=== PATIENT | male | born 1945 | race Caucasian/White ===

== ENCOUNTER 2017-10-19 08:45 | Outpatient (RCR) | payer MEDICARE, SELFPAY ==
--- NOTE | 2017-10-15 10:54 | PT.OTN ---
Current Diagnoses Parkinson's disease (10/15/17) Unspecified abnormalities of gait and mobility (10/15/17) Transition note: On October 13, 2017 our therapy services consisting of Speech, Occupational, and Physical Therapy transitioned from the [employer] electronic documentation system to a new [employer] electronic documentation system.?? All documentation prior to October 13 can be found under [employer] saved data. From October 13 forward all medical record documentation will be in [employer] 6.1.
--- NOTE | 2017-10-15 15:44 | PT.OTN ---
Current Diagnoses Parkinson's disease (10/15/17) Unspecified abnormalities of gait and mobility (10/15/17) Physical Therapy Treatment Note PT-OP-A Visit Information Start: 10/15/17 15:06 Freq: Status: Active Protocol: Activity Type Activity Date Activity User E-Sign Co-Sign Detail Recorded Client Recorded Date Recorded By Document 10/15/17 15:09 AMB [email or web address] 10/15/17 15:18 AMB 10/15/17 15:09 Out-Patient Physical Therapy Visit Information [Visit Information] -Visit Type Treatment Note -Visit Note POC expires . G codes 0/ 10. -Visit Start Time 09:00 -Visit Stop Time 09:45 -Total Visit Minutes 45 -Visit Number 10 PT-OP-C Subjective Start: 10/15/17 15:06 Freq: Status: Active Protocol: Activity Type Activity Date Activity User E-Sign Co-Sign Detail Recorded Client Recorded Date Recorded By Document 10/15/17 15:23 AMB [email or web address] 10/15/17 15:43 AMB 10/15/17 15:23 OP-PT Subjective [Patient Comments] -Patient Comments Pt reports he is doing well, he is going to [place] next week. -Patient Reported Progress Improving PT-OP-Q Treatments Start: 10/15/17 15:06 Freq: Status: Active Protocol: Activity Type Activity Date Activity User E-Sign Co-Sign Detail Recorded Client Recorded Date Recorded By Document 10/15/17 15:23 AMB [email or web address] 10/15/17 15:43 AMB 10/15/17 15:23 Therapeutic Exercises [Supine Exercises] 2 -Supine Exercise Name Pec stretch -Reps/Minutes 1 minute x 2 1 -Supine Exercise Name hip flexor stretch, supine and kneeling -Side right -Reps/Minutes 1 minute x 5 [Sidelying Exercises] 1 -Sidelying Exercise Name Hip abduction -Side right -Reps/Minutes 3x12 [Sitting Exercises] 1 -Sitting Exercise Name Sit to stand with UE flex/ ext -Reps/Minutes 2x10 Neuro Re-Education Treatment [Balance Activities] 5 -Details Walking with HT -Reps/Duration 5 4 -Details 3 step and SLS HT -Reps/Duration 5 min 3 -Details Dynamic balance WBOS trunk rotation -Reps/Duration 5 min 2 -Details Dynamic balance stride stance with UE flex and ext -Reps/Duration 5 min 1 -Details SLS -Surface firm -Reps/Duration 30 seconds on L 22 seconds on R PT-OP-T Assessment and Plan Start: 10/15/17 15:06 Freq: Status: Active Protocol: Activity Type Activity Date Activity User E-Sign Co-Sign Detail Recorded Client Recorded Date Recorded By Document 10/15/17 15:23 AMB [email or web address] 10/15/17 15:43 AMB 10/15/17 15:23 Physical Therapy Assessment [Assessment Summary] -Assessment The patient was able to improve both his walking with head turns and single leg stance. Physical Therapy Plan [Next Visit Focus/Plan] -Next Visit Plan Possible d/c next visit
--- NOTE | 2017-10-20 16:33 | PT.OTN ---
Current Diagnoses Parkinson's disease (10/19/17) Unspecified abnormalities of gait and mobility (10/19/17) Physical Therapy Treatment Note PT-OP-A Visit Information Start: 10/15/17 15:06 Freq: Status: Active Protocol: Document 10/19/17 08:45 AMB (Rec: 10/20/17 16:33 AMB [email or web address]) Out-Patient Physical Therapy Visit Information Visit Information Visit Type Treatment Note Visit Start Time 09:00 Visit Stop Time 09:45 Total Visit Minutes 45 Visit Number 11 Evaluation Information Evaluation Date 11/11/17 PT-OP-C Subjective Start: 10/15/17 15:06 Freq: Status: Active Protocol: Document 10/19/17 08:45 AMB (Rec: 10/20/17 16:33 AMB [email or web address]) OP-PT Subjective Patient Comments Patient Comments Patient states all his questions have been answered about his exercises at this time. PT-OP-Q Treatments Start: 10/15/17 15:06 Freq: Status: Active Protocol: Document 10/19/17 08:45 AMB (Rec: 10/20/17 16:33 AMB [email or web address]) Therapeutic Exercises Supine Exercises 1 Supine Exercise Name hip flexor stretch, supine and kneeling Side right Reps/Minutes 1 minute x 5 Sidelying Exercises 1 Sidelying Exercise Name Hip abduction Side right Reps/Minutes 3x12 Neuro Re-Education Treatment Balance Activities 4 Details 3 step and SLS HT Reps/Duration 5 min 3 Details Dynamic balance WBOS trunk rotation Reps/Duration 5 min 2 Details Dynamic balance stride stance with UE flex and ext Reps/Duration 5 min 1 Details SLS Surface firm Reps/Duration 30 seconds on L 22 seconds on R PT-OP-T Assessment and Plan Start: 10/15/17 15:06 Freq: Status: Active Protocol: Document 10/19/17 08:45 AMB (Rec: 10/20/17 16:33 AMB [email or web address]) Physical Therapy Assessment Goals 2 Impairment Balance Short Term Goal (STG) The patient will perform single leg stance with eyes open for 20 seconds without LOB.--MET Correction Goal (LTG) The patient will go mountain biking for 30 minutes without a loss of balance.-- MET 1 Impairment Gait Short Term Goal (STG) The patient will walk with horizontal head turns without veering or dizziness.-- MET Assembler Crimper Goal (LTG) The patient will ambulate 1 hour in the community over uneven terrain with good trunk rotation and stride length. --MET Assessment Summary Assessment The patient has met his goals. He continues to have resting tremor and increased thoracic kyphosis, but is able to participate fully in his functional activities and exercise at this time. Physical Therapy Plan Discharge Physical Therapy Discharge Reasons Goals Met Discharge Comments The patient is going to [facility] and will be gone for multiple weeks. He may benefit from further physical therapy in the future but at this time is independent with his HEP.
--- NOTE | 2017-10-20 16:34 | PT.OPDS ---
Current Diagnoses Parkinson's disease (10/19/17) Unspecified abnormalities of gait and mobility (10/19/17) Provider Visit Care Team Role Provider Type Peter Rangel MD Attending Provider Physician Family Provider Primary Care Provider Specialty: Family [facility] Address: [address] [place] [address], [id number] Email: [email or web address] Discharge Summary PT-OP-C Subjective Start: 10/15/17 15:06 Freq: Status: Active Protocol: Document 10/19/17 08:45 AMB (Rec: 10/20/17 16:33 AMB [email or web address]) OP-PT Subjective Patient Comments Patient Comments Patient states all his questions have been answered about his exercises at this time. PT-OP-T Assessment and Plan Start: 10/15/17 15:06 Freq: Status: Active Protocol: Document 10/19/17 08:45 AMB (Rec: 10/20/17 16:33 AMB [email or web address]) Physical Therapy Assessment Goals 2 Impairment Balance Short Term Goal (STG) The patient will perform single leg stance with eyes open for 20 seconds without LOB.--MET Camouflage Specialist Goal (LTG) The patient will go mountain biking for 30 minutes without a loss of balance.-- MET 1 Impairment Gait Short Term Goal (STG) The patient will walk with horizontal head turns without veering or dizziness.-- MET Nursing Home Goal (LTG) The patient will ambulate 1 hour in the community over uneven terrain with good trunk rotation and stride length. --MET Assessment Summary Assessment The patient has met his goals. He continues to have resting tremor and increased thoracic kyphosis, but is able to participate fully in his functional activities and exercise at this time. Physical Therapy Plan Discharge Physical Therapy Discharge Reasons Goals Met Discharge Comments The patient is going to [place] and will be gone for multiple weeks. He may benefit from further physical therapy in the future but at this time is independent with his HEP.
== END 2017-11-03 16:17 ==
LOC: PHYS 08:45
PROVIDERS: Family Provider Family Medicine; PCP Family Medicine; Visit Provider Family Medicine
DX: G20 Parkinson's disease (principal); R26.9 Unspecified abnormalities of gait and mobility
CPT/HCPCS: 97110; 97112

== ENCOUNTER → 2018-03-09 07:15 | Outpatient (CLI) | payer MEDICARE, SELFPAY ==
[2018-03-09 09:01] LABS: Cholesterol 144 mg/dL (140-199); HDL Cholesterol 61 mg/dL (40-60); LDL Cholesterol Calculated 71 mg/dL (<100); Triglycerides 58 mg/dL (35-150)
== END ==
PROVIDERS: PCP Family Medicine; Visit Provider Family Medicine
DX: E78.00 Pure hypercholesterolemia, unspecified (principal); N40.1 Benign prostatic hyperplasia with lower urinary tract symptoms
CPT/HCPCS: 36415; 80061; 84153

== ENCOUNTER → 2018-07-29 10:20 | Outpatient (CLI) | payer MEDICARE, SELFPAY ==
--- NOTE | 2018-07-29 10:27 | DI.RAD.S_ITS ---
PROCEDURE: XR LUMBAR SPINE 2-3V INDICATIONS: BACK PAIN TECHNIQUE: 3 views of the lumbar spine were acquired. COMPARISON: None. FINDINGS: Bones: No fracture or focal osseous destruction. Diffuse facet arthropathy. Moderate narrowing of the L5-S1 disc space and mild narrowing of the L1-L2 and L2-L3 disc space. Mild narrowing of the L4-L5 disc space. Endplate sclerosis and spurring Soft tissues: Overlying bowel gas pattern is normal. No suspicious soft tissue calcifications. IMPRESSION: Diffuse multilevel lumbar spondylosis most pronounced at L5-S1. Facet arthropathy. Dictated by: Ankit Snell M.D. on 08/03/2018 at 13:01 Approved by: Ankit Snell M.D. on 08/03/2018 at 13:08
== END ==
PROVIDERS: PCP Internal Medicine; Visit Provider Internal Medicine
DX: M54.9 Dorsalgia, unspecified (principal); M47.817 Spondylosis without myelopathy or radiculopathy, lumbosacral region; M47.816 Spondylosis without myelopathy or radiculopathy, lumbar region
CPT/HCPCS: 72100

== ENCOUNTER → 2018-10-07 09:08 | Outpatient (CLI) | payer MEDICARE, SELFPAY ==
--- NOTE | 2018-10-07 09:22 | DI.CT.S_ITS ---
PROCEDURE: CT KIDNEY URETER BLADDER (KUB) INDICATIONS: GROSS HEMATURIA RIGHT FLANK PAIN TECHNIQUE: Noncontrast 5 mm thick sections acquired from the diaphragms to the symphysis. 5 mm thick coronal and sagittal reformats were then performed. For radiation dose reduction, the following was used: automated exposure control, adjustment of mA and/or kV according to patient size. COMPARISON: [facility], CT, ABDOMEN/PELVIS WITH CONTRAST, 10/10/2016, 9:35. [facility], CR, XR LUMBAR SPINE 2-3V, 07/29/2018, 10:27. FINDINGS: Image quality: Excellent. Lung bases: Lung bases are clear. Heart size is normal. Urinary system: Both kidneys are normal in size. No kidney stones. No hydronephrosis or perinephric fat stranding. Both ureters appear non-dilated throughout their expected courses. Bladder wall thickness is normal; no calcified bladder stones. Other solid organs: Liver is normal in size. Gallbladder wall is not thickened. Pancreas is normal in contours. Spleen is normal in size. No adrenal nodules. Peritoneum and bowel: Unenhanced bowel loops demonstrate normal wall thickness and caliber. No free fluid or air. Nodes and vessels: No retroperitoneal or mesenteric adenopathy by size criteria. Aorta and inferior vena cava are normal in caliber. Atherosclerotic calcification is noted. Abdominal wall: No ventral hernias. Pelvis: No free pelvic fluid. No inguinal hernias or adenopathy. Bones: No suspicious bony lesions. No vertebral body compression fractures. Degenerative changes are seen, which are most prominent at the L5-S1 level. IMPRESSION: Negative for stones or obstructive uropathy. For further evaluation of the patient's presenting history of hematuria, please consider a dedicated hematuria protocol CT without and with contrast (assuming that there is no contraindication). Incidental note is made of: Focal L5-S1 degenerative change Dictated by: Ascencion Baron M.D. on 10/07/2018 at 8:45 Approved by: Ascencion Baron M.D. on 10/07/2018 at 8:47
== END ==
PROVIDERS: PCP Internal Medicine; Visit Provider Internal Medicine
DX: R31.0 Gross hematuria (principal); R10.9 Unspecified abdominal pain; M47.817 Spondylosis without myelopathy or radiculopathy, lumbosacral region
CPT/HCPCS: 74176

== ENCOUNTER → 2018-10-11 17:37 | Outpatient (CLI) | payer MEDICARE, SELFPAY ==
--- NOTE | 2018-10-11 17:39 | DI.MRI.S_ITS ---
PROCEDURE: MR LUMBAR SPINE WO CON INDICATIONS: LUMBAR RADICULOPATHY TECHNIQUE: Noncontrast sagittal T1 spin echo and T2 fast echo, sagittal STIR, axial T1 and T2 fast spin echo through the lumbar spine. In cases with scoliosis, additional coronal T2 fast spin echo may be performed. COMPARISON: [facility], CT, CT KIDNEY URETER BLADDER (KUB), 10/07/2018, 9:13. [facility], RF, LUMBAR FACET, 07/16/2015, 14:59. [facility], RF, LUMBAR TRANSFORAMINAL ADOLFO, 05/21/2015, 16:21. [facility], CR, XR LUMBAR SPINE 2-3V, 07/29/2018, 10:27. FINDINGS: Image quality: Excellent. Alignment and Curvature: There is normal bony alignment. Bone Marrow: Marrow is of normal overall signal. No acute vertebral body compression fractures. Mild symmetric sacroiliac joint degeneration Spinal Cord: Conus medullaris terminates at the L1 level. Visualized cord demonstrates normal signal and size. Paraspinous Soft Tissues: No paravertebral masses. L1-L2: Preserved disc height . There is mild disc desiccation. There is minimal posterior disc bulge. The central canal is patent. No foraminal stenosis. No definitive nerve root impingement. L2-L3: Mild loss of disc height and disc desiccation. There is mild posterior disc bulge and superimposed posterior central annular fissure. Mild bilateral facet arthropathy and hypertrophy of ligamentum flavum. The central canal is mildly narrowed. Mild bilateral foraminal stenosis. No definitive nerve root impingement. L3-L4: Mild loss of disc height and disc desiccation. There is mild posterior disc bulge. Mild bilateral facet arthropathy and hypertrophy of ligamentum flavum. The central canal is patent. Mild bilateral foraminal stenosis. No definitive nerve root impingement. L4-L5: Mild loss of disc height and disc desiccation. There is diffuse posterior disc bulge and posterior and left posterior and posterior lateral disc protrusion. Moderate bilateral facet arthropathy and hypertrophy of ligamentum flavum. The central canal is severely narrowed. There is severe narrowing of the lateral recess bilaterally, left greater than right. Moderate left and mild right foraminal stenosis. Possible nerve root impingement bilaterally. L5-S1: Moderate loss of disc height and disc desiccation. There is diffuse posterior disc bulge and posterior central annular fissure. Mild bilateral facet arthropathy. The central canal is mildly narrowed. Moderate to severe bilateral foraminal stenosis. Possible nerve root impingement bilaterally. IMPRESSION: 1. Multilevel degenerative disc disease and facet arthropathy as described. 2. Severe central canal stenosis at L4-L5. 3. Severe narrowing of the lateral recess at L4-L5, left greater than right with possible nerve root impingement. 4. Multilevel foraminal stenosis as described. Dictated by: Renee Miller M.D. on 10/12/2018 at 9:18 Approved by: Renee Miller M.D. on 10/12/2018 at 10:12
== END ==
PROVIDERS: PCP Internal Medicine; Visit Provider Internal Medicine
DX: M51.16 Intervertebral disc disorders with radiculopathy, lumbar region (principal); M51.17 Intervertebral disc disorders with radiculopathy, lumbosacral region; M47.26 Other spondylosis with radiculopathy, lumbar region; M47.27 Other spondylosis with radiculopathy, lumbosacral region; M48.061 Spinal stenosis, lumbar region without neurogenic claudication; M48.07 Spinal stenosis, lumbosacral region
CPT/HCPCS: 72148

== ENCOUNTER 2018-12-14 09:41 | Outpatient (CLI) | payer MEDICARE, SELFPAY ==
[2018-12-14] VITALS (8 sets, daily range): BP systolic 111–139; BP diastolic 64–91; PULSE 55–78; RESP 16; TEMP 36.1; O2SAT 98–100
--- NOTE | 2018-12-14 09:42 | DI.RAD.S_ITS ---
PROCEDURE: PAIN L/SI FACET INJ/BLK 1STL INDICATIONS: 58425, 97045- Left L4/5, L5/S1 Facet Joint Injection FINDINGS: Fluoroscopic spot filming was performed to verify placement of spinal needles at the L4-L5 and L5-S1 levels. Appropriate location(s) of the needle tip(s) was confirmed by injection of iodinated contrast. Dictated by: Ankit Snell M.D. on 12/14/2018 at 12:09 Approved by: Ankit Snell M.D. on 12/14/2018 at 12:10
[2018-12-14] MEDS: MIDAZOLAM 5 MG/5 ML VIAL IV (10:49)
[2018-12-14] MEDS: fentaNYL 100 MCG/2 ML INJ 50 MCG IV (10:49)
[2018-12-14] MEDS: BUPIVACAINE 0.5% (PF) VIAL 2 ML INJ (10:55)
[2018-12-14] MEDS: LIDOCAINE 1% 20 ML INJ 5 ML INJ (10:55)
[2018-12-14] MEDS: BETAMETHASONE 30 MG/5 ML MDV 12 MG INJ (10:55)
[2018-12-14] MEDS: IOPAMIDOL 15 ML VIAL 3 ML INJ (10:55)
--- NOTE | 2018-12-14 10:57 | PC.NURSE ---
ASSISTING PT OFF TABLE AND TRANSPORTING TO POST PROC AREA IN STABLE CONDITION
--- NOTE | 2018-12-14 11:03 | P.PCN_ITS ---
Procedures Date/Time Date of procedure: 12/14/18 Time of procedure: 11:01 General Procedure description: PREOP DIAGNOSIS 1. FACET ARTHROPATHY, 2. AXIAL LBP, 3. MULTILEVEL DDD, POST OP DIAGNOSIS 1. FACET ARTHROPATHY, 2. AXIAL LBP, 3. MULTILEVEL DDD, PROCEDURES 1. FLUORSCOPICALLY GUIDED CONTRAST CONTROLLED FACET JOINT INJECTIONS LEFT L4/5, L5/S1 SURGEON: Jayme Gomes, DO INDICATIONS Onel is referred by Dr. Lemus for treatment of Axial LBP FINDINGS Multilevel Facet Arthropathy with Clinically significant axial LBP DESCRIPTION OF PROCEDURE Fluoroscopically guided, contrast-controlled left L4/5, L5/S1 facet joint inj ections. Following review of allergy and review of potential side effects and complications, including, but not necessarily limited to, infection, allergic reaction, local tissue breakdown, stroke, temporary or permanent nerve injury, paralysis, and possible , the patient indicated that the patient understood and agreed to proceed. An informed consent document was signed by the patient, witnessed by a nurse, and placed in the patient's chart. Additionally, other treatment options including medications, modalities, and physical therapy were reviewed with the patient. After review of previous anaesthesic history and IV conscious sedation the patient was deemed safe to proceed with todays procedure with IV conscious sedation as ASA class II designation. Safety time-out was performed to confirm patient ID, procedure to be performed and site of procedure. IV sedation was accomplished with a combination of 2mg of Versed and 50mcg of Fentanyl was administered by the RN after DO order, titrated to patient comfort during the course of the procedure while the patient remained responsive to all verbal commands. In the prone position, following sterile prep and drape of the lumbar region, the posterior aspect of the left L4/5, L5/S1 facet joints were identified fluoroscopically. The skin was anesthetized via a 25-gauge 1.5-inch needle with 1% lidocaine solution into the corresponding facet joints. At this point, a 22- gauge 3.5-inch spinal needle was atraumatically introduced and advanced under fluoroscopic guidance into the corresponding facet joints. Following negative aspiration, injections of approximately 0.2-cc of Isovue 200 confirmed interarticular placement without vascular uptake. Radiological data, including multiple fluoroscopic views of the lumbosacral spine, reveal a spinal needle at the left L4/5, L5/S1 facet joints. Subsequent views show flow of contrast material both superiorly and inferiorly within the joint space without vascular or intrathecal uptake. At this point, a total of 0.5 cc including a mixture of 0.25cc Marcaine and 0.25cc betamethasone was injected without complication into each of the corresponding facet joints. The procedure tolerated the procedure well without signs or symptoms of complications prior to transfer to the recovery area continued monitoring without incident. The patient was then transferred to the recovery area where they were observed for an appropriate period of time after the injection. The patient reported a VAS score of 7 prior to the procedure and a post-procedure VAS of 0. Total Fluoroscopy Time: 12.7 seconds Total Conscious Sedation Time: 24min POST OP INSTRUCTIONS The patient was provided a Pain Log to continue to record their response to the target-specific procedure prior to follow-up visit with their referring physician. Additionally, specific post-injection care instructions and a contact number to our office were provided if concerns arise regarding possible complic ations associated with the procedure are suspected. Jayme Gomes DO Complications: none
--- NOTE | 2018-12-14 11:03 | PC.NURSE ---
Returned from procedure awake and alert via wheelchair, able to transfer from w/c to chair with standby assist. Resumed monitoring with Teri AKINS.
== END 2018-12-14 11:52 ==
LOC: RAD 09:42
PROVIDERS: PCP Internal Medicine; Visit Provider Physical Medicine & Rehabilitation
DX: M47.817 Spondylosis without myelopathy or radiculopathy, lumbosacral region (principal); M47.816 Spondylosis without myelopathy or radiculopathy, lumbar region; M54.5 Low back pain; M51.36 Other intervertebral disc degeneration, lumbar region; M51.37 Other intervertebral disc degeneration, lumbosacral region
CPT/HCPCS: 64493; 64494; 99152; J0702; J2250; J3010

== ENCOUNTER → 2018-12-17 11:18 | Outpatient (CLI) | payer MEDICARE, SELFPAY ==
[2018-12-17 12:44] LABS: Add Manual Diff / Slide Review NO; Basophils Absolute Auto 0 /uL (0-100); Basophils Percent Auto 0.2 % (0-2); Eosinophils Absolute Auto 0 /uL (0-450); Eosinophils Percent Auto 0.5 % (2-4); Hematocrit 41.5 % (41-53); Hemoglobin 14.4 g/dL (13.5-17.5); Lymphocytes Absolute Auto 2100 /uL (1100-4500); Lymphocytes Percent Auto 27.1 % (25-40); Mean Corpuscular HGB Conc 34.7 % (30-36); Mean Corpuscular Hemoglobin 34.2 PG (26-34); Mean Corpuscular Volume 98.7 fL (80-100); Monocytes Absolute Auto 700 /uL (0-900); Monocytes Percent Auto 8.7 % (3-14); Neutrophils Absolute Auto 5000 /uL (1500-7000); Neutrophils Percent Auto 63.5 % (50-75); Platelet Count 116 X10^3/uL (150-400); Red Cell Distribution Width 13.1 % (11.6-14.8); White Blood Cell Count 7.9 X10^3/uL (4.5-11.0)
== END ==
PROVIDERS: PCP Internal Medicine; Visit Provider Internal Medicine
DX: D69.6 Thrombocytopenia, unspecified (principal)
CPT/HCPCS: 36415; 85025

== ENCOUNTER 2019-02-01 13:50 | Outpatient (CLI) | payer MEDICARE, SELFPAY ==
[2019-02-01] VITALS (7 sets, daily range): BP systolic 122–160; BP diastolic 73–109; PULSE 62–77; RESP 16; TEMP 36.6; O2SAT 98–100
--- NOTE | 2019-02-01 13:51 | DI.RAD.S_ITS ---
PROCEDURE: PAIN L/SI FACET INJ/BLK 1STL INDICATIONS: RADICULOPATHY FINDINGS: Fluoroscopic spot filming was performed to verify placement of spinal needles at the L3, L4, L5 level(s), as labeled on the films. Appropriate location(s) of the needle tip(s) was confirmed by injection of iodinated contrast. Dictated by: Ankit Snell M.D. on 02/01/2019 at 15:22 Approved by: Ankit Snell M.D. on 02/01/2019 at 15:23
--- NOTE | 2019-02-01 14:39 | PM.PROC.1 ---
Procedures Date/Time Date of procedure: 02/01/19 Time of procedure: 14:39 General Procedure description: POST OP DIAGNOSIS 1. FACET ARTHROPATHY PROCEDURES 1. Left L4, L5 and S1 MB BLOCKS PHYSICIAN: Jayme Gomes DO INDICATIONS Onel is referred by Dr. Lemus for treatment of Left Axial LBP. DESCRIPTION OF PROCEDURE Fluoroscopically guided, contrast-controlled left L4, L5 and S1 medial branch blocks with 0.5cc of 0.5% Marcaine. Following review of allergy and review of potential side effects and complications, including, but not necessarily limited to, infection, allergic reaction, local tissue breakdown, nerve injury, paralysis, stroke and possible , the patient indicated that the patient understood and agreed to proceed. An informed consent document was signed by the patient, witnessed by a nurse, and placed in the patient's chart. After review of previous anaesthesic history and IV conscious sedation the patient was deemed safe to proceed with todays procedure with IV conscious sedation as ASA class II designation. Safety time-out was performed to confirm patient ID, procedure to be performed and site of procedure. IV sedation was accomplished with a combination of 2mg of Versed and 50mcg of Fentanyl was administered by the RN after DO order, titrated to patient comfort during the course of the procedure while the patient remained responsive to all verbal commands. In the prone position, following sterile prep and drape of the lumbar region, the left L4, L5 and S1 anatomical location of the medial branch of the dorsal ramus was identified fluoroscopically. Subsequently an anesthetic skin wheal using 1% lidocaine solution was initiated at each of the anatomical spots. Subsequently then a 22-gauge 3.5-inch spinal needle was atraumatically introduced and advanced under fluoroscopic guidance at each of the corresponding sites at the left L4, L5 and S1 MB. After negative aspiration, 0.2 cc of Isovue 200 was injected, confirming placement without vascular or intrathecal uptake. Subsequently then 0.5 cc of 0.5% Marcaine solution was injected at each of the corresponding sites at the left L4, L5 and S1 medial branch locations. The patient tolerated the procedure well without signs or symptoms of complications. The patient tolerated the procedure well without signs or symptoms of complications prior to transfer to the recovery area continued monitoring without incident. Post-procedure, the patient was monitored initiating provocative activities to measure the amount of relief from block of the facetogenic pain. The patient reported a VAS of 7 prior to the procedure and a post-procedure VAS of 1. It has been a pleasure to assist in the diagnostic and therapeutic care of your patient. Total Fluoroscopy Time: 24.8 seconds Total Conscious Sedation Time: 24min POST OP INSTRUCTIONS The patient was provided with a Pain Log to complete over the next several hours and subsequent days prior to the patient's follow up with the ordering physician. If the patient has refrigerating technician relief to the solution applied, then they may be a candidate for medial branch rhizotomy. The patient is aware, was provided, once again, with a Pain Log and will follow up with the referring physician for review and clinical correlation Jayme Gomes DO Complications: none
[2019-02-01] MEDS: MIDAZOLAM 5 MG/5 ML VIAL IV (14:44)
[2019-02-01] MEDS: fentaNYL 100 MCG/2 ML INJ 50 MCG IV (14:45)
[2019-02-01] MEDS: IOPAMIDOL 15 ML VIAL 3 ML INJ (14:50)
[2019-02-01] MEDS: LIDOCAINE 1% 20 ML INJ 10 ML INJ (14:50)
[2019-02-01] MEDS: BETAMETHASONE 30 MG/5 ML MDV 12 MG INJ (14:50)
[2019-02-01] MEDS: BUPIVACAINE 0.5% (PF) VIAL 2 ML INJ (14:50)
--- NOTE | 2019-02-01 14:55 | PC.NURSE ---
ASSISTING PT OFF TABLE AND TRANSPORTING TO POST PROC AREA IN STABLE CONDITION
== END 2019-02-01 16:14 | disposition home or self-care (01) ==
LOC: RAD 13:51
PROVIDERS: Family Provider Internal Medicine; PCP Internal Medicine; Visit Provider Physical Medicine & Rehabilitation
DX: M47.817 Spondylosis without myelopathy or radiculopathy, lumbosacral region (principal); M47.27 Other spondylosis with radiculopathy, lumbosacral region; M51.26 Other intervertebral disc displacement, lumbar region
CPT/HCPCS: 64493; J0702; J2250; J3010

== ENCOUNTER → 2019-03-31 07:59 | Outpatient (CLI) | payer MEDICARE, SELFPAY ==
[2019-03-31 09:24] LABS: Alanine Aminotransferase 22 IU/L (21-72); Albumin 4.3 g/dL (3.5-5.0); Albumin Globulin Ratio 1.8 (1.0-2.8); Alkaline Phosphatase 80 U/L (38-126); Aspartate Aminotransferase 33 IU/L (17-59); Bilirubin Total 0.8 mg/dL (0.2-1.3); Blood Urea Nitrogen 13 mg/dL (9-20); Calcium 9.6 mg/dL (8.4-10.2); Carbon Dioxide 29 mmol/L (22-32); Chloride 102 mmol/L (98-107); Cholesterol 142 mg/dL (140-199); Estimated Glomerular Filt Rate > 60.0 mL/min (>60); Globulin 2.4 g/dL (1.7-4.1); Glucose 89 mg/dL (80-110); HDL Cholesterol 59 mg/dL (40-60); LDL Cholesterol Calculated 72 mg/dL (<100); Potassium 4.5 mmol/L (3.4-5.1); Sodium 137 mmol/L (137-145); Total Protein 6.7 g/dL (6.3-8.2); Triglycerides 56 mg/dL (35-150)
[2019-03-31 15:45] LABS: HEMOLYSIS < 15 (0-50); Prostate Specific Antigen Scrn 1.71 ng/mL (0.1-4.0)
== END ==
PROVIDERS: PCP Internal Medicine; Visit Provider Internal Medicine
DX: D48.5 Neoplasm of uncertain behavior of skin (principal); E78.00 Pure hypercholesterolemia, unspecified; Z12.5 Encounter for screening for malignant neoplasm of prostate
CPT/HCPCS: 36415; 80053; 80061; G0103

== ENCOUNTER 2019-04-22 07:33 | Outpatient (CLI) | payer MEDICARE, SELFPAY ==
[2019-04-22] VITALS (8 sets, daily range): BP systolic 98–160; BP diastolic 59–88; PULSE 62–73; RESP 16–18; TEMP 36.3; O2SAT 97–100
--- NOTE | 2019-04-22 07:34 | DI.RAD.S_ITS ---
PROCEDURE: PAIN L/S MED/LAT N RFA INDICATIONS: RADICULOPATHY FINDINGS: Fluoroscopic spot filming was performed to verify placement of spinal needles at the L4, L5 and S1 level(s), as labeled on the films. Appropriate location(s) of the needle tip(s) was confirmed by injection of iodinated contrast. IMPRESSION: Fluoroscopy for pain management. Dictated by: Renee Miller M.D. on 04/22/2019 at 11:05 Approved by: Renee Miller M.D. on 04/22/2019 at 11:06
[2019-04-22] MEDS: MIDAZOLAM 5 MG/5 ML VIAL IV (08:15)
[2019-04-22] MEDS: fentaNYL 100 MCG/2 ML INJ 50 MCG IV (08:15)
[2019-04-22] MEDS: LIDOCAINE 1% 20 ML 10 ML INJ (08:25)
[2019-04-22] MEDS: BUPIVACAINE 0.5% (PF) VIAL 2 ML INJ (08:26)
[2019-04-22] MEDS: BETAMETHASONE 30 MG/5 ML MDV 12 MG INJ (08:26)
--- NOTE | 2019-04-22 08:35 | PC.NURSE ---
ASSISTING PT OFF TABLE AND TRANSPORTING TO POST PROC AREA IN STABLE CONDITION.
--- NOTE | 2019-04-22 08:44 | P.PCN_ITS ---
Procedures Date/Time Date of procedure: 04/22/19 Time of procedure: 08:44 General Procedure description: PREOP DIAGNOSIS 1. RECALCITRANT FACET ARTHROPATHY, POST OP DIAGNOSIS 1. RECALCITRANT FACET ARTHROPATHY, PROCEDURES 1. LEFTT L4 AND L5 MEDIAL BRANCH RADIOFREQUENCY NEUROTOMY AND LEFT S1 DORSAL RAMUS RADIOFREQUENCY NEUROTOMY, PHYSICIAN: Jayme Gomes DO INDICATIONS Onel is referred by for treatment of facet arthropathy. DESCRIPTION OF PROCEDURE Left L4 and L5 medial branch radiofrequency neurotomy and left S1 dorsal ramus branch radiofrequency neurotomy under fluoroscopy with conscious sedation. The patient is well known to this clinic having undergone previous facet injections with good but temporary relief. The patient has experienced appropriate, concordant relief with previous facet and median branch blocks but the patient's pain has been recalcitrant to further conservative measures. Therefore, based upon the patient's relief and persistent symptoms, the patient is considered an appropriate candidate for facet rhizotomy. All of the patient's questions regarding the risks versus benefits of the procedure, including, but not limited to, bleeding, infection, temporary as well as lasting nerve injury, paralysis, stroke, and , as well treatment alternatives were answered to satisfaction. After obtaining informed consent, denial of pertinent drug allergies, as well as being made aware of the potential risks of bleeding, infection, spinal cord trauma, paralysis, temporary and permanent nerve damage, seizure, stroke, and possible , the patient was brought to the fluoroscopy suite and positioned prone on the fluoroscopy table. The lumbar region was prepped with Betadine and covered with a fenestrated drape in the usual sterile fashion. Appropriate monitors applied including pulse oximeter, pulse, and blood pressure for regular monitoring throughout the procedure. IV sedation was accomplished with a combination of 2mg of Versed and 50mcg of Fentanyl titrated to patient comfort during the course of the procedure while the patient remained responsive to all verbal commands. After local infiltration using 1% lidocaine, under fluoroscopic guidance, a 10- cm RF insulated needle with a 10-mm active tip was positioned parallel to the junction of the left sacral ala and the superior articulating process where the S1 dorsal ramus resides. Needle placement was confirmed with sensory stimulation at 50 Hz, with motor stimulation of .5v on the left which produced local stimulation without radicular component. The stimulation was then increased to 1.5v with, once again, only local multifidus stimulation without radicular component. This was then followed by two discreet lesions performed at 80 degrees Celsius for 90 seconds each. The needle was then removed and the identical procedure was performed along the length of the left L5 medial branch with motor stimulation at .7v on the left. The identical procedure was once again performed along the length of the left L4 medial branch with motor stimulation of .5v on the left. The patient tolerated the procedure well without signs or symptoms of complications prior to transfer to the recovery area continued monitoring without incident. The patient was then transferred to the recovery area where they were observed for an appropriate period of time after the injection. The patient was then transferred to the recovery area where they were observed for an appropriate period of time after the injection. The patient reported a VAS score of 9 prior to the procedure and a post- procedure VAS of 0. Total Fluoroscopy Time: 22.7 seconds Total Conscious Sedation Time: 34min POST OP INSTRUCTIONS The patient was provided a Pain Log to continue to record the patient's response to the target-specific procedure prior to the patient's follow-up visit with the referring physician. Additionally, specific post-injection care instructions and a contact number to our office were provided if concerns arise regarding possible complications associated with the procedure are suspected. Jayme Gomes, Complications: none
== END 2019-04-22 09:00 | disposition home or self-care (01) ==
LOC: RAD 07:34
PROVIDERS: PCP Internal Medicine; Visit Provider Physical Medicine & Rehabilitation
DX: M47.816 Spondylosis without myelopathy or radiculopathy, lumbar region (principal); M47.817 Spondylosis without myelopathy or radiculopathy, lumbosacral region
CPT/HCPCS: 64635; 64636; 99152; J0702; J2250; J3010

== ENCOUNTER → 2020-02-08 15:35 | Outpatient (CLI) | payer MEDICARE, SELFPAY ==
[2020-02-08 16:54] LABS: Hematocrit 40.6 % (41-53); Hemoglobin 14.3 g/dL (13.5-17.5); Mean Corpuscular HGB Conc 35.2 % (30-36); Mean Corpuscular Hemoglobin 34.3 PG (26-34); Mean Corpuscular Volume 97.3 fL (80-100); Platelet Count 115 X10^3/uL (150-400); Red Blood Cell Count 4.18 X10^6/uL (4.5-5.9); Red Cell Distribution Width 12.4 % (11.6-14.8); White Blood Cell Count 6.2 X10^3/uL (4.5-11.0)
[2020-02-08 16:57] LABS: Appearance Urine UA CLEAR; Bilirubin Urine UA NEGATIVE (NEGATIVE); Color Urine UA YELLOW; Glucose Urine UA NEGATIVE (Negative); Ketones Urine UA NEGATIVE (NEGATIVE); Leukocyte Esterase Urine UA TRACE (NEGATIVE); Nitrite Urine UA NEGATIVE (Negative); Occult Blood Urine UA TRACE-INTACT (Negative); Protein Urine UA NEGATIVE (Negative); Urobilinogen Urine UA 0.2 E.U./dL (0.2); pH Urine UA 6.5 (4.5-8.0)
[2020-02-08 17:07] LABS: RBC Urine 0-1/HPF (0-5/HPF); WBC Urine 5-10/HPF (0-5/HPF)
[2020-02-08 17:08] LABS: Bacteria Urine Few (2-10); Culture Indicated Urine Specimen Cultured; Squamous Epithelial Cell Urine 0-1 /HPF (0-5/HPF)
[2020-02-08 17:15] LABS: Erythrocyte Sedimentation Rate 6 MM/HR (0-15)
[2020-02-08 17:22] LABS: Alanine Aminotransferase 20 IU/L (<50); Albumin 4.3 g/dL (3.5-5.0); Albumin Globulin Ratio 1.7 (1.0-2.8); Alkaline Phosphatase 95 U/L (38-126); Amylase 109 U/L (30-110); Aspartate Aminotransferase 34 IU/L (17-59); BUN Creatinine Ratio 15.1 (6-22); Bilirubin Total 0.7 mg/dL (0.2-1.3); Blood Urea Nitrogen 14 mg/dL (9-20); C-Reactive Protein Quant < 0.5 mg/dL (<1.0); Calcium 9.5 mg/dL (8.4-10.2); Carbon Dioxide 28 mmol/L (22-32); Chloride 96 mmol/L (98-107); Estimated Glomerular Filt Rate > 60.0 mL/min (>60); Globulin 2.5 g/dL (1.7-4.1); Glucose 89 mg/dL (80-110); HEMOLYSIS < 15 (0-50); Lactate Dehydrogenase 459 U/L (313-618); Lipase 95 U/L (23-300); Potassium 4.1 mmol/L (3.4-5.1); Sodium 132 mmol/L (137-145); Total Protein 6.8 g/dL (6.3-8.2)
[2020-02-08 17:26] LABS: Anisocytosis 1+; Neutrophils Absolute Manual 4960 /uL (3000-5900); Total Cells Counted 100
[2020-02-08 17:27] LABS: Poikilocytosis 1+; Tear Drop Cells 1+
[2020-02-08 17:48] LABS: TSH w/ Reflex to FT4 2.68 uIU/mL (0.47-4.68)
[2020-02-08 17:51] LABS: Prostate Specific Antigen 5.67 ng/mL (0.10-4.00)
== END ==
PROVIDERS: PCP Internal Medicine; Referring Provider Internal Medicine; Visit Provider Specialist
DX: N40.1 Benign prostatic hyperplasia with lower urinary tract symptoms (principal); N13.8 Other obstructive and reflux uropathy; R33.9 Retention of urine, unspecified; D69.6 Thrombocytopenia, unspecified; R63.4 Abnormal weight loss; Z80.42 Family history of malignant neoplasm of prostate
CPT/HCPCS: 36415; 80053; 81001; 82150; 83615; 83690; 84153; 84443; 85025; 85651; 86140; 87077; 87086; 87186; 99215

== ENCOUNTER → 2020-02-13 08:54 | Outpatient (CLI) | payer MEDICARE, SELFPAY ==
[2020-02-13 09:21] LABS: Occult Blood 1 Positive (Negative); Occult Blood 2 Positive (Negative); Occult Blood 3 Positive (Negative)
[2020-02-15 06:10] LABS: COVID19 Sendout Not Detected (Not Detect)
== END ==
PROVIDERS: Physician Assistant; PCP Internal Medicine; Referring Provider Internal Medicine; Visit Provider Internal Medicine
DX: Z11.59 Encounter for screening for other viral diseases (principal)
CPT/HCPCS: 82270; 87635

== ENCOUNTER → 2020-03-17 15:04 | Outpatient (CLI) | payer MEDICARE, SELFPAY ==
[2020-03-18 22:47] LABS: COVID19 Sendout Not Detected (Not Detect)
== END ==
PROVIDERS: PCP Internal Medicine; Visit Provider Physician Assistant
DX: Z11.59 Encounter for screening for other viral diseases (principal)
CPT/HCPCS: 87635

== ENCOUNTER → 2020-03-28 10:44 | Outpatient (CLI) | payer MEDICARE, SELFPAY ==
--- NOTE | 2020-03-28 10:53 | DI.RAD.S_ITS ---
PROCEDURE: XR LUMBAR SPINE MIN 4V INDICATIONS: BACK PAIN TECHNIQUE: 5 views of the lumbar spine were acquired. COMPARISON: [facility], CT, ABDOMEN/PELVIS WITH CONTRAST, 10/10/2016, 9:35. [facility], CR, XR LUMBAR SPINE 2-3V, 07/29/2018, 10:27. FINDINGS: Bones: 5 nonrib-bearing vertebrae are present. There is mild dextrocurvature of the lower lumbar spine. AP alignment is within normal limits. No acute vertebral body compression fractures. No suspicious bony lesions. There are moderate multilevel spondylosis with disc space loss and degenerative endplate changes most pronounced at L2-3, L4-5, and L5-S1. Moderate mid and lower lumbar facet arthropathy. Soft tissues: Overlying bowel gas pattern is normal. No suspicious soft tissue calcifications. Moderate amount of fecal material noted within the right lower quadrant. Surgical clips present in the lower pelvis. Oblique images: No pars defects. IMPRESSION: 1. Lumbar spine without acute osseous abnormalities. 2. Moderate multilevel lumbar spondylosis as described above. Dictated by: Viktor Mcgovern M.D. on 03/28/2020 at 14:40 Approved by: Viktor Mcgovern M.D. on 03/28/2020 at 14:52
== END ==
PROVIDERS: PCP Internal Medicine; Referring Provider Specialist; Visit Provider Specialist
DX: M47.27 Other spondylosis with radiculopathy, lumbosacral region (principal); M47.26 Other spondylosis with radiculopathy, lumbar region; M51.26 Other intervertebral disc displacement, lumbar region; N40.1 Benign prostatic hyperplasia with lower urinary tract symptoms; N13.8 Other obstructive and reflux uropathy; G20 Parkinson's disease
CPT/HCPCS: 72110; 99214

== ENCOUNTER → 2020-03-29 08:13 | Outpatient (CLI) | payer MEDICARE, SELFPAY ==
[2020-03-29 12:06] LABS: Prostate Specific Antigen 3.44 ng/mL (0.10-4.00)
== END ==
PROVIDERS: Specialist; PCP Internal Medicine; Referring Provider Internal Medicine; Visit Provider Internal Medicine
DX: N39.0 Urinary tract infection, site not specified (principal); N13.8 Other obstructive and reflux uropathy; N40.1 Benign prostatic hyperplasia with lower urinary tract symptoms
CPT/HCPCS: 36415; 84153; 87086

== ENCOUNTER → 2020-04-14 09:31 | Outpatient (CLI) | payer MEDICARE, SELFPAY ==
[2020-04-16 02:27] LABS: COVID19 Sendout Not Detected (Not Detect)
== END ==
PROVIDERS: PCP Internal Medicine; Visit Provider Nurse Practitioner
DX: Z11.59 Encounter for screening for other viral diseases (principal)
CPT/HCPCS: 87635

== ENCOUNTER 2020-04-17 09:26 | Outpatient (CLI) | payer MEDICARE, SELFPAY ==
--- NOTE | 2020-04-17 09:28 | DI.RAD.S_ITS ---
PROCEDURE: PAIN L/SI FACET INJ/BLK 1STL INDICATIONS: SPONDYLOSIS COMPARISON: [facility], , PAIN L/SI FACET INJ/BLK 1STL, 02/01/2019, 14:53. FINDINGS: Fluoroscopic spot filming was performed to verify placement of spinal needles at the L4-L5 and L5-S1 levels on the right, as labeled on the films. Appropriate location(s) of the needle tip(s) was confirmed by injection of iodinated contrast. IMPRESSION: Intraprocedural examination within normal limits. Dictated by: Ascencion Baron M.D. on 04/17/2020 at 12:07 Approved by: Ascencion Baron M.D. on 04/17/2020 at 12:08
[2020-04-17 10:11] VITALS: BP 114/70; PULSE 60; RESP 14; TEMP 36.1; O2SAT 100
[2020-04-17] MEDS: MIDAZOLAM 5 MG/5 ML VIAL IV (11:00)
[2020-04-17] MEDS: fentaNYL 100 MCG/2 ML INJ 50 MCG IV (11:02)
[2020-04-17 11:05] VITALS: BP 128/59; PULSE 65; RESP 13; O2SAT 98
[2020-04-17] MEDS: BUPIVACAINE 0.5% (PF) VIAL 5 ML INJ (11:05)
[2020-04-17] MEDS: IOPAMIDOL 15 ML VIAL 3 ML INJ (11:06)
[2020-04-17] MEDS: BETAMETHASONE 30 MG/5 ML MDV 12 MG INJ (11:06)
--- NOTE | 2020-04-17 11:11 | P.PCN_ITS ---
Date/Time/Diagnoses Date of procedure: 04/17/20 Time of procedure: 11:11 Pre-procedure diagnosis: 1. FACET ARTHROPATHY, 2. AXIAL LBP, 3. MULTILEVEL DDD Post-procedure diagnosis: same Procedure Notes Procedure: 1. FLUOROSCOPICALLY GUIDED CONTRAST CONTROLLED FACET JOINT INJECTIONS RIGHT L4/5, L5/S1 Indications: Kenneth is referred by Dr. Lemus for treatment of Axial LBP Physician: Jayme Gomes Total Fluoroscopy time (seconds): 4 Total sedation minutes: 8 Complications: none Procedure in detail & Post-procedure care: FINDINGS Multilevel Facet Arthropathy with Clinically significant axial LBP DESCRIPTION OF PROCEDURE Fluoroscopically guided, contrast-controlled right L4/5, L5/S1 facet joint injections. Following review of allergy and review of potential side effects and complications, including, but not necessarily limited to, infection, allergic reaction, local tissue breakdown, stroke, temporary or permanent nerve injury, paralysis, and possible , the patient indicated that the patient understood and agreed to proceed. An informed consent document was signed by the patient, witnessed by a nurse, and placed in the patient's chart. Additionally, other treatment options including medications, modalities, and physical therapy were reviewed with the patient. After review of previous anaesthesic history and IV conscious sedation the patient was deemed safe to proceed with today?s procedure with IV conscious sedation as ASA class II designation. Safety time-out was performed to confirm patient ID, procedure to be performed and site of procedure. IV sedation was accomplished with a combination of 2mg of Versed and 50mcg of Fentanyl was administered by the RN after DO order, titrated to patient comfort during the course of the procedure while the patient remained responsive to all verbal commands. In the prone position, following sterile prep and drape of the lumbar region, the posterior aspect of the right L4/5, L5/S1 facet joints were identified fluoroscopically. The skin was anesthetized via a 25-gauge 1.5-inch needle with 1% lidocaine solution into the corresponding facet joints. At this point, a 22- gauge 3.5-inch spinal needle was atraumatically introduced and advanced under fluoroscopic guidance into the corresponding facet joints. Following negative aspiration, injections of approximately 0.2-cc of Isovue 200 confirmed i nterarticular placement without vascular uptake. Radiological data, including multiple fluoroscopic views of the lumbosacral spine, reveal a spinal needle at the right L4/5, L5/S1 facet joints. Subsequent views show flow of contrast material both superiorly and inferiorly within the joint space without vascular or intrathecal uptake. At this point, a total of 0.5cc including a mixture of 0.25cc Marcaine and 0.25cc betamethasone was injected without complication into each of the corresponding facet joints. The procedure tolerated the procedure well without signs or symptoms of complic ations prior to transfer to the recovery area continued monitoring without incident. The patient was then transferred to the recovery area where they were observed for an appropriate period of time after the injection. The patient reported a VAS score of 6 prior to the procedure and a post-procedure VAS of 0. POST OP INSTRUCTIONS The patient was provided a Pain Log to continue to record their response to the target-specific procedure prior to follow-up visit with their referring physician. Additionally, specific post-injection care instructions and a contact number to our office were provided if concerns arise regarding possible complications associated with the procedure are suspected.
[2020-04-17 11:16] VITALS: BP 147/77; PULSE 68; RESP 15; O2SAT 98
[2020-04-17 11:20] VITALS: BP 132/76; PULSE 64; RESP 20; O2SAT 97
[2020-04-17 11:25] VITALS: BP 127/74; PULSE 64; RESP 20; O2SAT 97
[2020-04-17 11:30] VITALS: BP 125/74; PULSE 63; RESP 20; O2SAT 97
== END 2020-04-17 11:50 | disposition home or self-care (01) ==
PROVIDERS: PCP Internal Medicine; Referring Provider Physical Medicine & Rehabilitation; Visit Provider Physical Medicine & Rehabilitation
DX: M47.817 Spondylosis without myelopathy or radiculopathy, lumbosacral region (principal); M47.816 Spondylosis without myelopathy or radiculopathy, lumbar region; M54.5 Low back pain; M51.36 Other intervertebral disc degeneration, lumbar region; M51.37 Other intervertebral disc degeneration, lumbosacral region
CPT/HCPCS: 64493; 64494; J0702; J2250; J3010

== ENCOUNTER → 2020-04-26 09:50 | Outpatient (CLI) | payer MEDICARE, SELFPAY ==
--- NOTE | 2020-04-26 | DI.RAD.S_ITS ---
PROCEDURE: FL BARIUM ENEMA INDICATIONS: Acquired absence of other specified parts of diges COMPARISON: None. FINDINGS: KUB: Preprocedural retail service lead merchandiser film demonstrates a normal bowel gas pattern. No suspicious abdominal calcifications. Visualized solid organ contours appear normal in size. No suspicious bony lesions. Colon: There is adequate opacification of the entire colon. No strictures or extrinsic mass effects are identified. No colonic fistulae or perforations. Colon caliber appears normal. IMPRESSION: The colon is redundant and overlapping but the examination is diagnostic for absence of identifiable mass, stricture or polyp. Minimal diverticulosis at the sigmoid colon is noted. The colon is visualized to the cecal tip. Dictated by: Trung Millan M.D. on 04/26/2020 at 13:03 Approved by: Trung Millan M.D. on 04/26/2020 at 13:05
== END ==
PROVIDERS: PCP Internal Medicine; Referring Provider Internal Medicine; Visit Provider Internal Medicine
DX: Q43.8 Other specified congenital malformations of intestine (principal); Z90.49 Acquired absence of other specified parts of digestive tract
CPT/HCPCS: 74270

== ENCOUNTER → 2020-05-22 07:09 | Outpatient (CLI) | payer MEDICARE, SELFPAY ==
[2020-05-22 08:26] LABS: Hematocrit 41.5 % (41-53); Hemoglobin 14.3 g/dL (13.5-17.5); Mean Corpuscular HGB Conc 34.4 % (30-36); Mean Corpuscular Hemoglobin 33.4 PG (26-34); Mean Corpuscular Volume 97.1 fL (80-100); Platelet Count 115 X10^3/uL (150-400); Red Blood Cell Count 4.28 X10^6/uL (4.5-5.9); Red Cell Distribution Width 12.9 % (11.6-14.8); White Blood Cell Count 6.3 X10^3/uL (4.5-11.0)
[2020-05-22 08:27] LABS: Alanine Aminotransferase 18 IU/L (<50); Albumin Globulin Ratio 1.5 (1.0-2.8); Alkaline Phosphatase 87 U/L (38-126); Aspartate Aminotransferase 34 IU/L (17-59); BUN Creatinine Ratio 14.3 (6-22); Bilirubin Total 0.7 mg/dL (0.2-1.3); Blood Urea Nitrogen 14 mg/dL (9-20); Calcium 9.3 mg/dL (8.4-10.2); Carbon Dioxide 29 mmol/L (22-32); Chloride 101 mmol/L (98-107); Cholesterol 134 mg/dL (140-199); Estimated Glomerular Filt Rate > 60.0 mL/min (>60); Globulin 2.7 g/dL (1.7-4.1); Glucose 96 mg/dL (80-110); HDL Cholesterol 57 mg/dL (40-60); HEMOLYSIS < 15 (0-50); LDL Cholesterol Calculated 68 mg/dL (<100); Potassium 4.6 mmol/L (3.4-5.1); Sodium 134 mmol/L (137-145); Total Protein 6.7 g/dL (6.3-8.2); Triglycerides 46 mg/dL (35-150)
[2020-05-22 08:42] LABS: Vitamin D 25 Hydroxy (D3) 47.7 ng/mL (30.0-100.0)
[2020-05-22 10:42] LABS: Neutrophils Absolute Manual 4095 /uL (3000-5900); RBC Morphology Normal Morphology; Total Cells Counted 100
[2020-05-23 10:03] LABS: PSA Free % 12.9 % (.); PSA, Total 5.5 ng/mL (0.0-4.0)
== END ==
PROVIDERS: PCP Internal Medicine; Referring Provider Internal Medicine; Visit Provider Internal Medicine
DX: N40.1 Benign prostatic hyperplasia with lower urinary tract symptoms (principal); R97.20 Elevated prostate specific antigen [PSA]; E78.5 Hyperlipidemia, unspecified; R63.4 Abnormal weight loss; D69.6 Thrombocytopenia, unspecified; E55.9 Vitamin D deficiency, unspecified
CPT/HCPCS: 36415; 80053; 80061; 82306; 84153; 84154; 85025

== ENCOUNTER → 2020-06-17 10:48 | Outpatient (CLI) | payer MEDICARE, SELFPAY ==
--- NOTE | 2020-06-17 10:50 | DI.RAD.S_ITS ---
PROCEDURE: XR ANKLE LT MIN 3V INDICATIONS: Left foot and ankle pain TECHNIQUE: 3 views of the ankle were acquired. COMPARISON: None. FINDINGS: Bones: There is a osseous density adjacent to the medial malleolus, which could be secondary to an avulsion fracture. Chronicity uncertain. No fractures or dislocations. Ankle mortise is normally aligned. No suspicious bony lesions. Calcaneal spurring. Soft tissues: Trace tibiotalar joint effusion. Achilles tendon appears normal. Vascular calcifications consistent with atherosclerosis. IMPRESSION: 1. Uncertain chronicity of a small avulsion fracture over the medial malleolus. Lack of soft tissue swelling suggesting old fracture. Recommend correlation with focal pain and tenderness. 2. Calcaneal spurring. 3. Atherosclerosis. Dictated by: Renee Miller M.D. on 06/17/2020 at 11:23 Approved by: Renee Miller M.D. on 06/17/2020 at 11:29
--- NOTE | 2020-06-17 10:50 | DI.RAD.S_ITS ---
PROCEDURE: XR FOOT LT MIN 3V INDICATIONS: Left foot and ankle pain TECHNIQUE: 3 views of the foot were acquired. COMPARISON: [facility], CR, XR ANKLE LT MIN 3V, 06/17/2020, 10:51. FINDINGS: Bones: No fractures or dislocations. No suspicious bony lesions. Soft tissues: No tibiotalar joint effusion. Achilles tendon appears normal. Vascular calcifications consistent with atherosclerosis. IMPRESSION: No acute osseous abnormalities. Dictated by: Renee Miller M.D. on 06/17/2020 at 11:29 Approved by: Renee Miller M.D. on 06/17/2020 at 11:30
== END ==
PROVIDERS: Family Provider Internal Medicine; PCP Internal Medicine; Referring Provider Physician Assistant; Visit Provider Physician Assistant
DX: S82.52XA Displaced fracture of medial malleolus of left tibia, initial encounter for closed fracture (principal); M25.572 Pain in left ankle and joints of left foot; M79.672 Pain in left foot; I70.202 Unspecified atherosclerosis of native arteries of extremities, left leg; M77.32 Calcaneal spur, left foot
CPT/HCPCS: 73610; 73630

== ENCOUNTER → 2020-07-06 14:19 | Outpatient (CLI) | payer MEDICARE, SELFPAY ==
[2020-07-06] MEDS: COVID-19 VACC #1, MRNA(MOD) 100 MCG/0.5 ML VIAL IM (14:26)
== END ==
PROVIDERS: Family Provider Internal Medicine; PCP Internal Medicine; Visit Provider Internal Medicine
DX: Z23 Encounter for immunization (principal)
CPT/HCPCS: 0011A; 91301

== ENCOUNTER 2020-07-12 09:30 | Outpatient (RCR) | payer MEDICARE, SELFPAY ==
--- NOTE | 2020-06-13 18:11 | ST.OPIE ---
Addendum entered and electronically signed by Elissa Quiles 06/13/20 18:15: Referring Physician: Deidra Lemus Original Note: Visit Care Team Role Provider Type Deidra Lemus MD Family Provider Non-Staff Primary Care Provider Specialty: Internal Medicine Address: [address] [place] [address], [id number] Email: [email or web address] Humberto Garrison MD Attending Provider Non-Staff Referring Provider Specialty: Internal Medicine Address: [address] [place] [address], [id number] Fax: Email: Speech-Language Pathology Initial Evaluation ELECTRONICS INSPECTOR Voice Resonance Evaluation Start: 06/12/20 09:30 Freq: Status: Active Protocol: Document 06/12/20 09:32 MARTINA (Rec: 06/12/20 10:30 MARTINA [id number]) Voice and Resonance Assessment Session Time Visit Start Time 09:30 Visit Stop Time 10:30 Total Visit Minutes 60 Visit Information Visit Number Initial Evaluation Plan of Care Dates 06/12/20 - 09/10/20 Insurance Information Medicare Next Note Type Next Note Type Treatment Note Referral Referring Physician Dr. 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 Medical notes indicate mild hypohonia. Symptoms began in 04/2015 with onset of resting tremor in RUE, extending by to bradykinesia and tremor in RUE. The pt completed LSVT-Big therapy at this clinic in October 2017 with recommendation at that time to participate in LSVT-Loud therapy. He reported that treatment for other medical conditions, including an unexplained 10-lb weight loss over the summer, took priority until now. He is here today to initiate LSVT-Loud therapy. The pt reported always having had a soft voice but says his complains that he is now noticeably softer, and he feels his speech is becoming more rapid, which further decreases its clarity. He makes efforts to speak slowly and enunciate well, but these behaviors are not habitual. He has also recently noticed increased difficulty swallowing pills. 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 Goals are to speak, without great effort , loudly enough for others to hear him, and to strengthen muscles to improve communication and swallowing. - Laryngeal Performance Voice Handicap Index VHI Comments Form sent home with pt to complete and return at next visit. CAPE-V Overall Severity 58% Mod-Severe Roughness 26% Mild-Mod Breathiness 53% Mod-Severe Strain 9% Mild Pitch 8% Mildly monotone Loudness 55% Mod-Severe (reduced) Normal Resonance? Yes Maximum Phonation Time MPT Norms: Women (15-25) Men (25-35) Loudness (50-60 dB); Speaking Rate: Oral Reading of Sentences (190 Words Per Minute); Oral Reading of Paragraphs (160-170 WPM); Speaking Rate in Conversation (150-250 WPM) Maximum Phonation Time 17s (63 dB) Maximum Phonation Time Adequate for Speech Maximum Phonation Time Comments 14s at increased loudness (69 dB) Jitter/Shimmer Norms: Jitter (Less than or equal to 1.040% - Frequency) Norms: Shimmer (Less than or equal to 3.810% - Amplitude) Jitter 0.40% WNL Shimmer 3.47% WNL Pitch [place] Pitch [place] WNL Pitch [place] Comments 97-379 Hz. Avg loudness in scale descension 64 dB; ascension 70 dB. Breath Support Breath Support Conversation Comment WNL for duration of speech on single breath Speaks on Room Air Yes Resonance Nasal Resonance Normal Oral Resonance Normal Therapeutic Techniques Therapy Tactics Breath Support,Increase Loudness Other Tactics Mildly clearer voice, reduced MPT Findings Findings Moderate Impairment Voice/Resonance Assessment Assessment The pt presents with moderate dysphonia characterized by moderate-severe breathiness and reduced loudness, mild roughness and strain. Mildly monotone pitch perceived in conversation; volitional pitch range is WNL. The pt is an excellent candidate for LSVT- Loud treatment. He successfully completed LSVT- Big within the last 3 yrs, and he expresses great motivation and enthusiasm for participating voice therapy. 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 Prognosis Rehabilitation Potential Excellent - Recommendations Treatment Recommended Yes Treatment Frequency/Duration 16 visits over 5 wks Therapy Recommendations LSVT-Loud protocol Short Term Goals 1. Pt will sustain phonation for 20 seconds with good quality voice at avg 75 dB to increase breath support for speech and vocal quality. 2. Pt will produce pitch range WFL with good quality voice at avg 72 dB to increase prosody in speech and improve vocal quality. 3. Pt will read functional phrases with good quality voice at avg 70 dB to improve/ maintain speech intelligibility and promote carryover of good voicing in functional communication opportunities. 4. Pt will produce structured speech tasks increasing in length and complexity over course of treatment with good voicing at normal conversational levels (65-75 dB) to increase endurance of good quality voice and breath support for functional conversation opportunities. Snf Goals 1. The pt will perform structured voice tasks (e.g., sustained phonation, pitch range, reading tasks) with voicing, including loudness levels, WNL to increase speech intelligibility and good quality voice. 2. The pt will produce spontaneous conversation with multiple conversation partners and in a variety of environments with loudness levels and vocal quality WNL in 80% of opportunities to increase speech intelligibility and maintain communicative independence and quality of life. 3. The pt will demonstrate independence with HEP to promote carryover of tx results to functional conversation tasks and maintain speech intelligibility and good quality voice in presence of a progressive disease. Patient/Caregiver Education Patient/Family Education Described results of evaluation,Patient Understanding Vocally Abusive Behavior Behavior Rating Alcohol Consumption 1 beer daily [place] Talking Infrequently Arguing (peers/siblings/other) Infrequently Athletic Activity Yelling Never Mouth Breathing Frequently Caffeine Use Daily Calling from Distance Infrequently Cheerleading Participation Never Coughing/Sneezing Loudly Frequently Crying Never Use of Dairy Products Frequently Environmental Irritant Exposure Infrequently Use of Inhalants Never Laughing Hard/Abusively Never Singing Abusively Never Participation In Plays Never Smoking Never Excessive Talking Infrequently Making Animal /Toy Noises Never Yelling/Screaming Never
--- NOTE | 2020-06-21 11:55 | ST.OPTN ---
Visit Care Team Role Provider Type Deidra Lemus MD Family Provider Non-Staff Primary Care Provider Address: [address], [address] Humberto Garrison MD Attending Provider Non-Staff Referring Provider Address: [address] [place], [address] Fax: FISHER TROLL LINE Treatment Note FISHER TROLL LINE Treatment Note Start: 06/12/20 09:30 Freq: Status: Active Protocol: Document 06/18/20 18:29 MARTINA (Rec: 06/19/20 18:29 MARTINA [id number]) Speech Pathology Treatment Note Session Time Visit Start Time 09:30 Visit Stop Time 10:30 Total Visit Minutes 60 Visit Information Visit Number / (including evaluation) Plan of Care Dates 06/12/20 - 09/10/20 Insurance Information Medicare Setting Treatment Setting Outpatient Care Visit Type Note Type Treatment Note Next Note Type Next Note Type Treatment Note General Information General Information Pt is a 74-yr-old male with 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 Medical notes indicate mild hypohonia. Symptoms began in 04/2015 with onset of resting tremor in RUE, extending by to bradykinesia and tremor in RUE. The pt completed LSVT-Big therapy at this clinic in October 2017 with recommendation at that time to participate in LSVT-Loud therapy. He reported that treatment for other medical conditions, including an unexplained 10-lb weight loss over the summer, took priority until now. He is here today to initiate LSVT-Loud therapy. The pt reported always having had a soft voice but says his complains that he is now noticably softer, and he feels his speech is becoming more rapid, which further decreases its clarity. He makes efforts to speak slowly and enunciate well, but these behaviors are not habitual. He has also recently noticed increased difficulty swallowing pills. 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 Pt's hobbies includes birdwatching, hiking, biking, and opera. Subjective Observations/Patient Presentation The pt arrived on time. No new complaints. Chief Complaint(s) Voice Additional Areas of Concern Swallow Rehab Expectation/Goals: Patient Goals To produce voice WNL with minimal effort Patient Knowledge/Awareness of FISHER TROLL LINE Role Excellent in Treatment Objective Short Term Goals 1. Pt will sustain phonation for 20 seconds with good quality voice at avg 75 dB to increase breath support for speech and vocal quality. 2. Pt will produce pitch range WFL with good quality voice at avg 72 dB to increase prosody in speech and improve vocal quality. 3. Pt will read functional phrases with good quality voice at avg 70 dB to improve/ maintain speech intelligibility and promote carryover of good voicing in functional communication opportunities. 4. Pt will produce structured speech tasks increasing in length and complexity over course of treatment with good voicing at normal conversational levels (65-75 dB) to increase endurance of good quality voice and breath support for functional conversation opportunities. Senior Care Goals 1. The pt will perform structured voice tasks (e.g., sustained phonation, pitch range, reading tasks) with voicing, including loudness levels, WNL to increase speech intelligibility and good quality voice. 2. The pt will produce spontaneous conversation with multiple conversation partners and in a variety of environments with loudness levels and vocal quality WNL in 80% of opportunities to increase speech intelligibility and maintain communicative independence and quality of life. 3. The pt will demonstrate independence with HEP to promote carryover of tx results to functional conversation tasks and maintain speech intelligibility and good quality voice in presence of a progressive disease. Treatment Activities Education provided RE LSVT tx/ HEP tasks, breath support for voice and speech, laryngeal relaxation for optimal vocal quality, and answers to pt questions. The pt completed the following LSVT-Loud tasks: MPT = 20s; Avg loudness: 72 dB Pitch Range: 97-415 Hz; Avg loudness of highs, 72 dB; lows not instrumentally measured. Reading of Functional Phrases: Avg loudness, 70.3 dB Conversation: Avg loudness, 64 .7 independently; increased to 72 dB w/ verbal prompts. Pt identified intended carryover assignment. Assessment Patient Response to Treatment Good Rehab Potential Excellent Impairments Identified Parkinson's Disease,Speech Intelligibility,Vocal Quality Additional Impairments Identified Pt reports occ minimal difficulty with swallow Progress Towards Goals Good Progress Assessment of Overall Progress Improving Assessment of Improvement The pt demonstrated ability to perform all tx tasks and was responsive to prompting and feedback. He verbalized understanding of all education and asked good related questions. Pt appears to be highly motivated to participate in therapy. Reviewed with Patient Goals,Progress Being Made,Home Exercise Program Patient/Caregiver Understanding Excellent Plan Treatment Emphasis Next Session Continue LSVT-Loud protocol at word/phrases level Therapeutic Contents Client Education,Home Exercise Program,Intelligibility,Voice Training Provided Patient/Caregiver Instruction Home Exercise Program,Plan of Care,Questions/Concerns Therapy Recommendations Continue with Current Program
--- NOTE | 2020-06-21 12:01 | ST.OPTN ---
Addendum entered and electronically signed by Elissa Quiles 06/21/20 12:11: Visit Number: 08/28 (including evaluation) Original Note: Addendum entered and electronically signed by Elissa Quiles 06/21/20 12:07: Conversation: Avg loudness, 67.75 db w/ mod verbal prompts. Original Note: Visit Care Team Role Provider Type Deidra Lemus MD Family Provider Non-Staff Primary Care Provider Address: [address] [place] [address], [id number] Humberto Garrison MD Attending Provider Non-Staff Referring Provider Address: [address] [place] [address], [phone] Fax: DJANGO DEVELOPER Treatment Note DJANGO DEVELOPER Treatment Note Start: 06/12/20 09:30 Freq: Status: Active Protocol: Document 06/19/20 18:29 MARTINA (Rec: 06/19/20 18:29 MARTINA [id number]) Speech Pathology Treatment Note Session Time Visit Start Time 09:30 Visit Stop Time 10:30 Total Visit Minutes 60 Visit Information Visit Number 07/31 (including evaluation) Plan of Care Dates 06/12/20 - 09/10/20 Insurance Information Medicare Setting Treatment Setting Outpatient Care Visit Type Note Type Treatment Note Next Note Type Next Note Type Treatment Note General Information General Information Pt is a 74-yr-old male with 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 Medical notes indicate mild hypohonia. Symptoms began in 04/2015 with onset of resting tremor in RUE, extending by to bradykinesia and tremor in RUE. The pt completed LSVT-Big therapy at this clinic in October 2017 with recommendation at that time to participate in LSVT-Loud therapy. He reported that treatment for other medical conditions, including an unexplained 10-lb weight loss over the summer, took priority until now. He is here today to initiate LSVT-Loud therapy. The pt reported always having had a soft voice but says his complains that he is now noticably softer, and he feels his speech is becoming more rapid, which further decreases its clarity. He makes efforts to speak slowly and enunciate well, but these behaviors are not habitual. He has also recently noticed increased difficulty swallowing pills. 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 Pt's hobbies includes birdwatching, hiking, biking, and opera. Subjective Observations/Patient Presentation The pt arrived on time. No new complaints. Chief Complaint(s) Voice Additional Areas of Concern Swallow Rehab Expectation/Goals: Patient Goals To produce voice WNL with minimal effort Patient Knowledge/Awareness of DJANGO DEVELOPER Role Excellent in Treatment Objective Short Term Goals 1. Pt will sustain phonation for 20 seconds with good quality voice at avg 75 dB to increase breath support for speech and vocal quality. 2. Pt will produce pitch range WFL with good quality voice at avg 72 dB to increase prosody in speech and improve vocal quality. 3. Pt will read functional phrases with good quality voice at avg 70 dB to improve/ maintain speech intelligibility and promote carryover of good voicing in functional communication opportunities. 4. Pt will produce structured speech tasks increasing in length and complexity over course of treatment with good voicing at normal conversational levels (65-75 dB) to increase endurance of good quality voice and breath support for functional conversation opportunities. Fdc Goals 1. The pt will perform structured voice tasks (e.g., sustained phonation, pitch range, reading tasks) with voicing, including loudness levels, WNL to increase speech intelligibility and good quality voice. 2. The pt will produce spontaneous conversation with multiple conversation partners and in a variety of environments with loudness levels and vocal quality WNL in 80% of opportunities to increase speech intelligibility and maintain communicative independence and quality of life. 3. The pt will demonstrate independence with HEP to promote carryover of tx results to functional conversation tasks and maintain speech intelligibility and good quality voice in presence of a progressive disease. Treatment Activities Continued education provided RE LSVT tx/HEP tasks, breath support for voice and speech, laryngeal relaxation for optimal vocal quality, and answers to pt questions. The pt completed the following LSVT-Loud tasks: MPT = 14.3 sec; Avg loudness: 76.3 dB Pitch Range: 95-407 Hz; Avg loudness of highs, 77 dB; lows, 75.5 dB Reading of Functional Phrases: Avg loudness, 70.4 dB Reading of Words/Phrases: Avg loudness, 70.4 dB Conversation: Avg loudness, 76 .3 w/ mod verbal prompts. Pt identified intended carryover assignment. Assessment Patient Response to Treatment Excellent Rehab Potential Excellent Impairments Identified Parkinson's Disease,Speech Intelligibility,Vocal Quality Additional Impairments Identified Pt reports occ minimal difficulty with swallow Progress Towards Goals Good Progress Assessment of Overall Progress Improving Assessment of Improvement Improved loudness with mildly decreased duration during sustained phonation, which is typical at start of LSVT-Loud tx. Increased loudness across all tasks with mod verbal cues . Pt was highly interested in and benefited from dB reader data used as biofeedback. Reviewed with Patient Goals,Progress Being Made,Home Exercise Program Patient/Caregiver Understanding Excellent Plan Comment Total of 16 sessions Frequency of Treatment Once a Week Treatment Emphasis Next Session Continue LSVT-Loud protocol at word/phrases level Therapeutic Contents Client Education,Home Exercise Program,Intelligibility,Voice Training Provided Patient/Caregiver Instruction Home Exercise Program,Plan of Care,Questions/Concerns Therapy Recommendations Continue with Current Program
--- NOTE | 2020-06-21 12:07 | ST.OPTN ---
Addendum entered and electronically signed by Elissa Quiles 06/21/20 12:12: Visit Number: 09/28 (including evaluation) Original Note: Visit Care Team Role Provider Type Deidra Lemus MD Family Provider Non-Staff Primary Care Provider Address: [address], [address] Humberto Garrison MD Attending Provider Non-Staff Referring Provider Address: [address] [place] [address], [phone] Fax: INSTRUMENT REPAIR SPECIALIST Treatment Note INSTRUMENT REPAIR SPECIALIST Treatment Note Start: 06/12/20 09:30 Freq: Status: Active Protocol: Document 06/20/20 12:01 MARTINA (Rec: 06/21/20 12:07 MARTINA [id number]) Speech Pathology Treatment Note Session Time Visit Start Time 09:30 Visit Stop Time 10:30 Total Visit Minutes 60 Visit Information Visit Number 07/31 (including evaluation) Plan of Care Dates 06/12/20 - 09/10/20 Insurance Information Medicare Setting Treatment Setting Outpatient Care Visit Type Note Type Treatment Note Next Note Type Next Note Type Treatment Note General Information General Information Pt is a 74-yr-old male with 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 Medical notes indicate mild hypohonia. Symptoms began in 04/2015 with onset of resting tremor in RUE, extending by to bradykinesia and tremor in RUE. The pt completed LSVT-Big therapy at this clinic in October 2017 with recommendation at that time to participate in LSVT-Loud therapy. He reported that treatment for other medical conditions, including an unexplained 10-lb weight loss over the summer, took priority until now. He is here today to initiate LSVT-Loud therapy. The pt reported always having had a soft voice but says his complains that he is now noticably softer, and he feels his speech is becoming more rapid, which further decreases its clarity. He makes efforts to speak slowly and enunciate well, but these behaviors are not habitual. He has also recently noticed increased difficulty swallowing pills. 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 Pt's hobbies includes birdwatching, hiking, biking, and opera. Subjective Observations/Patient Presentation The pt arrived on time. No new complaints. Completing HEP as prescribed. Chief Complaint(s) Voice Additional Areas of Concern Swallow Rehab Expectation/Goals: Patient Goals To produce voice WNL with minimal effort Patient Knowledge/Awareness of INSTRUMENT REPAIR SPECIALIST Role Excellent in Treatment Patient/Caregiver Compliance with Home Excellent Exercise Program Objective Short Term Goals 1. Pt will sustain phonation for 20 seconds with good quality voice at avg 75 dB to increase breath support for speech and vocal quality. 2. Pt will produce pitch range WFL with good quality voice at avg 72 dB to increase prosody in speech and improve vocal quality. 3. Pt will read functional phrases with good quality voice at avg 70 dB to improve/ maintain speech intelligibility and promote carryover of good voicing in functional communication opportunities. 4. Pt will produce structured speech tasks increasing in length and complexity over course of treatment with good voicing at normal conversational levels (65-75 dB) to increase endurance of good quality voice and breath support for functional conversation opportunities. Insole Lip Turner Goals 1. The pt will perform structured voice tasks (e.g., sustained phonation, pitch range, reading tasks) with voicing, including loudness levels, WNL to increase speech intelligibility and good quality voice. 2. The pt will produce spontaneous conversation with multiple conversation partners and in a variety of environments with loudness levels and vocal quality WNL in 80% of opportunities to increase speech intelligibility and maintain communicative independence and quality of life. 3. The pt will demonstrate independence with HEP to promote carryover of tx results to functional conversation tasks and maintain speech intelligibility and good quality voice in presence of a progressive disease. Treatment Activities The pt completed the following LSVT-Loud tasks with skilled feedback and encouragement provided throughout: MPT = 18.1 sec; Avg loudness: 76 dB Pitch Range: 91-437 Hz; Avg loudness of highs, 76.5 dB; lows, 76 dB Reading of Functional Phrases: Avg loudness, 73.3 dB Reading of Words/Phrases: Avg loudness of w/ph in isolation, 76 dB; with pt commentary added, 70 dB. Conversation: Avg loudness, 70 .6 w/ mod verbal prompts. Pt identified intended carryover assignment. Assessment Patient Response to Treatment Excellent Rehab Potential Excellent Impairments Identified Parkinson's Disease,Speech Intelligibility,Vocal Quality Additional Impairments Identified Pt reports occ minimal difficulty with swallow Progress Towards Goals Good Progress Assessment of Overall Progress Improving Assessment of Improvement Pt is making excellent progress toward goals and beginning to self-monitor and correct loudness in spontaneous speech. Reviewed with Patient Goals,Progress Being Made,Home Exercise Program Patient/Caregiver Understanding Excellent Plan Comment Total of 16 sessions Frequency of Treatment Once a Week Treatment Emphasis Next Session Continue LSVT-Loud protocol at word/phrases level Therapeutic Contents Client Education,Home Exercise Program,Intelligibility,Voice Training Provided Patient/Caregiver Instruction Home Exercise Program,Plan of Care,Questions/Concerns Therapy Recommendations Continue with Current Program
--- NOTE | 2020-06-21 12:15 | ST.OPTN ---
Addendum entered and electronically signed by Elissa Quiles 06/27/20 11:22: Visit Number 11/28 (including evaluation) Original Note: Visit Care Team Role Provider Type Deidra Lemus MD Family Provider Non-Staff Primary Care Provider Address: [address] [place] [address], [phone] Humberto Garrison MD Attending Provider Non-Staff Referring Provider Address: [address] [place] [address], [phone] Fax: MOBILE APPLICATION DEVELOPER Treatment Note MOBILE APPLICATION DEVELOPER Treatment Note Start: 06/12/20 09:30 Freq: Status: Active Protocol: Document 06/21/20 12:10 MARTINA (Rec: 06/21/20 12:15 MARTINA [id number]) Speech Pathology Treatment Note Session Time Visit Start Time 09:30 Visit Stop Time 10:30 Total Visit Minutes 60 Visit Information Visit Number 10/28 (including evaluation) Plan of Care Dates 06/12/20 - 09/10/20 Insurance Information Medicare Setting Treatment Setting Outpatient Care Visit Type Note Type Treatment Note Next Note Type Next Note Type Treatment Note General Information General Information Pt is a 74-yr-old male with 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 Medical notes indicate mild hypohonia. Symptoms began in 04/2015 with onset of resting tremor in RUE, extending by to bradykinesia and tremor in RUE. The pt completed LSVT-Big therapy at this clinic in October 2017 with recommendation at that time to participate in LSVT-Loud therapy. He reported that treatment for other medical conditions, including an unexplained 10-lb weight loss over the summer, took priority until now. He is here today to initiate LSVT-Loud therapy. The pt reported always having had a soft voice but says his complains that he is now noticably softer, and he feels his speech is becoming more rapid, which further decreases its clarity. He makes efforts to speak slowly and enunciate well, but these behaviors are not habitual. He has also recently noticed increased difficulty swallowing pills. 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 Pt's hobbies includes birdwatching, hiking, biking, and opera. Subjective Observations/Patient Presentation The pt arrived on time. No new complaints. Completing HEP as prescribed. Chief Complaint(s) Voice Additional Areas of Concern Swallow Rehab Expectation/Goals: Patient Goals To produce voice WNL with minimal effort Patient Knowledge/Awareness of MOBILE APPLICATION DEVELOPER Role Excellent in Treatment Patient/Caregiver Compliance with Home Excellent Exercise Program Objective Short Term Goals 1. Pt will sustain phonation for 20 seconds with good quality voice at avg 75 dB to increase breath support for speech and vocal quality. 2. Pt will produce pitch range WFL with good quality voice at avg 72 dB to increase prosody in speech and improve vocal quality. 3. Pt will read functional phrases with good quality voice at avg 70 dB to improve/ maintain speech intelligibility and promote carryover of good voicing in functional communication opportunities. 4. Pt will produce structured speech tasks increasing in length and complexity over course of treatment with good voicing at normal conversational levels (65-75 dB) to increase endurance of good quality voice and breath support for functional conversation opportunities. Intermediate Goals 1. The pt will perform structured voice tasks (e.g., sustained phonation, pitch range, reading tasks) with voicing, including loudness levels, WNL to increase speech intelligibility and good quality voice. 2. The pt will produce spontaneous conversation with multiple conversation partners and in a variety of environments with loudness levels and vocal quality WNL in 80% of opportunities to increase speech intelligibility and maintain communicative independence and quality of life. 3. The pt will demonstrate independence with HEP to promote carryover of tx results to functional conversation tasks and maintain speech intelligibility and good quality voice in presence of a progressive disease. Treatment Activities The pt completed the following LSVT-Loud tasks with skilled feedback and encouragement provided throughout: MPT = 22.4 sec; Avg loudness: 78 dB Pitch Range: 101-446 Hz; Avg loudness of highs, 76 dB; lows, 77.9 dB Reading of Functional Phrases: Avg loudness, 73.5 dB Reading of Words/Phrases: Avg loudness of w/ph with pt commentary added, 70.3 dB. Conversation: Avg loudness, 67 w/ min verbal prompts. Created visual prompts for home use to promote carryover of loudness in functional setting. Assessment Patient Response to Treatment Excellent Rehab Potential Excellent Impairments Identified Parkinson's Disease,Speech Intelligibility,Vocal Quality Additional Impairments Identified Pt reports occ minimal difficulty with swallow Progress Towards Goals Good Progress Assessment of Overall Progress Improving Assessment of Improvement Pt is making excellent progress toward goals and continuing to exhibit initial stages of self-monitoring and correcting loudness in spontaneous speech. Benefits from visual reminders and dB recording for biofeedback. Reviewed with Patient Goals,Progress Being Made,Home Exercise Program Patient/Caregiver Understanding Excellent Plan Comment Total of 16 sessions Frequency of Treatment Once a Week Treatment Emphasis Next Session Continue LSVT-Loud protocol at word/phrases level Therapeutic Contents Client Education,Home Exercise Program,Intelligibility,Voice Training Provided Patient/Caregiver Instruction Home Exercise Program,Plan of Care,Questions/Concerns Therapy Recommendations Continue with Current Program
--- NOTE | 2020-06-27 11:21 | ST.OPTN ---
Addendum entered and electronically signed by Elissa Quiles 06/27/20 11:22: Visit Number 12/28 (including evaluation) Original Note: Visit Care Team Role Provider Type Deidra Lemus MD Family Provider Non-Staff Primary Care Provider Address: [address] [place] [address], [id number] Humberto Garrison MD Attending Provider Non-Staff Referring Provider Address: [address] [place] [address], [id number] Fax: ACCESS REP Treatment Note ACCESS REP Treatment Note Start: 06/12/20 09:30 Freq: Status: Active Protocol: Document 06/25/20 11:16 MARTINA (Rec: 06/27/20 11:21 MARTINA [id number]) Speech Pathology Treatment Note Session Time Visit Start Time 09:30 Visit Stop Time 10:30 Total Visit Minutes 60 Visit Information Visit Number 10/28 (including evaluation) Plan of Care Dates 06/12/20 - 09/10/20 Insurance Information Medicare Setting Treatment Setting Outpatient Care Visit Type Note Type Treatment Note Next Note Type Next Note Type Treatment Note General Information General Information Pt is a 74-yr-old male with 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 Medical notes indicate mild hypohonia. Symptoms began in 04/2015 with onset of resting tremor in RUE, extending by to bradykinesia and tremor in RUE. The pt completed LSVT-Big therapy at this clinic in October 2017 with recommendation at that time to participate in LSVT-Loud therapy. He reported that treatment for other medical conditions, including an unexplained 10-lb weight loss over the summer, took priority until now. He is here today to initiate LSVT-Loud therapy. The pt reported always having had a soft voice but says his complains that he is now noticably softer, and he feels his speech is becoming more rapid, which further decreases its clarity. He makes efforts to speak slowly and enunciate well, but these behaviors are not habitual. He has also recently noticed increased difficulty swallowing pills. 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 Pt's hobbies includes birdwatching, hiking, biking, and opera. Subjective Observations/Patient Presentation The pt arrived on time. No new complaints. Completing HEP as prescribed. Chief Complaint(s) Voice Additional Areas of Concern Swallow Rehab Expectation/Goals: Patient Goals To produce voice WNL with minimal effort Patient Knowledge/Awareness of ACCESS REP Role Excellent in Treatment Patient/Caregiver Compliance with Home Excellent Exercise Program Objective Short Term Goals 1. Pt will sustain phonation for 20 seconds with good quality voice at avg 75 dB to increase breath support for speech and vocal quality. 2. Pt will produce pitch range WFL with good quality voice at avg 72 dB to increase prosody in speech and improve vocal quality. 3. Pt will read functional phrases with good quality voice at avg 70 dB to improve/ maintain speech intelligibility and promote carryover of good voicing in functional communication opportunities. 4. Pt will produce structured speech tasks increasing in length and complexity over course of treatment with good voicing at normal conversational levels (65-75 dB) to increase endurance of good quality voice and breath support for functional conversation opportunities. Intermediate Goals 1. The pt will perform structured voice tasks (e.g., sustained phonation, pitch range, reading tasks) with voicing, including loudness levels, WNL to increase speech intelligibility and good quality voice. 2. The pt will produce spontaneous conversation with multiple conversation partners and in a variety of environments with loudness levels and vocal quality WNL in 80% of opportunities to increase speech intelligibility and maintain communicative independence and quality of life. 3. The pt will demonstrate independence with HEP to promote carryover of tx results to functional conversation tasks and maintain speech intelligibility and good quality voice in presence of a progressive disease. Treatment Activities The pt completed the following LSVT-Loud tasks with skilled feedback and encouragement provided throughout: MPT = 16.1 sec; Avg loudness: 76 dB, improved quality of voice Pitch Range: 102-454 Hz; Avg loudness of highs, 75.8 dB; lows, 76.3 dB Reading of Functional Phrases: Avg loudness, 71 dB Reading of Sentences: Avg loudness of sentences, 74 dB. Conversation: Avg loudness, 69 .5 w/ min verbal prompts. Assessment Patient Response to Treatment Excellent Rehab Potential Excellent Impairments Identified Parkinson's Disease,Speech Intelligibility,Vocal Quality Additional Impairments Identified Pt reports occ minimal difficulty with swallow Progress Towards Goals Good Progress Assessment of Overall Progress Improving Assessment of Improvement Pt is making excellent progress toward goals and increasing self-monitoring and correcting of loudness in spontaneous speech. Benefits from visual reminders and dB recording for biofeedback. Though sustained phonation was decreased in duration, quality of voice is improved and pt able to more consistently sustain target loudness levels, indicating improved control of breath. Reviewed with Patient Goals,Progress Being Made,Home Exercise Program Patient/Caregiver Understanding Excellent Plan Comment Total of 16 sessions Frequency of Treatment Once a Week Treatment Emphasis Next Session Continue LSVT-Loud protocol at sentence Therapeutic Contents Client Education,Home Exercise Program,Intelligibility,Voice Training Provided Patient/Caregiver Instruction Home Exercise Program,Plan of Care,Questions/Concerns Therapy Recommendations Continue with Current Program
--- NOTE | 2020-06-27 11:27 | ST.OPTN ---
Visit Care Team Role Provider Type Deidra Lemus MD Family Provider Non-Staff Primary Care Provider Address: [address], [address] Humberto Garrison MD Attending Provider Non-Staff Referring Provider Address: [address] [place], [address] Fax: GEAR CUTTER Treatment Note GEAR CUTTER Treatment Note Start: 06/12/20 09:30 Freq: Status: Active Protocol: Document 06/26/20 11:21 MARTINA (Rec: 06/27/20 11:27 MARTINA [id number]) Speech Pathology Treatment Note Session Time Visit Start Time 09:30 Visit Stop Time 10:30 Total Visit Minutes 60 Visit Information Visit Number 01/28 (including evaluation) Plan of Care Dates 06/12/20 - 09/10/20 Insurance Information Medicare Setting Treatment Setting Outpatient Care Visit Type Note Type Treatment Note Next Note Type Next Note Type Treatment Note General Information General Information Pt is a 74-yr-old male with 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 Medical notes indicate mild hypohonia. Symptoms began in 04/2015 with onset of resting tremor in RUE, extending by to bradykinesia and tremor in RUE. The pt completed LSVT-Big therapy at this clinic in October 2017 with recommendation at that time to participate in LSVT-Loud therapy. He reported that treatment for other medical conditions, including an unexplained 10-lb weight loss over the summer, took priority until now. He is here today to initiate LSVT-Loud therapy. The pt reported always having had a soft voice but says his complains that he is now noticably softer, and he feels his speech is becoming more rapid, which further decreases its clarity. He makes efforts to speak slowly and enunciate well, but these behaviors are not habitual. He has also recently noticed increased difficulty swallowing pills. 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 Pt's hobbies includes birdwatching, hiking, biking, and opera. Subjective Observations/Patient Presentation The pt arrived on time. No new complaints. Completing HEP as prescribed. Chief Complaint(s) Voice Additional Areas of Concern Swallow Rehab Expectation/Goals: Patient Goals To produce voice WNL with minimal effort Patient Knowledge/Awareness of GEAR CUTTER Role Excellent in Treatment Patient/Caregiver Compliance with Home Excellent Exercise Program Objective Short Term Goals 1. Pt will sustain phonation for 20 seconds with good quality voice at avg 75 dB to increase breath support for speech and vocal quality. 2. Pt will produce pitch range WFL with good quality voice at avg 72 dB to increase prosody in speech and improve vocal quality. 3. Pt will read functional phrases with good quality voice at avg 70 dB to improve/ maintain speech intelligibility and promote carryover of good voicing in functional communication opportunities. 4. Pt will produce structured speech tasks increasing in length and complexity over course of treatment with good voicing at normal conversational levels (65-75 dB) to increase endurance of good quality voice and breath support for functional conversation opportunities. Engraver Ornamental Design Goals 1. The pt will perform structured voice tasks (e.g., sustained phonation, pitch range, reading tasks) with voicing, including loudness levels, WNL to increase speech intelligibility and good quality voice. 2. The pt will produce spontaneous conversation with multiple conversation partners and in a variety of environments with loudness levels and vocal quality WNL in 80% of opportunities to increase speech intelligibility and maintain communicative independence and quality of life. 3. The pt will demonstrate independence with HEP to promote carryover of tx results to functional conversation tasks and maintain speech intelligibility and good quality voice in presence of a progressive disease. Treatment Activities The pt completed the following LSVT-Loud tasks with skilled feedback and encouragement provided throughout: MPT = 16.6 sec; Avg loudness: 80 dB, improved quality of voice; pt verbalized feeling improved vocal quality with increased loudness. Pitch Range: 106-384 Hz; Avg loudness of highs, 80.1 dB; lows, 73 dB Reading of Functional Phrases: Avg loudness, 73 dB Reading of Sentences: Avg loudness of sentences, 73.5 dB . Conversation: Avg loudness, 71 .3 w/ min verbal prompts; increased pt s/c. Assessment Patient Response to Treatment Excellent Rehab Potential Excellent Impairments Identified Parkinson's Disease,Speech Intelligibility,Vocal Quality Additional Impairments Identified Pt reports occ minimal difficulty with swallow Progress Towards Goals Good Progress Assessment of Overall Progress Improving Assessment of Improvement Pt is making excellent progress toward goals and increasing self-monitoring and correcting of loudness in spontaneous speech. Benefits from visual reminders and dB recording for biofeedback. Pt again demonstrated significant improvement of vocal quality with increased loudness, which he expressed being able to feel, indicating good calibration for carryover into functional speaking tasks. Increased loudness and consistency of loudness perceived and measured in reading and conversational tasks. Reviewed with Patient Goals,Progress Being Made,Home Exercise Program Patient/Caregiver Understanding Excellent Plan Comment Total of 16 sessions Frequency of Treatment Once a Week Treatment Emphasis Next Session Continue LSVT-Loud protocol at sentence Therapeutic Contents Client Education,Home Exercise Program,Intelligibility,Voice Training Provided Patient/Caregiver Instruction Home Exercise Program,Plan of Care,Questions/Concerns Therapy Recommendations Continue with Current Program
--- NOTE | 2020-06-27 11:38 | ST.OPTN ---
Visit Care Team Role Provider Type Deidra Lemus MD Family Provider Non-Staff Primary Care Provider Address: [address], [address] Humberto Garrison MD Attending Provider Non-Staff Referring Provider Address: [address] [place], [address] Fax: TICKET COLLECTOR Treatment Note TICKET COLLECTOR Treatment Note Start: 06/12/20 09:30 Freq: Status: Active Protocol: Document 06/27/20 11:28 MARTINA (Rec: 06/27/20 11:38 MARTINA [id number]) Speech Pathology Treatment Note Session Time Visit Start Time 09:30 Visit Stop Time 10:30 Total Visit Minutes 60 Visit Information Visit Number 02/28 (including evaluation) Plan of Care Dates 06/12/20 - 09/10/20 Insurance Information Medicare Setting Treatment Setting Outpatient Care Visit Type Note Type Treatment Note Next Note Type Next Note Type Treatment Note General Information General Information Pt is a 74-yr-old male with 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 Medical notes indicate mild hypohonia. Symptoms began in 04/2015 with onset of resting tremor in RUE, extending by to bradykinesia and tremor in RUE. The pt completed LSVT-Big therapy at this clinic in October 2017 with recommendation at that time to participate in LSVT-Loud therapy. He reported that treatment for other medical conditions, including an unexplained 10-lb weight loss over the summer, took priority until now. He is here today to initiate LSVT-Loud therapy. The pt reported always having had a soft voice but says his complains that he is now noticably softer, and he feels his speech is becoming more rapid, which further decreases its clarity. He makes efforts to speak slowly and enunciate well, but these behaviors are not habitual. He has also recently noticed increased difficulty swallowing pills. 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 Pt's hobbies includes birdwatching, hiking, biking, and opera. Subjective Observations/Patient Presentation The pt arrived on time. No new complaints. Completing HEP as prescribed. With the pt's permission, [facility] Professor Of Management and Mortgage Loan Specialist were present at start of session to take photos to promote the LSVT Loud and Big programs. The pt requested he not be recognizable in photos, and he was assured he would not be. Additionally, TICKET COLLECTOR requested previewing of photos prior to publishing to ensure. The pt was agreeable to this. Chief Complaint(s) Voice Additional Areas of Concern Swallow Rehab Expectation/Goals: Patient Goals To produce voice WNL with minimal effort Patient Knowledge/Awareness of TICKET COLLECTOR Role Excellent in Treatment Patient/Caregiver Compliance with Home Excellent Exercise Program Objective Short Term Goals 1. Pt will sustain phonation for 20 seconds with good quality voice at avg 75 dB to increase breath support for speech and vocal quality. 2. Pt will produce pitch range WFL with good quality voice at avg 72 dB to increase prosody in speech and improve vocal quality. 3. Pt will read functional phrases with good quality voice at avg 70 dB to improve/ maintain speech intelligibility and promote carryover of good voicing in functional communication opportunities. 4. Pt will produce structured speech tasks increasing in length and complexity over course of treatment with good voicing at normal conversational levels (65-75 dB) to increase endurance of good quality voice and breath support for functional conversation opportunities. Custodial Goals 1. The pt will perform structured voice tasks (e.g., sustained phonation, pitch range, reading tasks) with voicing, including loudness levels, WNL to increase speech intelligibility and good quality voice. 2. The pt will produce spontaneous conversation with multiple conversation partners and in a variety of environments with loudness levels and vocal quality WNL in 80% of opportunities to increase speech intelligibility and maintain communicative independence and quality of life. 3. The pt will demonstrate independence with HEP to promote carryover of tx results to functional conversation tasks and maintain speech intelligibility and good quality voice in presence of a progressive disease. Treatment Activities The pt completed the following LSVT-Loud tasks with skilled feedback and encouragement provided throughout: MPT = 14 sec; Avg loudness: 79 .4 dB, improved quality of voice; pt verbalized feeling improved vocal quality with increased loudness. Pitch Range: 113-390 Hz; Avg loudness of highs, 79.3 dB; lows, 79.5 dB Reading of Functional Phrases: Avg loudness, 72.5 dB Reading of Sentences: Avg loudness of sentences, 71 dB. Conversation: Avg loudness, 72 independently. Assessment Patient Response to Treatment Excellent Rehab Potential Excellent Impairments Identified Parkinson's Disease,Speech Intelligibility,Vocal Quality Additional Impairments Identified Pt reports occ minimal difficulty with swallow Progress Towards Goals Good Progress Assessment of Overall Progress Improving Assessment of Improvement Pt is making excellent progress toward goals and demonstrating consistent self- monitoring and correcting of loudness in spontaneous speech . Benefits from visual reminders and dB recording for biofeedback. Pt again demonstrated significant improvement of vocal quality with increased loudness, which he expressed being able to feel, indicating good calibration for carryover into functional speaking tasks. Reviewed with Patient Goals,Progress Being Made,Home Exercise Program Patient/Caregiver Understanding Excellent Plan Comment Total of 16 sessions Frequency of Treatment Once a Week Treatment Emphasis Next Session Continue LSVT-Loud protocol at sentence Therapeutic Contents Client Education,Home Exercise Program,Intelligibility,Voice Training Provided Patient/Caregiver Instruction Home Exercise Program,Plan of Care,Questions/Concerns Therapy Recommendations Continue with Current Program
--- NOTE | 2020-06-28 11:44 | ST.OPTN ---
Visit Care Team Role Provider Type Deidra Lemus MD Family Provider Non-Staff Primary Care Provider Address: [address], [address] Humberto Garrison MD Attending Provider Non-Staff Referring Provider Address: [address] [place], [address] Fax: FIRE [employer]PARAT[employer] SPRINKLER INSPECTOR Treatment Note [employer] SPRINKLER INSPECTOR Treatment Note Start: 06/12/20 09:30 Freq: Status: Active Protocol: Document 06/28/20 11:23 MARTINA (Rec: 06/28/20 11:44 MARTINA [id number]) Speech Pathology Treatment Note Session Time Visit Start Time 09:30 Visit Stop Time 10:30 Total Visit Minutes 60 Visit Information Visit Number 03/30 (including evaluation) Plan of Care Dates 06/12/20 - 09/10/20 Insurance Information Medicare Setting Treatment Setting Outpatient Care Visit Type Note Type Progress Note Next Note Type Next Note Type Treatment Note General Information General Information Pt is a 74-yr-old male with 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 Medical notes indicate mild hypohonia. Symptoms began in 04/2015 with onset of resting tremor in RUE, extending by to bradykinesia and tremor in RUE. The pt completed LSVT-Big therapy at this clinic in October 2017 with recommendation at that time to participate in LSVT-Loud therapy. He reported that treatment for other medical conditions, including an unexplained 10-lb weight loss over the summer, took priority until now. He is here today to initiate LSVT-Loud therapy. The pt reported always having had a soft voice but says his complains that he is now noticably softer, and he feels his speech is becoming more rapid, which further decreases its clarity. He makes efforts to speak slowly and enunciate well, but these behaviors are not habitual. He has also recently noticed increased difficulty swallowing pills. 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 Pt's hobbies includes birdwatching, hiking, biking, and opera. Subjective Observations/Patient Presentation The pt arrived on time. No new complaints. Completing HEP as prescribed. With the pt's permission, [facility] Supervisor Orchard and Sexologist were present at start of session to take photos to promote the LSVT Loud and Big programs. The pt requested he not be recognizable in photos, and he was assured he would not be. Additionally, FIRE APPARATUS SPRINKLER INSPECTOR requested previewing of photos prior to publishing to ensure. The pt was agreeable to this. Chief Complaint(s) Voice Additional Areas of Concern Swallow Rehab Expectation/Goals: Patient Goals To produce voice WNL with minimal effort Patient Knowledge/Awareness of FIRE APPARATUS SPRINKLER INSPECTOR Role Excellent in Treatment Patient/Caregiver Compliance with Home Excellent Exercise Program Objective Short Term Goals 1. Pt will sustain phonation for 20 seconds with good quality voice at avg 75 dB to increase breath support for speech and vocal quality. 2. Pt will produce pitch range WFL with good quality voice at avg 72 dB to increase prosody in speech and improve vocal quality. 3. Pt will read functional phrases with good quality voice at avg 70 dB to improve/ maintain speech intelligibility and promote carryover of good voicing in functional communication opportunities. 4. Pt will produce structured speech tasks increasing in length and complexity over course of treatment with good voicing at normal conversational levels (65-75 dB) to increase endurance of good quality voice and breath support for functional conversation opportunities. Alf Goals 1. The pt will perform structured voice tasks (e.g., sustained phonation, pitch range, reading tasks) with voicing, including loudness levels, WNL to increase speech intelligibility and good quality voice. 2. The pt will produce spontaneous conversation with multiple conversation partners and in a variety of environments with loudness levels and vocal quality WNL in 80% of opportunities to increase speech intelligibility and maintain communicative independence and quality of life. 3. The pt will demonstrate independence with HEP to promote carryover of tx results to functional conversation tasks and maintain speech intelligibility and good quality voice in presence of a progressive disease. Treatment Activities The pt completed the following LSVT-Loud tasks with background noise of 60 dB and skilled feedback and encouragement provided throughout: MPT = 14.1 sec; Avg loudness: 81.9 dB, improved quality of voice; pt verbalized feeling improved vocal quality with increased loudness. Pitch Range: 96-380 Hz; Avg loudness of highs, 80.6 dB; lows, 79.5 dB Reading of Functional Phrases: Avg loudness, 72.5 dB Reading of Sentences: Avg loudness of sentences, 70.5 dB . Conversation: Avg loudness, 72 with min prompts initially fading to independence. During all tasks, the pt produced appropriate and clear articulation of words. When background noise was initially turned on, speech intelligibility was ~90% with occ need for repetition. That improved quickly to 100% intelligibility for the remainder of the session. Assessment Patient Response to Treatment Excellent Rehab Potential Excellent Impairments Identified Parkinson's Disease,Speech Intelligibility,Vocal Quality Additional Impairments Identified Pt reports occ minimal difficulty with swallow Progress Towards Goals Excellent Progress Assessment of Overall Progress Improving Assessment of Improvement Over the course of treatment, the pt has made excellent progress toward goals and is demonstrating increasingly consistent self-monitoring and correcting of loudness in spontaneous speech. He benefits from visual prompt ( Think Loud sign) and dB recording for biofeedback. This week, he has demonstrated significant improvement of vocal quality with increased loudness, which he expresses being able to feel, indicating good calibration for carryover into functional speaking tasks. Additionally, he has been very intentional about improving speech articulation to further improve intelligibility, particularly with his who has some hearing impairment. 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 The pt has been and remains highly motivated to improve communication skills and has been consistently compliant with HEP. Reviewed with Patient Goals,Progress Being Made,Home Exercise Program Patient/Caregiver Understanding Excellent Plan Comment Total of 16 sessions Frequency of Treatment Once a Week Length of Session 60 Minutes Treatment Emphasis Next Session Continue LSVT-Loud protocol at paragraph level Therapeutic Contents Client Education,Home Exercise Program,Intelligibility,Voice Training Provided Patient/Caregiver Instruction Home Exercise Program,Plan of Care,Questions/Concerns Therapy Recommendations Continue with Current Program
--- NOTE | 2020-07-02 14:06 | ST.OPTN ---
Visit Care Team Role Provider Type Deidra Lemus MD Family Provider Non-Staff Primary Care Provider Address: [address], [address] Humberto Garrison MD Attending Provider Non-Staff Referring Provider Address: [address] [place], [address] Fax: TECHNICIANS AND TRADES WORKERS Treatment Note TECHNICIANS AND TRADES WORKERS Treatment Note Start: 06/12/20 09:30 Freq: Status: Active Protocol: Document 07/02/20 14:02 MARTINA (Rec: 07/02/20 14:06 MARTINA [id number]) Speech Pathology Treatment Note Session Time Visit Start Time 09:30 Visit Stop Time 10:30 Total Visit Minutes 60 Visit Information Visit Number 03/30 (including evaluation) Plan of Care Dates 06/12/20 - 09/10/20 Insurance Information Medicare Setting Treatment Setting Outpatient Care Visit Type Note Type Progress Note Next Note Type Next Note Type Treatment Note General Information General Information Pt is a 74-yr-old male with 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 Medical notes indicate mild hypohonia. Symptoms began in 04/2015 with onset of resting tremor in RUE, extending by to bradykinesia and tremor in RUE. The pt completed LSVT-Big therapy at this clinic in October 2017 with recommendation at that time to participate in LSVT-Loud therapy. He reported that treatment for other medical conditions, including an unexplained 10-lb weight loss over the summer, took priority until now. He is here today to initiate LSVT-Loud therapy. The pt reported always having had a soft voice but says his complains that he is now noticably softer, and he feels his speech is becoming more rapid, which further decreases its clarity. He makes efforts to speak slowly and enunciate well, but these behaviors are not habitual. He has also recently noticed increased difficulty swallowing pills. 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 Pt's hobbies includes birdwatching, hiking, biking, and opera. Subjective Observations/Patient Presentation The pt arrived on time. No new complaints. Completing HEP as prescribed. Chief Complaint(s) Voice Additional Areas of Concern Swallow Rehab Expectation/Goals: Patient Goals To produce voice WNL with minimal effort Patient Knowledge/Awareness of TECHNICIANS AND TRADES WORKERS Role Excellent in Treatment Patient/Caregiver Compliance with Home Excellent Exercise Program Objective Short Term Goals 1. Pt will sustain phonation for 20 seconds with good quality voice at avg 75 dB to increase breath support for speech and vocal quality. 2. Pt will produce pitch range WFL with good quality voice at avg 72 dB to increase prosody in speech and improve vocal quality. 3. Pt will read functional phrases with good quality voice at avg 70 dB to improve/ maintain speech intelligibility and promote carryover of good voicing in functional communication opportunities. 4. Pt will produce structured speech tasks increasing in length and complexity over course of treatment with good voicing at normal conversational levels (65-75 dB) to increase endurance of good quality voice and breath support for functional conversation opportunities. Rhia Goals 1. The pt will perform structured voice tasks (e.g., sustained phonation, pitch range, reading tasks) with voicing, including loudness levels, WNL to increase speech intelligibility and good quality voice. 2. The pt will produce spontaneous conversation with multiple conversation partners and in a variety of environments with loudness levels and vocal quality WNL in 80% of opportunities to increase speech intelligibility and maintain communicative independence and quality of life. 3. The pt will demonstrate independence with HEP to promote carryover of tx results to functional conversation tasks and maintain speech intelligibility and good quality voice in presence of a progressive disease. Treatment Activities The pt completed the following LSVT-Loud tasks with background noise of 60 dB and skilled feedback and encouragement provided throughout: MPT = 16 sec; Avg loudness: 79 .2 dB Pitch Range: 93-388 Hz; Avg loudness of highs, 78.8 dB; lows, 79 dB Reading of Functional Phrases: Avg loudness, 70.5 dB Reading of Paragraphs: Avg loudness of sentences, 71 dB over 4 min of reading. Conversation: Avg loudness, 76 .7 with min prompts initially fading to independence. During all tasks, the pt produced appropriate and clear articulation of words. Assessment Patient Response to Treatment Excellent Rehab Potential Excellent Impairments Identified Parkinson's Disease,Speech Intelligibility,Vocal Quality Additional Impairments Identified Pt reports occ minimal difficulty with swallow Progress Towards Goals Excellent Progress Assessment of Overall Progress Improving Assessment of Improvement Over the course of treatment, the pt has made excellent progress toward goals and is demonstrating increasingly consistent self-monitoring and correcting of loudness in spontaneous speech. He benefits from visual prompt ( Think Loud sign) and dB recording for biofeedback. This week, he has demonstrated significant improvement of vocal quality with increased loudness, which he expresses being able to feel, indicating good calibration for carryover into functional speaking tasks. Additionally, he has been very intentional about improving speech articulation to further improve intelligibility, particularly with his who has some hearing impairment. 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 The pt has been and remains highly motivated to improve communication skills and has been consistently compliant with HEP. Reviewed with Patient Goals,Progress Being Made,Home Exercise Program Patient/Caregiver Understanding Excellent Plan Comment Total of 16 sessions Frequency of Treatment Once a Week Length of Session 60 Minutes Treatment Emphasis Next Session Continue LSVT-Loud protocol at paragraph level Therapeutic Contents Client Education,Home Exercise Program,Intelligibility,Voice Training Provided Patient/Caregiver Instruction Home Exercise Program,Plan of Care,Questions/Concerns Therapy Recommendations Continue with Current Program
--- NOTE | 2020-07-03 13:04 | ST.OPTN ---
Visit Care Team Role Provider Type Deidra Lemus MD Family Provider Non-Staff Primary Care Provider Address: [address], [address] Humberto Garrison MD Attending Provider Non-Staff Referring Provider Address: [address] [place], [address] Fax: MACHINIST GENERAL Treatment Note MACHINIST GENERAL Treatment Note Start: 06/12/20 09:30 Freq: Status: Active Protocol: Document 07/03/20 12:59 MARTINA (Rec: 07/03/20 13:04 MARTINA [id number]) Speech Pathology Treatment Note Session Time Visit Start Time 09:30 Visit Stop Time 10:30 Total Visit Minutes 60 Visit Information Visit Number 04/30 (including evaluation) Plan of Care Dates 06/12/20 - 09/10/20 Insurance Information Medicare Setting Treatment Setting Outpatient Care Visit Type Note Type Treatment Note Next Note Type Next Note Type Treatment Note General Information General Information Pt is a 74-yr-old male with 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 Medical notes indicate mild hypohonia. Symptoms began in 04/2015 with onset of resting tremor in RUE, extending by to bradykinesia and tremor in RUE. The pt completed LSVT-Big therapy at this clinic in October 2017 with recommendation at that time to participate in LSVT-Loud therapy. He reported that treatment for other medical conditions, including an unexplained 10-lb weight loss over the summer, took priority until now. He is here today to initiate LSVT-Loud therapy. The pt reported always having had a soft voice but says his complains that he is now noticably softer, and he feels his speech is becoming more rapid, which further decreases its clarity. He makes efforts to speak slowly and enunciate well, but these behaviors are not habitual. He has also recently noticed increased difficulty swallowing pills. 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 Pt's hobbies includes birdwatching, hiking, biking, and opera. Subjective Observations/Patient Presentation The pt arrived on time. No new complaints. Completing HEP as prescribed. Chief Complaint(s) Voice Additional Areas of Concern Swallow Rehab Expectation/Goals: Patient Goals To produce voice WNL with minimal effort Patient Knowledge/Awareness of MACHINIST GENERAL Role Excellent in Treatment Patient/Caregiver Compliance with Home Excellent Exercise Program Objective Short Term Goals 1. Pt will sustain phonation for 20 seconds with good quality voice at avg 75 dB to increase breath support for speech and vocal quality. 2. Pt will produce pitch range WFL with good quality voice at avg 72 dB to increase prosody in speech and improve vocal quality. 3. Pt will read functional phrases with good quality voice at avg 70 dB to improve/ maintain speech intelligibility and promote carryover of good voicing in functional communication opportunities. 4. Pt will produce structured speech tasks increasing in length and complexity over course of treatment with good voicing at normal conversational levels (65-75 dB) to increase endurance of good quality voice and breath support for functional conversation opportunities. Activity Coordinator Goals 1. The pt will perform structured voice tasks (e.g., sustained phonation, pitch range, reading tasks) with voicing, including loudness levels, WNL to increase speech intelligibility and good quality voice. 2. The pt will produce spontaneous conversation with multiple conversation partners and in a variety of environments with loudness levels and vocal quality WNL in 80% of opportunities to increase speech intelligibility and maintain communicative independence and quality of life. 3. The pt will demonstrate independence with HEP to promote carryover of tx results to functional conversation tasks and maintain speech intelligibility and good quality voice in presence of a progressive disease. Treatment Activities The pt completed the following LSVT-Loud tasks in quiet environment with skilled feedback and encouragement provided throughout: MPT = 18.8 sec; Avg loudness: 81 dB Pitch Range: 91-410 Hz; Avg loudness of highs, 78.6 dB; lows, 78.3 dB Reading of Functional Phrases: Avg loudness, 71 dB Reading of Paragraphs: Avg loudness of sentences, 70 dB over 6 min of reading. Conversation: Avg loudness, 68 .3 at start of session; improved to 71 by end of session. During all tasks, the pt produced appropriate and clear articulation of words. Assessment Patient Response to Treatment Excellent Rehab Potential Excellent Impairments Identified Parkinson's Disease,Speech Intelligibility,Vocal Quality Additional Impairments Identified Pt reports occ minimal difficulty with swallow Progress Towards Goals Excellent Progress Assessment of Overall Progress Improving Assessment of Improvement The pt demonstrated excellent consistency in loudness across all structured tasks. No pitch breaks were made during 6/8 pitch glides up the scale, where in past, the pt has consistently had minimal breaks at transition to falsetto. This demonstrates improved strength and endurance of VF function. The pt exhibited lower than normal loudness in conversation at start of session and in [id number] remarks throughout the session ; however, conversational loudness improved to WNL without cuing by the end of session, demonstrating the benefit of and need for practice. Reviewed with Patient Goals,Progress Being Made,Home Exercise Program Patient/Caregiver Understanding Excellent Plan Comment Total of 16 sessions Frequency of Treatment Once a Week Length of Session 60 Minutes Treatment Emphasis Next Session Continue LSVT-Loud protocol at paragraph level Therapeutic Contents Client Education,Home Exercise Program,Intelligibility,Voice Training Provided Patient/Caregiver Instruction Home Exercise Program,Plan of Care,Questions/Concerns Therapy Recommendations Continue with Current Program
--- NOTE | 2020-07-04 16:48 | ST.OPTN ---
Visit Care Team Role Provider Type Deidra Lemus MD Family Provider Non-Staff Primary Care Provider Address: [address], [address] Humberto Garrison MD Attending Provider Non-Staff Referring Provider Address: [address] [place], [address] Fax: BLEACH ANALYST Treatment Note BLEACH ANALYST Treatment Note Start: 06/12/20 09:30 Freq: Status: Active Protocol: Document 07/04/20 16:43 MARTINA (Rec: 07/04/20 16:48 MARTINA [id number]) Speech Pathology Treatment Note Session Time Visit Start Time 09:30 Visit Stop Time 10:30 Total Visit Minutes 60 Visit Information Visit Number 05/30 (including evaluation) Plan of Care Dates 06/12/20 - 09/10/20 Insurance Information Medicare Setting Treatment Setting Outpatient Care Visit Type Note Type Treatment Note Next Note Type Next Note Type Treatment Note General Information General Information Pt is a 74-yr-old male with 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 Medical notes indicate mild hypohonia. Symptoms began in 04/2015 with onset of resting tremor in RUE, extending by to bradykinesia and tremor in RUE. The pt completed LSVT-Big therapy at this clinic in October 2017 with recommendation at that time to participate in LSVT-Loud therapy. He reported that treatment for other medical conditions, including an unexplained 10-lb weight loss over the summer, took priority until now. He is here today to initiate LSVT-Loud therapy. The pt reported always having had a soft voice but says his complains that he is now noticably softer, and he feels his speech is becoming more rapid, which further decreases its clarity. He makes efforts to speak slowly and enunciate well, but these behaviors are not habitual. He has also recently noticed increased difficulty swallowing pills. 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 Pt's hobbies includes birdwatching, hiking, biking, and opera. Subjective Observations/Patient Presentation The pt arrived on time. No new complaints. Completing HEP as prescribed. Chief Complaint(s) Voice Additional Areas of Concern Swallow Rehab Expectation/Goals: Patient Goals To produce voice WNL with minimal effort Patient Knowledge/Awareness of BLEACH ANALYST Role Excellent in Treatment Patient/Caregiver Compliance with Home Excellent Exercise Program Objective Short Term Goals 1. Pt will sustain phonation for 20 seconds with good quality voice at avg 75 dB to increase breath support for speech and vocal quality. 2. Pt will produce pitch range WFL with good quality voice at avg 72 dB to increase prosody in speech and improve vocal quality. 3. Pt will read functional phrases with good quality voice at avg 70 dB to improve/ maintain speech intelligibility and promote carryover of good voicing in functional communication opportunities. 4. Pt will produce structured speech tasks increasing in length and complexity over course of treatment with good voicing at normal conversational levels (65-75 dB) to increase endurance of good quality voice and breath support for functional conversation opportunities. Soloist Dancer Goals 1. The pt will perform structured voice tasks (e.g., sustained phonation, pitch range, reading tasks) with voicing, including loudness levels, WNL to increase speech intelligibility and good quality voice. 2. The pt will produce spontaneous conversation with multiple conversation partners and in a variety of environments with loudness levels and vocal quality WNL in 80% of opportunities to increase speech intelligibility and maintain communicative independence and quality of life. 3. The pt will demonstrate independence with HEP to promote carryover of tx results to functional conversation tasks and maintain speech intelligibility and good quality voice in presence of a progressive disease. Treatment Activities The pt completed the following LSVT-Loud tasks in quiet environment with skilled feedback and encouragement provided throughout: MPT = 17.4 sec; Avg loudness: 79.4 dB Pitch Range: 77-401 Hz; Avg loudness of highs, 77.6 dB; lows, 79 dB Reading of Functional Phrases: Avg loudness, 69 dB Reading of Paragraphs: Avg loudness of sentences, 70.5 dB over 6 min of reading. Conversation: Avg loudness, 69 .3 across session (range = 67- 71) During all tasks, the pt produced appropriate and clear articulation of words. Assessment Patient Response to Treatment Excellent Rehab Potential Excellent Impairments Identified Parkinson's Disease,Speech Intelligibility,Vocal Quality Additional Impairments Identified Pt reports occ minimal difficulty with swallow Progress Towards Goals Excellent Progress Assessment of Overall Progress Improving Assessment of Improvement The pt continues to make excellent progress toward goals. Reviewed with Patient Goals,Progress Being Made,Home Exercise Program Patient/Caregiver Understanding Excellent Plan Comment Total of 16 sessions Frequency of Treatment Once a Week Length of Session 60 Minutes Treatment Emphasis Next Session Continue LSVT-Loud protocol at paragraph level Therapeutic Contents Client Education,Home Exercise Program,Intelligibility,Voice Training Provided Patient/Caregiver Instruction Home Exercise Program,Plan of Care,Questions/Concerns Therapy Recommendations Continue with Current Program
--- NOTE | 2020-07-05 11:07 | ST.OPTN ---
Visit Care Team Role Provider Type Deidra Lemus MD Family Provider Non-Staff Primary Care Provider Address: [address], [address] Humberto Garrison MD Attending Provider Non-Staff Referring Provider Address: [address] [place], [address] Fax: ACOUSTICAL TILE DRILL PRESS OPERATOR Treatment Note ACOUSTICAL TILE DRILL PRESS OPERATOR Treatment Note Start: 06/12/20 09:30 Freq: Status: Active Protocol: Document 07/04/20 16:43 MARTINA (Rec: 07/04/20 16:48 MARTINA [id number]) Speech Pathology Treatment Note Session Time Visit Start Time 09:30 Visit Stop Time 10:30 Total Visit Minutes 60 Visit Information Visit Number (including evaluation) Plan of Care Dates 06/12/20 - 09/10/20 Insurance Information Medicare Setting Treatment Setting Outpatient Care Visit Type Note Type Treatment Note Next Note Type Next Note Type Treatment Note General Information General Information Pt is a 74-yr-old male with 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 Medical notes indicate mild hypohonia. Symptoms began in 04/2015 with onset of resting tremor in RUE, extending by to bradykinesia and tremor in RUE. The pt completed LSVT-Big therapy at this clinic in October 2017 with recommendation at that time to participate in LSVT-Loud therapy. He reported that treatment for other medical conditions, including an unexplained 10-lb weight loss over the summer, took priority until now. He is here today to initiate LSVT-Loud therapy. The pt reported always having had a soft voice but says his complains that he is now noticably softer, and he feels his speech is becoming more rapid, which further decreases its clarity. He makes efforts to speak slowly and enunciate well, but these behaviors are not habitual. He has also recently noticed increased difficulty swallowing pills. 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 Pt's hobbies includes birdwatching, hiking, biking, and opera. Subjective Observations/Patient Presentation The pt arrived on time. No new complaints. Completing HEP as prescribed. Chief Complaint(s) Voice Additional Areas of Concern Swallow Rehab Expectation/Goals: Patient Goals To produce voice WNL with minimal effort Patient Knowledge/Awareness of ACOUSTICAL TILE DRILL PRESS OPERATOR Role Excellent in Treatment Patient/Caregiver Compliance with Home Excellent Exercise Program Objective Short Term Goals 1. Pt will sustain phonation for 20 seconds with good quality voice at avg 75 dB to increase breath support for speech and vocal quality. 2. Pt will produce pitch range WFL with good quality voice at avg 72 dB to increase prosody in speech and improve vocal quality. 3. Pt will read functional phrases with good quality voice at avg 70 dB to improve/ maintain speech intelligibility and promote carryover of good voicing in functional communication opportunities. 4. Pt will produce structured speech tasks increasing in length and complexity over course of treatment with good voicing at normal conversational levels (65-75 dB) to increase endurance of good quality voice and breath support for functional conversation opportunities. Multimedia Designer Goals 1. The pt will perform structured voice tasks (e.g., sustained phonation, pitch range, reading tasks) with voicing, including loudness levels, WNL to increase speech intelligibility and good quality voice. 2. The pt will produce spontaneous conversation with multiple conversation partners and in a variety of environments with loudness levels and vocal quality WNL in 80% of opportunities to increase speech intelligibility and maintain communicative independence and quality of life. 3. The pt will demonstrate independence with HEP to promote carryover of tx results to functional conversation tasks and maintain speech intelligibility and good quality voice in presence of a progressive disease. Treatment Activities The pt completed the following LSVT-Loud tasks in quiet environment with skilled feedback and encouragement provided throughout: MPT = 18.5 sec; Avg loudness: 78.8 dB Pitch Range: 89-425 Hz; Avg loudness of highs, 78.4 dB; lows, 79.4 dB Reading of Functional Phrases: Avg loudness, 73 dB Reading of Paragraphs: Avg loudness of sentences, 72.5 dB Conversation: Avg loudness, at start of session 69 dB in quiet environment, increased to 70.5 dB with addition of 60 dB of background noise. Avg loudness over the remainder of the session was 71 dB. During all tasks, the pt produced appropriate and clear articulation of words. Assessment Patient Response to Treatment Excellent Rehab Potential Excellent Impairments Identified Parkinson's Disease,Speech Intelligibility,Vocal Quality Additional Impairments Identified Pt reports occ minimal difficulty with swallow Progress Towards Goals Excellent Progress Assessment of Overall Progress Improving Assessment of Improvement The pt continues to make excellent progress toward goals. Improved loudness levels across all tasks today as compared to yesterday. The pt is maintaining at least 69 dB of loudness (avg) in spontaneous conversations without prompts and, according to the pt, without thinking about being loud. This indicates excellent improvement in strength and endurance of respiratory musculature resulting in improved breath support for speech. Reviewed with Patient Goals,Progress Being Made,Home Exercise Program Patient/Caregiver Understanding Excellent Plan Comment Total of 16 sessions Frequency of Treatment Once a Week Length of Session 60 Minutes Treatment Emphasis Next Session Continue LSVT-Loud protocol at conversation level Therapeutic Contents Client Education,Home Exercise Program,Intelligibility,Voice Training Provided Patient/Caregiver Instruction Home Exercise Program,Plan of Care,Questions/Concerns Therapy Recommendations Continue with Current Program
--- NOTE | 2020-07-09 14:05 | ST.OPTN ---
Visit Care Team Role Provider Type Deidra Lemus MD Family Provider Non-Staff Primary Care Provider Address: [address], [address] Humberto Garrison MD Attending Provider Non-Staff Referring Provider Address: [address] [place], [address] Fax: SQL ANALYST Treatment Note SQL ANALYST Treatment Note Start: 06/12/20 09:30 Freq: Status: Active Protocol: Document 07/09/20 13:54 MARTINA (Rec: 07/09/20 14:05 MARTINA [id number]) Speech Pathology Treatment Note Session Time Visit Start Time 09:30 Visit Stop Time 10:30 Total Visit Minutes 60 Visit Information Visit Number (including evaluation) Plan of Care Dates 06/12/20 - 09/10/20 Insurance Information Medicare Setting Treatment Setting Outpatient Care Visit Type Note Type Treatment Note Next Note Type Next Note Type Treatment Note General Information General Information Pt is a 74-yr-old male with 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 Medical notes indicate mild hypohonia. Symptoms began in 04/2015 with onset of resting tremor in RUE, extending by to bradykinesia and tremor in RUE. The pt completed LSVT-Big therapy at this clinic in October 2017 with recommendation at that time to participate in LSVT-Loud therapy. He reported that treatment for other medical conditions, including an unexplained 10-lb weight loss over the summer, took priority until now. He is here today to initiate LSVT-Loud therapy. The pt reported always having had a soft voice but says his complains that he is now noticably softer, and he feels his speech is becoming more rapid, which further decreases its clarity. He makes efforts to speak slowly and enunciate well, but these behaviors are not habitual. He has also recently noticed increased difficulty swallowing pills. 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 Pt's hobbies includes birdwatching, hiking, biking, and opera. Subjective Observations/Patient Presentation The pt arrived on time. No new complaints. Completing HEP as prescribed. Chief Complaint(s) Voice Additional Areas of Concern Swallow Rehab Expectation/Goals: Patient Goals To produce voice WNL with minimal effort Patient Knowledge/Awareness of SQL ANALYST Role Excellent in Treatment Patient/Caregiver Compliance with Home Excellent Exercise Program Objective Short Term Goals 1. Pt will sustain phonation for 20 seconds with good quality voice at avg 75 dB to increase breath support for speech and vocal quality. 2. Pt will produce pitch range WFL with good quality voice at avg 72 dB to increase prosody in speech and improve vocal quality. 3. Pt will read functional phrases with good quality voice at avg 70 dB to improve/ maintain speech intelligibility and promote carryover of good voicing in functional communication opportunities. 4. Pt will produce structured speech tasks increasing in length and complexity over course of treatment with good voicing at normal conversational levels (65-75 dB) to increase endurance of good quality voice and breath support for functional conversation opportunities. Acid Bleacher Goals 1. The pt will perform structured voice tasks (e.g., sustained phonation, pitch range, reading tasks) with voicing, including loudness levels, WNL to increase speech intelligibility and good quality voice. 2. The pt will produce spontaneous conversation with multiple conversation partners and in a variety of environments with loudness levels and vocal quality WNL in 80% of opportunities to increase speech intelligibility and maintain communicative independence and quality of life. 3. The pt will demonstrate independence with HEP to promote carryover of tx results to functional conversation tasks and maintain speech intelligibility and good quality voice in presence of a progressive disease. Treatment Activities The pt completed the following LSVT-Loud tasks in quiet environment with skilled feedback and encouragement provided throughout: MPT = 22.2 sec (3 trials >20 sec); Avg loudness: 81.2 dB Pitch Range: 90-409 Hz; Avg loudness of highs, 79.8 dB; lows, 79 dB Reading of Functional Phrases: Avg loudness, 72 dB Conversation: Avg loudness, 68 dB in quiet tx room with pt wearing clear face shield for COVID-19 safety. Conversation continued in busy PT gym with significant increase and variation in ambient noise. Loudness levels not instrumentally measured. Initially, SQL ANALYST required mild straining to hear and understand the pt, who was now wearing a mask for COVID-19 safety (SQL ANALYST unable to see pt's mouth/read lips). The pt independently increased loudness to levels WNL, and intelligibility remained at 100% for remainder of session. During structured tasks, the pt's [id number] remarks were produced at notably reduced loudness levels, almost imperceivable. Skilled feedback provided, including encouragement to elicit feedback from at home to determine appropriate loudness levels for that communicative environment/partner and, rather than reminding himself that he has to be loud, reframe such ideas to consider staying connected with his conversation partner in all comments. The pt expresse appreciation of such perspective and intent to consult with his . Assessment Patient Response to Treatment Excellent Rehab Potential Excellent Impairments Identified Parkinson's Disease,Speech Intelligibility,Vocal Quality Additional Impairments Identified Pt reports occ minimal difficulty with swallow Progress Towards Goals Excellent Progress Assessment of Overall Progress Improving Assessment of Improvement The pt continues to make great progress toward goals, with exception of maintaining adequate loudness and speech articulation in [id number] remarks. He was receptive to skilled feedback and encouragement. In louder, busier environment, the pt was initially below normal/target limits, requiring SQL ANALYST to strain to understand; however, the pt independently corrected and increased loudness to target levels, particularly when discussing a topic of high interest to him . Reviewed with Patient Goals,Progress Being Made,Home Exercise Program Patient/Caregiver Understanding Excellent Plan Comment Total of 16 sessions Frequency of Treatment Once a Week Length of Session 60 Minutes Treatment Emphasis Next Session Continue LSVT-Loud protocol at conversation level Therapeutic Contents Client Education,Home Exercise Program,Intelligibility,Voice Training Provided Patient/Caregiver Instruction Home Exercise Program,Plan of Care,Questions/Concerns Therapy Recommendations Continue with Current Program
--- NOTE | 2020-07-10 13:02 | ST.OPTN ---
Visit Care Team Role Provider Type Deidra Lemus MD Family Provider Non-Staff Primary Care Provider Address: [address], [address] Humberto Garrison MD Attending Provider Non-Staff Referring Provider Address: [address] [place], [address] Fax: HEAD MILLER Treatment Note HEAD MILLER Treatment Note Start: 06/12/20 09:30 Freq: Status: Active Protocol: Document 07/09/20 13:54 MARTINA (Rec: 07/09/20 14:05 MARTINA [id number]) Speech Pathology Treatment Note Session Time Visit Start Time 09:30 Visit Stop Time 10:30 Total Visit Minutes 60 Visit Information Visit Number (including evaluation) Plan of Care Dates 06/12/20 - 09/10/20 Insurance Information Medicare Setting Treatment Setting Outpatient Care Visit Type Note Type Treatment Note Next Note Type Next Note Type Treatment Note General Information General Information Pt is a 74-yr-old male with 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 Medical notes indicate mild hypohonia. Symptoms began in 04/2015 with onset of resting tremor in RUE, extending by to bradykinesia and tremor in RUE. The pt completed LSVT-Big therapy at this clinic in October 2017 with recommendation at that time to participate in LSVT-Loud therapy. He reported that treatment for other medical conditions, including an unexplained 10-lb weight loss over the summer, took priority until now. He is here today to initiate LSVT-Loud therapy. The pt reported always having had a soft voice but says his complains that he is now noticably softer, and he feels his speech is becoming more rapid, which further decreases its clarity. He makes efforts to speak slowly and enunciate well, but these behaviors are not habitual. He has also recently noticed increased difficulty swallowing pills. 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 Pt's hobbies includes birdwatching, hiking, biking, and opera. Subjective Observations/Patient Presentation The pt arrived on time. No new complaints. Completing HEP as prescribed. Chief Complaint(s) Voice Additional Areas of Concern Swallow Rehab Expectation/Goals: Patient Goals To produce voice WNL with minimal effort Patient Knowledge/Awareness of HEAD MILLER Role Excellent in Treatment Patient/Caregiver Compliance with Home Excellent Exercise Program Objective Short Term Goals 1. Pt will sustain phonation for 20 seconds with good quality voice at avg 75 dB to increase breath support for speech and vocal quality. 2. Pt will produce pitch range WFL with good quality voice at avg 72 dB to increase prosody in speech and improve vocal quality. 3. Pt will read functional phrases with good quality voice at avg 70 dB to improve/ maintain speech intelligibility and promote carryover of good voicing in functional communication opportunities. 4. Pt will produce structured speech tasks increasing in length and complexity over course of treatment with good voicing at normal conversational levels (65-75 dB) to increase endurance of good quality voice and breath support for functional conversation opportunities. Store Keeper Goals 1. The pt will perform structured voice tasks (e.g., sustained phonation, pitch range, reading tasks) with voicing, including loudness levels, WNL to increase speech intelligibility and good quality voice. 2. The pt will produce spontaneous conversation with multiple conversation partners and in a variety of environments with loudness levels and vocal quality WNL in 80% of opportunities to increase speech intelligibility and maintain communicative independence and quality of life. 3. The pt will demonstrate independence with HEP to promote carryover of tx results to functional conversation tasks and maintain speech intelligibility and good quality voice in presence of a progressive disease. Treatment Activities The pt completed the following LSVT-Loud tasks in quiet environment with skilled feedback and encouragement provided throughout: MPT = 22.2 sec (3 trials >20 sec); Avg loudness: 81.2 dB Pitch Range: 90-409 Hz; Avg loudness of highs, 79.8 dB; lows, 79 dB Reading of Functional Phrases: Avg loudness, 72 dB Conversation: Avg loudness, 68 dB in quiet tx room with pt wearing clear face shield for COVID-19 safety. Conversation continued in busy PT gym with significant increase and variation in ambient noise. Loudness levels not instrumentally measured. Initially, HEAD MILLER required mild straining to hear and understand the pt, who was now wearing a mask for COVID-19 safety (HEAD MILLER unable to see pt's mouth/read lips). The pt independently increased loudness to levels WNL, and intelligibility remained at 100% for remainder of session. During structured tasks, the pt's [id number] remarks were produced at notably reduced loudness levels, almost imperceivable. Skilled feedback provided, including encouragement to elicit feedback from at home to determine appropriate loudness levels for that communicative environment/partner and, rather than reminding himself that he has to be loud, reframe such ideas to consider staying connected with his conversation partner in all comments. The pt expresse appreciation of such perspective and intent to consult with his . Assessment Patient Response to Treatment Excellent Rehab Potential Excellent Impairments Identified Parkinson's Disease,Speech Intelligibility,Vocal Quality Additional Impairments Identified Pt reports occ minimal difficulty with swallow Progress Towards Goals Excellent Progress Assessment of Overall Progress Improving Assessment of Improvement The pt continues to make great progress toward goals, with exception of maintaining adequate loudness and speech articulation in [id number] remarks. He was receptive to skilled feedback and encouragement. In louder, busier environment, the pt was initially below normal/target limits, requiring HEAD MILLER to strain to understand; however, the pt independently corrected and increased loudness to target levels, particularly when discussing a topic of high interest to him . Reviewed with Patient Goals,Progress Being Made,Home Exercise Program Patient/Caregiver Understanding Excellent Plan Comment Total of 16 sessions Frequency of Treatment Once a Week Length of Session 60 Minutes Treatment Emphasis Next Session Continue LSVT-Loud protocol at conversation level Therapeutic Contents Client Education,Home Exercise Program,Intelligibility,Voice Training Provided Patient/Caregiver Instruction Home Exercise Program,Plan of Care,Questions/Concerns Therapy Recommendations Continue with Current Program
--- NOTE | 2020-07-10 13:09 | ST.OPTN ---
Visit Care Team Role Provider Type Deidra Lemus MD Family Provider Non-Staff Primary Care Provider Address: [address], [address] Humberto Garrison MD Attending Provider Non-Staff Referring Provider Address: [address] [place], [address] Fax: INSULATOR TECHNICIAN Treatment Note INSULATOR TECHNICIAN Treatment Note Start: 06/12/20 09:30 Freq: Status: Active Protocol: Document 07/10/20 13:03 MARTINA (Rec: 07/10/20 13:09 MARTINA [id number]) Speech Pathology Treatment Note Session Time Visit Start Time 09:30 Visit Stop Time 10:30 Total Visit Minutes 60 Visit Information Visit Number 16 (including evaluation) Plan of Care Dates 06/12/20 - 09/10/20 Insurance Information Medicare Setting Treatment Setting Outpatient Care Visit Type Note Type Treatment Note Next Note Type Next Note Type Treatment Note General Information General Information Pt is a 74-yr-old male with 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 Medical notes indicate mild hypohonia. Symptoms began in 04/2015 with onset of resting tremor in RUE, extending by to bradykinesia and tremor in RUE. The pt completed LSVT-Big therapy at this clinic in October 2017 with recommendation at that time to participate in LSVT-Loud therapy. He reported that treatment for other medical conditions, including an unexplained 10-lb weight loss over the summer, took priority until now. He is here today to initiate LSVT-Loud therapy. The pt reported always having had a soft voice but says his complains that he is now noticably softer, and he feels his speech is becoming more rapid, which further decreases its clarity. He makes efforts to speak slowly and enunciate well, but these behaviors are not habitual. He has also recently noticed increased difficulty swallowing pills. 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 Pt's hobbies includes birdwatching, hiking, biking, and opera. Subjective Observations/Patient Presentation The pt arrived on time. No new complaints. Completing HEP as prescribed. Chief Complaint(s) Voice Additional Areas of Concern Swallow Rehab Expectation/Goals: Patient Goals To produce voice WNL with minimal effort Patient Knowledge/Awareness of INSULATOR TECHNICIAN Role Excellent in Treatment Patient/Caregiver Compliance with Home Excellent Exercise Program Objective Short Term Goals 1. Pt will sustain phonation for 20 seconds with good quality voice at avg 75 dB to increase breath support for speech and vocal quality. 2. Pt will produce pitch range WFL with good quality voice at avg 72 dB to increase prosody in speech and improve vocal quality. 3. Pt will read functional phrases with good quality voice at avg 70 dB to improve/ maintain speech intelligibility and promote carryover of good voicing in functional communication opportunities. 4. Pt will produce structured speech tasks increasing in length and complexity over course of treatment with good voicing at normal conversational levels (65-75 dB) to increase endurance of good quality voice and breath support for functional conversation opportunities. Bow Maker Production Goals 1. The pt will perform structured voice tasks (e.g., sustained phonation, pitch range, reading tasks) with voicing, including loudness levels, WNL to increase speech intelligibility and good quality voice. 2. The pt will produce spontaneous conversation with multiple conversation partners and in a variety of environments with loudness levels and vocal quality WNL in 80% of opportunities to increase speech intelligibility and maintain communicative independence and quality of life. 3. The pt will demonstrate independence with HEP to promote carryover of tx results to functional conversation tasks and maintain speech intelligibility and good quality voice in presence of a progressive disease. Treatment Activities The pt completed the following LSVT-Loud tasks in quiet environment with skilled feedback and encouragement provided throughout: MPT = 19.6 sec; Avg loudness: 78.8 dB Pitch Range: 88-412 Hz; Avg loudness of highs, 78.4 dB; lows, 77.6 dB Reading of Functional Phrases: Avg loudness, 69 dB; pt read phrases at the loudness that he deemed would be optimal for conversations with his who has acute hearing. Conversation (with background noise at 60 dB): Avg loudness, 66 dB at start of session, which was audible but required some strain from INSULATOR TECHNICIAN to hear/ understand. Increased to avg of 70.7 dB over remainder of session, WNL. Assessment Patient Response to Treatment Excellent Rehab Potential Excellent Impairments Identified Parkinson's Disease,Speech Intelligibility,Vocal Quality Additional Impairments Identified Pt reports occ minimal difficulty with swallow Progress Towards Goals Excellent Progress Assessment of Overall Progress Improving Assessment of Improvement Making great progression toward goals. Loudness in conversation at start of session continues to be mildly below targets. The pt consistently improves spontaneous loudness following completion of daily exercises . Reviewed with Patient Goals,Progress Being Made,Home Exercise Program Patient/Caregiver Understanding Excellent Plan Frequency of Treatment Once a Week Length of Session 60 Minutes Treatment Emphasis Next Session Continue LSVT-Loud protocol at conversation level Therapeutic Contents Client Education,Home Exercise Program,Intelligibility,Voice Training Provided Patient/Caregiver Instruction Home Exercise Program,Plan of Care,Questions/Concerns Therapy Recommendations Continue with Current Program
--- NOTE | 2020-07-11 11:48 | ST.OPTN ---
Visit Care Team Role Provider Type Deidra Lemus MD Family Provider Non-Staff Primary Care Provider Address: [address], [address] Humberto Garrison MD Attending Provider Non-Staff Referring Provider Address: [address] [place], [address] Fax: CHIEF OPHTHALMIC TECHNICIAN Treatment Note CHIEF OPHTHALMIC TECHNICIAN Treatment Note Start: 06/12/20 09:30 Freq: Status: Active Protocol: Document 07/11/20 11:42 MARTINA (Rec: 07/11/20 11:47 MARTINA [email or web address]) Speech Pathology Treatment Note Session Time Visit Start Time 09:30 Visit Stop Time 10:30 Total Visit Minutes 60 Visit Information Visit Number 15/16 (+ evaluation) Plan of Care Dates 06/12/20 - 09/10/20 Insurance Information Medicare Setting Treatment Setting Outpatient Care Visit Type Note Type Treatment Note Next Note Type Next Note Type Treatment Note General Information General Information Pt is a 74-yr-old male with 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 Medical notes indicate mild hypohonia. Symptoms began in 04/2015 with onset of resting tremor in RUE, extending by to bradykinesia and tremor in RUE. The pt completed LSVT-Big therapy at this clinic in October 2017 with recommendation at that time to participate in LSVT-Loud therapy. He reported that treatment for other medical conditions, including an unexplained 10-lb weight loss over the summer, took priority until now. He is here today to initiate LSVT-Loud therapy. The pt reported always having had a soft voice but says his complains that he is now noticably softer, and he feels his speech is becoming more rapid, which further decreases its clarity. He makes efforts to speak slowly and enunciate well, but these behaviors are not habitual. He has also recently noticed increased difficulty swallowing pills. 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 Pt's hobbies includes birdwatching, hiking, biking, and opera. Subjective Observations/Patient Presentation The pt arrived on time. No new complaints. Completing HEP as prescribed. Chief Complaint(s) Voice Additional Areas of Concern Swallow Rehab Expectation/Goals: Patient Goals To produce voice WNL with minimal effort Patient Knowledge/Awareness of CHIEF OPHTHALMIC TECHNICIAN Role Excellent in Treatment Patient/Caregiver Compliance with Home Excellent Exercise Program Objective Short Term Goals 1. Pt will sustain phonation for 20 seconds with good quality voice at avg 75 dB to increase breath support for speech and vocal quality. 2. Pt will produce pitch range WFL with good quality voice at avg 72 dB to increase prosody in speech and improve vocal quality. 3. Pt will read functional phrases with good quality voice at avg 70 dB to improve/ maintain speech intelligibility and promote carryover of good voicing in functional communication opportunities. 4. Pt will produce structured speech tasks increasing in length and complexity over course of treatment with good voicing at normal conversational levels (65-75 dB) to increase endurance of good quality voice and breath support for functional conversation opportunities. Epitaxial Reactor Technician Goals 1. The pt will perform structured voice tasks (e.g., sustained phonation, pitch range, reading tasks) with voicing, including loudness levels, WNL to increase speech intelligibility and good quality voice. 2. The pt will produce spontaneous conversation with multiple conversation partners and in a variety of environments with loudness levels and vocal quality WNL in 80% of opportunities to increase speech intelligibility and maintain communicative independence and quality of life. 3. The pt will demonstrate independence with HEP to promote carryover of tx results to functional conversation tasks and maintain speech intelligibility and good quality voice in presence of a progressive disease. Treatment Activities The pt completed the following LSVT-Loud tasks in quiet environment with skilled feedback and encouragement provided throughout: MPT = 23.5 sec (4 trials at > 19 sec); Avg loudness: 77.8 dB Pitch Range: 71-472 Hz; All high pitch trials were above 700 Hz; all low pitch trials were <90 Hz. Avg loudness of highs, 78.3 dB; lows, 77.2 dB Reading of Functional Phrases: Avg loudness, 70 dB; pt read phrases at the loudness that he deemed would be optimal for conversations with his who has acute hearing. Conversation: Avg loudness in quiet room, 69.7 dB; with background noise at 60 dB, avg loudness was 70 dB. Assessment Patient Response to Treatment Excellent Rehab Potential Excellent Impairments Identified Parkinson's Disease,Speech Intelligibility,Vocal Quality Progress Towards Goals Excellent Progress Assessment of Overall Progress Improving Assessment of Improvement Making great progression toward goals, particularly exceling in pitch range exercises while maintaining excellent loudness levels. Conversational loudness WNL both in quiet environment and with 60 dB background noise. Pt continues to increase independence in self- monitoring and adjusting appropriately. Reviewed with Patient Goals,Progress Being Made,Home Exercise Program Patient/Caregiver Understanding Excellent Plan Frequency of Treatment Once a Week Length of Session 60 Minutes Treatment Emphasis Next Session Continue LSVT-Loud protocol at conversation level Therapeutic Contents Client Education,Home Exercise Program,Intelligibility,Voice Training Provided Patient/Caregiver Instruction Home Exercise Program,Plan of Care,Questions/Concerns Therapy Recommendations Continue with Current Program
--- NOTE | 2020-07-12 11:54 | ST.OPDS ---
Visit Care Team Role Provider Type Deidra Lemus MD Family Provider Non-Staff Primary Care Provider Address: [address], [address] Humberto Garrison MD Attending Provider Non-Staff Referring Provider Address: [address] [place], [address] Fax: TEST HOLE DRILLER Treatment Note TEST [facility]LE DRILLER Treatment Note Start: 06/12/20 09:30 Freq: Status: Active Protocol: Document 07/12/20 10:59 MARTINA (Rec: 07/12/20 11:46 MARTINA [id number]) Speech Pathology Treatment Note Session Time Visit Start Time 09:30 Visit Stop Time 10:45 Total Visit Minutes 75 Visit Information Visit Number (+ evaluation) Plan of Care Dates 06/12/20 - 09/10/20 Insurance Information Medicare Setting Treatment Setting Outpatient Care Visit Type Note Type Discharge Summary General Information General Information Pt is a 74-yr-old male with 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 Medical notes indicate mild hypohonia. Symptoms began in 04/2015 with onset of resting tremor in RUE, extending by to bradykinesia and tremor in RUE. The pt completed LSVT-Big therapy at this clinic in October 2017 with recommendation at that time to participate in LSVT-Loud therapy. He reported that treatment for other medical conditions, including an unexplained 10-lb weight loss over the summer, took priority until now. He is here today to initiate LSVT-Loud therapy. The pt reported always having had a soft voice but says his complains that he is now noticably softer, and he feels his speech is becoming more rapid, which further decreases its clarity. He makes efforts to speak slowly and enunciate well, but these behaviors are not habitual. He has also recently noticed increased difficulty swallowing pills. 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 Pt's hobbies includes birdwatching, hiking, biking, and opera. Subjective Observations/Patient Presentation The pt arrived on time accompanied by his , who was present for most of the session to provide feedback on her observations of the pt's progress and to participate in summary of care education, listening of before and after voice recordings, etc. Chief Complaint(s) Voice Additional Areas of Concern Swallow - The pt reports greater ease in swallowing large pills now. Rehab Expectation/Goals: Patient Goals To produce voice WNL with minimal effort - Goal achieved , per pt report. Patient Knowledge/Awareness of TEST HOLE DRILLER Role Excellent in Treatment Patient/Caregiver Compliance with Home Excellent Exercise Program Objective Short Term Goals ALL GOALS HAVE BEEN MET 1. Pt will sustain phonation for 20 seconds with good quality voice at avg 75 dB to increase breath support for speech and vocal quality. 2. Pt will produce pitch range WFL with good quality voice at avg 72 dB to increase prosody in speech and improve vocal quality. 3. Pt will read functional phrases with good quality voice at avg 70 dB to improve/ maintain speech intelligibility and promote carryover of good voicing in functional communication opportunities. 4. Pt will produce structured speech tasks increasing in length and complexity over course of treatment with good voicing at normal conversational levels (65-75 dB) to increase endurance of good quality voice and breath support for functional conversation opportunities. Retirement Goals ALL GOALS HAVE BEEN MET 1. The pt will perform structured voice tasks (e.g., sustained phonation, pitch range, reading tasks) with voicing, including loudness levels, WNL to increase speech intelligibility and good quality voice. 2. The pt will produce spontaneous conversation with multiple conversation partners and in a variety of environments with loudness levels and vocal quality WNL in 80% of opportunities to increase speech intelligibility and maintain communicative independence and quality of life. 3. The pt will demonstrate independence with HEP to promote carryover of tx results to functional conversation tasks and maintain speech intelligibility and good quality voice in presence of a progressive disease. Treatment Activities The pt completed the following LSVT-Loud tasks in quiet environment with skilled feedback and encouragement provided throughout: MPT = 19 sec (3/4 trials at > 18 sec); Avg loudness: 78 dB Pitch Range: 82-441 Hz; All high pitch trials were above 400 Hz; all low pitch trials were <100 Hz. Avg loudness of highs, 80 dB; lows, 78.3 dB Reading of Functional Phrases: The pt intentionally targeted and met averages of 75 dB and then 70 dB across 2 readings with different audiences in mind, demonstrating excellent awareness of effort required for different loudness levels as well as identifying and meeting the needs of different conversation partners. Conversation: Avg loudness in quiet room, 69 dB Jitter: 0.84% (WNL; 0.40% at SOC, also WNL where normal = 1 .040% or lower) Shimmer: 2.15% (WNL; 3.47% at SOC, just WNL where normal = 3 .810% or lower) VHI = Functional Scale 5 (min impact; SOC = 17, mod-severe); Physical Scale 9 (mild impact ; SOC = 17, mod); Emotional Scale 4 (min impact; 7, mild); Overall Impact 18 (minimal impact; SOC = 41, mod). CAPE-V: Overall Severity: 12%, Mild & Intermittent; Roughness: 3%, Minimal & Intermittent; Breathiness: 15% , Mild & Intermittent; Strain and Pitch: WNL Consistently; Loudness: 12%, Mildly reduced & Intermittent; Normal resonance Education and skilled feedback was provided to the pt and his RE progress made ( including playback of voice recordings from initial evaluation and today), effects of PD on voice, swallow, cough, speech, and cognition, and recommendations for continuing HEP 2x/day indefinitely. Discussed f/u appt(s) in 6 mos to check in with loudness and LSVT-Loud targets, as well as any other needs or concerns Speech Pathology may be able to address for the pt. All questions were answered, and the pt/spouse provided excellent feedback RE changes they have observed as a result of LSVT-Loud treatment. Assessment Patient Response to Treatment Excellent Rehab Potential Excellent Impairments Identified Parkinson's Disease,Speech Intelligibility,Vocal Quality Progress Towards Goals Excellent Progress Assessment of Overall Progress Improving Assessment of Improvement Over the course of treatment, the pt has made excellent progress in improving vocal quality, stamina, loudness levels, and overall speech intelligibility in a variety of structured exercises and spontaneous speech. Instrumental measurements of voice indicate improved vocal stability, particularly in amplitude; increased pitch range from 97-379 Hz with weak vocal quality at SOC to 71- 472 Hz with significantly improved quality of voice and increased loudness levels measured at treatment session #15. MPT has improved from 17 sec with an avg loudness of 63 dB at SOC to 23.5 sec with an avg loudness of 76 dB measured at treatment session #15, demonstrating increased breath support for voice and improved quality, stability, and stamina of voice. Perceptual measurements indicate significant improvement, as well. The pt's overall perceived impact of voice problems on his life ( functional, physical and emotional scales) has improved from moderate to minimal impact, as measured by VHI. The clinician's overall perceived assessment of the pt 's vocal quality has improved from moderate-severe impairment (present consistently) at SOC to mild impairment (present inconsistently) at EOC, as measured by CAPE-V. The pt has improved in his ability to self-monitor and correct loudness and rate of speech, although occasional v/ v prompts are required in spontaneous speech and off-the -cuff remarks. The pt has reported notably reduced physical effort to be and stay loud over longer periods of time and in various communication settings/tasks. This, and his increased pitch range with improved vocal quality, has boosted his confidence, per his report. His reports reduced need to remind him to be loud or to speak clearly and an improved quality of life. The pt has been highly motivated, participatory, and consistent with home practice throughout the course of treatment and has reaped the benefits of his hard work. He has been a pleasure to work with. Reviewed with Patient Goals,Progress Being Made,Home Exercise Program Patient/Caregiver Understanding Excellent Plan Comment Recommend f/u in 6 mos Therapeutic Contents Client Education,Home Exercise Program,Intelligibility,Voice Training Provided Patient/Caregiver Instruction Home Exercise Program,Plan of Care,Questions/Concerns Therapy Recommendations Discharge to Home Exercise Program
== END 2020-07-16 14:56 | disposition home or self-care (01) ==
LOC: SP 09:30
PROVIDERS: Family Provider Internal Medicine; PCP Internal Medicine; Referring Provider Psychiatry & Neurology Neurology; Visit Provider Psychiatry & Neurology Neurology
DX: G20 Parkinson's disease (principal); R49.8 Other voice and resonance disorders
CPT/HCPCS: 92507; 92520; 92524

== ENCOUNTER → 2020-07-16 14:16 | Outpatient (CLI) | payer MEDICARE, SELFPAY ==
[2020-07-16 15:25] LABS: COVID19 -Nasal RAPID Negative (Negative)
== END ==
PROVIDERS: Family Provider Internal Medicine; PCP Internal Medicine; Visit Provider Physical Medicine & Rehabilitation
DX: Z20.822 Contact with and (suspected) exposure to COVID-19 (principal)
CPT/HCPCS: 87635; C9803

== ENCOUNTER 2020-07-17 09:03 | Outpatient (CLI) | payer MEDICARE, SELFPAY ==
[2020-07-17] VITALS (7 sets, daily range): BP systolic 101–132; BP diastolic 54–72; PULSE 66–77; RESP 11–20; TEMP 36.3–36.9; O2SAT 96–100
--- NOTE | 2020-07-17 09:05 | DI.RAD.S_ITS ---
PROCEDURE: PAIN SI JOINT INJECTION INDICATIONS: coccygeal disorder COMPARISON: [facility], XA, PAIN L/SI FACET INJ/BLK 1STL, 04/17/2020, 12:03. FINDINGS: Fluoroscopic spot filming was performed to verify placement of spinal needles at the level of the coccyx, as labeled on the films. Appropriate location(s) of the needle tip(s) was confirmed by injection of iodinated contrast. IMPRESSION: Intraprocedural examination within normal limits. Dictated by: Ascencion Baron M.D. on 07/17/2020 at 11:59 Approved by: Ascencion Baron M.D. on 07/17/2020 at 12:00
[2020-07-17] MEDS: MIDAZOLAM 5 MG/5 ML VIAL IV (09:39)
[2020-07-17] MEDS: fentaNYL 100 MCG/2 ML INJ 50 MCG IV (09:39)
[2020-07-17] MEDS: BUPIVACAINE 0.5% (PF) VIAL 2 ML INJ (09:44)
[2020-07-17] MEDS: BETAMETHASONE 30 MG/5 ML MDV 12 MG INJ (09:44)
[2020-07-17] MEDS: IOPAMIDOL 15 ML VIAL 3 ML INJ (09:44)
--- NOTE | 2020-07-17 09:54 | P.PCN_ITS ---
Date/Time/Diagnoses Date of procedure: 07/17/20 Time of procedure: 09:54 Pre-procedure diagnosis: 1. Coccydynia Post-procedure diagnosis: same Procedure Notes Procedure: 1. FLUOROSCOPICALLY GUIDED CONTRAST CONTROLLED COCCYX INJECTION Indications: Onel is referred by Dr. Lemus for treatment of Multilevel Stenosis Physician: Jayme Gomes Total Fluoroscopy time (seconds): 4 Total sedation minutes: 11 Complications: none Procedure in detail & Post-procedure care: FINDINGS Multilevel Stenosis S/p Lami/Fusion Syndrome DESCRIPTION OF PROCEDURE Fluoroscopically guided, contrast controlled coccyx injection with Conscious Sedation Following review of allergy and review of potential side effects and complications, including but not necessarily limited to infection, allergic reaction, local tissue breakdown, temporary or permanent nerve injury, stroke, paralysis, and possible , the patient indicated that they understood and agreed to proceed. An informed consent document was signed by the patient, witnessed by a nurse, and placed in the patient's chart. Additionally, other treatment options including medications, modalities, and physical therapy were reviewed with the patient. After review of previous anaesthesic history and IV conscious sedation the patient was deemed safe to proceed with today?s procedure with IV conscious sedation as ASA class II designation. Safety time-out was performed to confirm patient ID, procedure to be performed and site of procedure. IV sedation was accomplished with a combination of 2mg of Versed and 50mcg of Fentanyl administ ered by the RN after DO order, titrated to patient comfort during the course of the procedure while the patient remained responsive to all verbal commands In the prone position, following sterile prep and drape of the coccyx region, the sacral hiatus was identified fluoroscopically. The skin was anesthetized via a 25-gauge, 1.5-inch needle with approximately 2cc of 1% lidocaine solution. At this point, a 25-gauge, 3inch needle was atraumatically introduced and advanced under fluoroscopic guidance to the sacral-coccyxgeal joint. Following negative aspiration, injection of approximately 0.3cc of Isovue 300 confirmed interarticular placement without vascular uptake. Radiological data, including multiple fluoroscopic views of the lumbosacral spine, reveal a spinal needle in the sacro-coccyxgeal ligament and joint. Subsequent views show flow of contrast material superiorly and inferiorly in the sacral canal without vascular or intrathecal uptake. At this point, a total of 3cc including 2cc or 18mg of betamethasone and 3cc of 0.5% marcaine solution was injected without complication. The patient tolerated the procedure well without signs or symptoms of complications prior to transfer to the recovery area continued monitoring without incident. The patient was then transferred to the recovery area where they were observed for an appropriate period of time after the injection. The patient reported a VAS score of 7 prior to the procedure and a post-procedure VAS of 2. POST OP INSTRUCTIONS The patient was provided a Pain Log to continue to record their response to the target-specific procedure prior to their follow-up visit with the referring physician. Additionally, specific post-injection care instructions and a contact number to our office were provided if concerns arise regarding possible complications associated with the procedure are suspected.
== END 2020-07-17 10:10 | disposition home or self-care (01) ==
LOC: RAD 09:05
PROVIDERS: Family Provider Internal Medicine; PCP Internal Medicine; Referring Provider Internal Medicine; Visit Provider Physical Medicine & Rehabilitation
DX: M53.3 Sacrococcygeal disorders, not elsewhere classified (principal); M48.08 Spinal stenosis, sacral and sacrococcygeal region; M96.1 Postlaminectomy syndrome, not elsewhere classified; Z98.1 Arthrodesis status
CPT/HCPCS: 27096; 99152; J0702; J2250; J3010

== ENCOUNTER → 2020-08-03 15:15 | Outpatient (CLI) | payer MEDICARE, SELFPAY ==
[2020-08-03] MEDS: COVID-19 VACC #2, MRNA(MOD) 100 MCG/0.5 ML VIAL IM (15:25)
== END ==
PROVIDERS: Family Provider Internal Medicine; PCP Internal Medicine; Visit Provider Internal Medicine
DX: Z23 Encounter for immunization (principal)
CPT/HCPCS: 0012A; 91301

== ENCOUNTER → 2020-08-17 11:05 | Outpatient (CLI) | payer MEDICARE, SELFPAY ==
[2020-08-17 13:07] LABS: Prostate Specific Antigen 2.29 ng/mL (0.10-4.00)
== END ==
PROVIDERS: Family Provider Internal Medicine; PCP Family Medicine; Referring Provider Specialist; Visit Provider Specialist
DX: R97.20 Elevated prostate specific antigen [PSA] (principal)
CPT/HCPCS: 36415; 84153

== ENCOUNTER → 2020-09-11 14:41 | Outpatient (CLI) | payer MEDICARE, SELFPAY ==
[2020-09-11 15:28] LABS: COVID19 -Nasal RAPID Negative (Negative)
== END ==
PROVIDERS: Family Provider Internal Medicine; PCP Family Medicine; Visit Provider Physical Medicine & Rehabilitation
DX: Z20.822 Contact with and (suspected) exposure to COVID-19 (principal)
CPT/HCPCS: 87635; C9803

== ENCOUNTER 2020-09-13 14:58 | Outpatient (CLI) | payer MEDICARE, SELFPAY ==
[2020-09-13] VITALS (9 sets, daily range): BP systolic 118–139; BP diastolic 56–90; PULSE 66–73; RESP 10–17; TEMP 36; O2SAT 98–100
--- NOTE | 2020-09-13 14:59 | DI.RAD.S_ITS ---
PROCEDURE: PAIN L/SI FACET INJ/BLK 1STL INDICATIONS: SPONDYLOSIS COMPARISON: [facility], XA, PAIN L/SI FACET INJ/BLK 1STL, 04/17/2020, 12:03. [facility], XA, PAIN L/SI FACET INJ/BLK 1STL, 02/01/2019, 14:53. FINDINGS: Fluoroscopic spot filming was performed to verify placement of spinal needles at the right L4, L5, and S1 margins for medial branch block procedures level(s), as labeled on the films. Appropriate location(s) of the needle tip(s) was confirmed by injection of iodinated contrast. IMPRESSION: Successful needle tip localization for right-sided medial branch block procedures. Dictated by: Trung Millan M.D. on 09/13/2020 at 16:17 Approved by: Trung Millan M.D. on 09/13/2020 at 16:18
[2020-09-13] MEDS: MIDAZOLAM 5 MG/5 ML VIAL IV (15:25)
[2020-09-13] MEDS: fentaNYL 100 MCG/2 ML INJ 50 MCG IV (15:25)
[2020-09-13] MEDS: IOPAMIDOL 15 ML VIAL 3 ML INJ (15:31)
[2020-09-13] MEDS: BUPIVACAINE 0.5% (PF) VIAL 2 ML INJ (15:31)
--- NOTE | 2020-09-13 15:39 | P.PCN_ITS ---
Date/Time/Diagnoses Date of procedure: 09/13/20 Time of procedure: 15:39 Pre-procedure diagnosis: 1. FACET ARTHROPATHY Post-procedure diagnosis: same Procedure Notes Procedure: 1. Right L4, L5 and S1 MB BLOCKS Indications: Kenneth is referred by Dr. Dickey for treatment of Right Axial LBP. Physician: Jayme Gomes Total Fluoroscopy time (seconds): 4 Total sedation minutes: 15 Complications: none Procedure in detail & Post-procedure care: DESCRIPTION OF PROCEDURE Fluoroscopically guided, contrast-controlled right L4, L5 and S1 medial branch blocks with 0.5cc of 0.5% Marcaine. Following review of allergy and review of potential side effects and complications, including, but not necessarily limited to, infection, allergic reaction, local tissue breakdown, nerve injury, paralysis, stroke and possible , the patient indicated that the patient understood and agreed to proceed. An informed consent document was signed by the patient, witnessed by a nurse, and placed in the patient's chart. After review of previous anaesthesic history and IV conscious sedation the patient was deemed safe to proceed with today?s procedure with IV conscious sedation as ASA class II designation. Safety time-out was performed to confirm patient ID, procedure to be performed and site of procedure. IV sedation was accomplished with a combination of 2mg of Versed and 50mcg of Fentanyl was administered by the RN after DO order, titrated to patient comfort during the course of the procedure while the patient remained responsive to all verbal commands In the prone position, following sterile prep and drape of the lumbar region, the right L4, L5 and S1 anatomical location of the medial branch of the dorsal ramus was identified fluoroscopically. Subsequently an anesthetic skin wheal using 1% lidocaine solution was initiated at each of the anatomical spots. Subsequently then a 22-gauge 3.5-inch spinal needle was atraumatically introduced and advanced under fluoroscopic guidance at each of the corresponding sites at the right L4, L5 and S1 MB. After negative aspiration, 0.2 cc of Isovue 200 was injected, confirming placement without vascular or intrathecal uptake. Subsequently then 0.5 cc of 0.5% Marcaine solution was injected at each of the corresponding sites at the right L4, L5 and S1 medial branch locations. The patient tolerated the procedure well without signs or symptoms of complic ations. The procedure tolerated the procedure well without signs or symptoms of complications prior to transfer to the recovery area continued monitoring without incident. Post-procedure, the patient was monitored initiating provocative activities to measure the amount of relief from block of the facetogenic pain. The patient reported a VAS of 7 prior to the procedure and a post-procedure VAS of 1. It has been a pleasure to assist in the diagnostic and therapeutic care of your patient. POST OP INSTRUCTIONS The patient was provided with a Pain Log to complete over the next several hours and subsequent days prior to the patient's follow up with the ordering physician. 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 The patient is aware, was provided, once again, with a Pain Log and will follow up with the referring physician for review and clinical correlation.
== END 2020-09-13 15:51 | disposition home or self-care (01) ==
LOC: RAD 14:59
PROVIDERS: Family Provider Internal Medicine; PCP Family Medicine; Referring Provider Physical Medicine & Rehabilitation; Visit Provider Physical Medicine & Rehabilitation
DX: M47.27 Other spondylosis with radiculopathy, lumbosacral region (principal); M47.817 Spondylosis without myelopathy or radiculopathy, lumbosacral region
CPT/HCPCS: 64493; 64494; 99152; J2250; J3010

== ENCOUNTER → 2020-10-30 06:59 | Outpatient (CLI) | payer MEDICARE, SELFPAY ==
[2020-10-30 13:03] LABS: COVID19 -Nasal RAPID Negative (Negative)
== END ==
PROVIDERS: Family Provider Internal Medicine; PCP Family Medicine; Visit Provider Physical Medicine & Rehabilitation
DX: Z20.822 Contact with and (suspected) exposure to COVID-19 (principal)
CPT/HCPCS: 87635; C9803

== ENCOUNTER 2020-11-01 10:44 | Outpatient (CLI) | payer MEDICARE, SELFPAY ==
[2020-11-01] VITALS (9 sets, daily range): BP systolic 93–162; BP diastolic 54–93; PULSE 58–82; RESP 14–20; TEMP 36.6; O2SAT 96–100
--- NOTE | 2020-11-01 10:48 | DI.RAD.S_ITS ---
PROCEDURE: PAIN L/S MED/LAT N RFA INDICATIONS: SPONDYLOSIS COMPARISON: [facility], , PAIN L/S MED/LAT N RFA, 04/22/2019, 8:16. FINDINGS: Fluoroscopic spot filming was performed to verify placement of spinal needles at the L4, L5, S1 level(s), as labeled on the films. Appropriate location(s) of the needle tip(s) was confirmed by injection of iodinated contrast. Dictated by: Ankit Snell M.D. on 11/01/2020 at 13:12 Approved by: Ankit Snell M.D. on 11/01/2020 at 13:13
[2020-11-01] MEDS: MIDAZOLAM 5 MG/5 ML VIAL IV (11:45)
[2020-11-01] MEDS: fentaNYL 100 MCG/2 ML INJ 50 MCG IV (11:45)
[2020-11-01] MEDS: BUPIVACAINE 0.5% (PF) VIAL 5 ML INJ (11:56)
[2020-11-01] MEDS: LIDOCAINE 1% 20 ML 10 ML INJ (11:59)
--- NOTE | 2020-11-01 12:04 | P.PCN_ITS ---
Date/Time/Diagnoses Date of procedure: 11/01/20 Time of procedure: 12:04 Pre-procedure diagnosis: 1. RECALCITRANT FACET ARTHROPATHY Post-procedure diagnosis: same Procedure Notes Procedure: 1. RIGHT L4 AND L5 MEDIAL BRANCH RADIOFREQUENCY NEUROTOMY AND RIGHT S1 DORSAL RAMUS BRANCH RADIOFREQUENCY NEUROTOMY Indications: Minh is referred by Dr. Dickey for treatment of facet arthropathy. Physician: Jayme Gomes Total Fluoroscopy time (seconds): 9 Total sedation minutes: 18 Complications: none Procedure in detail & Post-procedure care: DESCRIPTION OF PROCEDURE Right L4 and L5 medial branch radiofrequency neurotomy and right S1 dorsal ramus branch radiofrequency neurotomy under fluoroscopy with conscious sedation. The patient is well known to this clinic having undergone previous facet injections with good but temporary relief. The patient has experienced appropriate, concordant relief with previous facet and median branch blocks but the patient's pain has been recalcitrant to further conservative measures. Therefore, based upon the patient's relief and persistent symptoms, the patient is considered an appropriate candidate for facet rhizotomy. All of the patient's questions regarding the risks versus benefits of the procedure, including, but not limited to, bleeding, infection, temporary as well as lasting nerve injury, paralysis, stroke, and , as well treatment alternatives were answered to satisfaction. After review of previous anaesthesic history and IV conscious sedation the patient was deemed safe to proceed with today?s procedure with IV conscious sedation as ASA class II designation. Safety time-out was performed to confirm patient ID, procedure to be performed and site of procedure. IV sedation was accomplished with a combination of 3mg of Versed and 50mcg of Fentanyl was administered by the RN after DO order, titrated to patient comfort during the course of the procedure while the patient remained responsive to all verbal commands. After obtaining informed consent, denial of pertinent drug allergies, as well as being made aware of the potential risks of bleeding, infection, spinal cord trauma, paralysis, temporary and permanent nerve damage, seizure, stroke, and possible , the patient was brought to the fluoroscopy suite and positioned prone on the fluoroscopy table. The lumbar region was prepped with Betadine and covered with a fenestrated drape in the usual sterile fashion. Appropriate monitors applied including pulse oximeter, pulse, and blood pressure for regular monitoring throughout the procedure. After local infiltration using 1% lidocaine, under fluoroscopic guidance, a 10- cm RF insulated needle with a 10-mm active tip was positioned parallel to the junction of the right sacral ala and the superior articulating process where the S1 dorsal ramus resides. Needle placement was confirmed with sensory stimulation at 50 Hz, with motor stimulation of .5v on the right which produced local stimulation without radicular component. The stimulation was then increased to 2v with, once again, only local multifidus stimulation without radicular component. This was then followed by two discreet lesions performed at 80 degrees Celsius for 90 seconds each. The needle was then removed and the identical procedure was performed along the length of the right L5 medial branch with motor stimulation at .7v on the right. The identical procedure was once again performed along the length of the right L4 medial branch with motor stimulation of .5v on the right. The patient tolerated the procedure well without signs or symptoms of complications prior to transfer to the recovery area continued monitoring without incident. The patient was then transferred to the recovery area where they were observed for an appropriate period of time after the injection. The patient was then transferred to the recovery area where they were observed for an appropriate period of time after the injection. The patient reported a VAS score of 8 prior to the procedure and a post- procedure VAS of 0. POST OP INSTRUCTIONS The patient was provided a Pain Log to continue to record the patient's response to the target-specific procedure prior to the patient's follow-up visit with the referring physician. Additionally, specific post-injection care instructions and a contact number to our office were provided if concerns arise regarding possible complications associated with the procedure are suspected.
== END 2020-11-01 12:20 | disposition home or self-care (01) ==
LOC: RAD 10:47
PROVIDERS: Family Provider Internal Medicine; PCP Family Medicine; Referring Provider Physical Medicine & Rehabilitation; Visit Provider Physical Medicine & Rehabilitation
DX: M47.817 Spondylosis without myelopathy or radiculopathy, lumbosacral region (principal); M47.816 Spondylosis without myelopathy or radiculopathy, lumbar region
CPT/HCPCS: 64635; 64636; 99152; J2250; J3010

== ENCOUNTER → 2021-02-22 16:11 | Outpatient (CLI) | payer MEDICARE, SELFPAY ==
[2021-02-22 18:28] LABS: Prostate Specific Antigen 1.74 ng/mL (0.10-4.00)
== END ==
PROVIDERS: Family Provider Internal Medicine; PCP Family Medicine; Referring Provider Specialist; Visit Provider Specialist
DX: R33.9 Retention of urine, unspecified (principal); N40.1 Benign prostatic hyperplasia with lower urinary tract symptoms; N13.8 Other obstructive and reflux uropathy
CPT/HCPCS: 36415; 84153

== ENCOUNTER → 2021-02-26 09:33 | Outpatient (CLI) | payer MEDICARE, SELFPAY | PROVIDERS: Family Provider Internal Medicine; PCP Family Medicine; Visit Provider Specialist | DX: R30.0 Dysuria (principal); N40.1 Benign prostatic hyperplasia with lower urinary tract symptoms; N13.8 Other obstructive and reflux uropathy; R33.9 Retention of urine, unspecified; Z80.42 Family history of malignant neoplasm of prostate | CPT/HCPCS: 51798; 81002; 87077; 87086; 87147; 87186; 99214 ==

== ENCOUNTER → 2021-06-21 07:26 | Outpatient (CLI) | payer MEDICARE, SELFPAY ==
[2021-06-21 09:01] LABS: Add Manual Diff / Slide Review NO; Basophils Absolute Auto 0 /uL (0-100); Basophils Percent Auto 0.4 % (0-2); Eosinophils Absolute Auto 100 /uL (0-450); Eosinophils Percent Auto 0.8 % (2-4); Hemoglobin 13.8 g/dL (13.5-17.5); Lymphocytes Absolute Auto 1300 /uL (1100-4500); Lymphocytes Percent Auto 18.3 % (25-40); Mean Corpuscular HGB Conc 35.3 % (30-36); Mean Corpuscular Hemoglobin 34.4 PG (26-34); Mean Corpuscular Volume 97.4 fL (80-100); Monocytes Absolute Auto 500 /uL (0-900); Monocytes Percent Auto 7.5 % (3-14); Neutrophils Absolute Auto 5200 /uL (1500-7000); Platelet Count 107 X10^3/uL (150-400); Red Cell Distribution Width 12.6 % (11.6-14.8); White Blood Cell Count 7.1 X10^3/uL (4.5-11.0)
[2021-06-21 09:33] LABS: Alanine Aminotransferase 4 IU/L (<50); Albumin 3.9 g/dL (3.5-5.0); Albumin Globulin Ratio 1.6 (1.0-2.8); Alkaline Phosphatase 87 U/L (38-126); Aspartate Aminotransferase 24 IU/L (17-59); Bilirubin Total 0.5 mg/dL (0.2-1.3); Blood Urea Nitrogen 16 mg/dL (9-20); Calcium 9.4 mg/dL (8.4-10.2); Carbon Dioxide 28 mmol/L (22-32); Chloride 103 mmol/L (98-107); Cholesterol 131 mg/dL (140-199); Estimated Glomerular Filt Rate > 60.0 mL/min (>60); Globulin 2.5 g/dL (1.7-4.1); Glucose 87 mg/dL (80-110); HDL Cholesterol 57 mg/dL (40-60); HEMOLYSIS < 15 (0-50); LDL Cholesterol Calculated 60 mg/dL (<100); Potassium 4.2 mmol/L (3.4-5.1); Sodium 137 mmol/L (137-145); Total Protein 6.4 g/dL (6.3-8.2); Triglycerides 70 mg/dL (35-150)
[2021-06-21 09:58] LABS: Prostate Specific Antigen Scrn 4.13 ng/mL (0.1-4.0)
[2021-06-21 10:17] LABS: Vitamin B12 622 pg/mL (239-931)
== END ==
PROVIDERS: Family Provider Internal Medicine; PCP Family Medicine; Referring Provider Family Medicine; Visit Provider Family Medicine
DX: N13.8 Other obstructive and reflux uropathy (principal); Z12.5 Encounter for screening for malignant neoplasm of prostate; G20 Parkinson's disease; N40.1 Benign prostatic hyperplasia with lower urinary tract symptoms; Z00.00 Encounter for general adult medical examination without abnormal findings
CPT/HCPCS: 36415; 80053; 80061; 82607; 85025; G0103

== ENCOUNTER → 2021-08-15 09:54 | Outpatient (CLI) | payer MEDICARE, SELFPAY ==
[2021-08-15 12:05] LABS: Prostate Specific Antigen 1.86 ng/mL (0.10-4.00)
== END ==
PROVIDERS: Family Provider Internal Medicine; PCP Family Medicine; Referring Provider Specialist; Visit Provider Specialist
DX: Z87.898 Personal history of other specified conditions (principal)
CPT/HCPCS: 36415; 84153

== ENCOUNTER → 2021-08-21 09:57 | Outpatient (CLI) | payer MEDICARE, SELFPAY | PROVIDERS: Family Provider Internal Medicine; PCP Family Medicine; Visit Provider Specialist | DX: N40.1 Benign prostatic hyperplasia with lower urinary tract symptoms (principal); N13.8 Other obstructive and reflux uropathy; R30.0 Dysuria; R33.9 Retention of urine, unspecified; Z80.42 Family history of malignant neoplasm of prostate; Z87.898 Personal history of other specified conditions | CPT/HCPCS: 51798; 81002; 87077; 87086; 87186; 99215 ==

== ENCOUNTER → 2021-10-25 12:25 | Outpatient (CLI) | payer MEDICARE, SELFPAY ==
--- NOTE | 2021-10-25 12:26 | DI.RAD.S_ITS ---
PROCEDURE: XR ELBOW LT MIN 3V INDICATIONS: LEFT ELBOW PAIN TECHNIQUE: 3 views of the elbow were acquired. COMPARISON: None. FINDINGS: Bones: No fractures or dislocations. No suspicious bony lesions. Soft tissues: No elbow joint effusion. No suspicious soft tissue calcifications. IMPRESSION: No acute elbow fracture or dislocation. No significant joint effusion. Dictated by: Andrew Aj M.D. on 10/25/2021 at 15:08 Approved by: Andrew Aj M.D. on 10/25/2021 at 15:08
== END ==
PROVIDERS: Family Provider Internal Medicine; PCP Family Medicine; Referring Provider Family Medicine; Visit Provider Family Medicine
DX: M25.522 Pain in left elbow (principal)
CPT/HCPCS: 73080

== ENCOUNTER → 2021-12-30 10:39 | Outpatient (CLI) | payer MEDICARE, SELFPAY | PROVIDERS: Family Provider Internal Medicine; PCP Family Medicine; Referring Provider Internal Medicine Gastroenterology; Visit Provider Internal Medicine Gastroenterology | DX: R19.7 Diarrhea, unspecified (principal) | CPT/HCPCS: 36415; 86231; 86258 ==

== ENCOUNTER → 2022-01-03 10:38 | Outpatient (CLI) | payer MEDICARE, SELFPAY ==
[2022-01-04 15:48] LABS: Fats, Neutral Normal (.); Fats, Total Normal (.)
[2022-01-09 20:57] LABS: Pancreatic Elastase, Fecal 166 (>200)
== END ==
PROVIDERS: Family Provider Internal Medicine; PCP Family Medicine; Referring Provider Internal Medicine Gastroenterology; Visit Provider Internal Medicine Gastroenterology
DX: R19.7 Diarrhea, unspecified (principal)
CPT/HCPCS: 82656; 82705

== ENCOUNTER → 2022-02-11 14:46 | Outpatient (CLI) | payer MEDICARE, SELFPAY ==
[2022-02-11 17:38] LABS: Prostate Specific Antigen 1.87 ng/mL (0.10-4.00)
== END ==
PROVIDERS: Family Provider Internal Medicine; PCP Family Medicine; Referring Provider Specialist; Visit Provider Specialist
DX: R97.20 Elevated prostate specific antigen [PSA] (principal)
CPT/HCPCS: 36415; 84153

== ENCOUNTER → 2022-02-18 11:23 | Outpatient (CLI) | payer MEDICARE, SELFPAY | PROVIDERS: Family Provider Internal Medicine; PCP Family Medicine; Visit Provider Specialist | DX: N13.8 Other obstructive and reflux uropathy (principal); N40.1 Benign prostatic hyperplasia with lower urinary tract symptoms; R33.9 Retention of urine, unspecified; Z80.42 Family history of malignant neoplasm of prostate | CPT/HCPCS: 51798; 81002; 87077; 87086; 87186; 99214 ==

== ENCOUNTER → 2022-04-01 10:54 | Outpatient (CLI) | payer MEDICARE, SELFPAY ==
--- NOTE | 2022-04-01 | DI.RAD.S_ITS ---
PROCEDURE: FL BARIUM SWALLOW INDICATIONS: PARKINSONS DISEASE COMPARISON: [facility], CR, XR ELBOW LT MIN 3V, 10/25/2021, 12:44. FINDINGS: Function: There is normal esophageal peristalsis. Mild gastroesophageal reflux was elicited during exam. There is normal transit of a calibrated barium tablet through the esophagus into the stomach. Morphology: Air-contrast images demonstrate normal mucosal morphology. Single contrast views show no esophageal strictures, extrinsic mass effects, or diverticula. There is a small hiatal hernia. Limited images of the stomach demonstrate normal appearance. IMPRESSION: 1. Mild gastroesophageal reflux. 2. Small hiatal hernia. Dictated by: Renee Miller M.D. on 04/01/2022 at 13:25 Approved by: Renee Miller M.D. on 04/01/2022 at 13:28
== END ==
PROVIDERS: Family Provider Internal Medicine; PCP Family Medicine; Referring Provider Internal Medicine; Visit Provider Internal Medicine
DX: G20 Parkinson's disease (principal); K21.9 Gastro-esophageal reflux disease without esophagitis; K44.9 Diaphragmatic hernia without obstruction or gangrene; N40.1 Benign prostatic hyperplasia with lower urinary tract symptoms; N13.8 Other obstructive and reflux uropathy; R33.9 Retention of urine, unspecified; Z80.42 Family history of malignant neoplasm of prostate
CPT/HCPCS: 51798; 74220; 99215

== ENCOUNTER → 2022-05-02 10:51 | Outpatient (CLI) | payer MEDICARE, SELFPAY ==
[2022-05-02 12:01] LABS: COVID19 -Nasal RAPID Negative (Negative)
== END ==
PROVIDERS: Family Provider Internal Medicine; PCP Family Medicine; Visit Provider Specialist
DX: Z20.822 Contact with and (suspected) exposure to COVID-19 (principal)
CPT/HCPCS: 87635

== ENCOUNTER 2022-05-05 07:46 | Day surgery (SDC) | payer MEDICARE, SELFPAY ==
[2022-05-05 08:08] VITALS: BP 125/69; PULSE 74; RESP 16; TEMP 36.4; O2SAT 98; BMI 22.2
[2022-05-05] MEDS: LACTATED RINGERS 1,000 ML 21 ML IV (08:18)
--- NOTE | 2022-05-05 09:28 | PM.PREOP ---
Pre-operative Note COVID-19 Criteria for continued procedure: Expected advancement of disease process, Increased loss of function, Deterioration of the patient's condition or overall health, Delay expected to result in less-positive ultimate med/surg outcome and Non-surgical alternatives not available or appropriate per current SOC Interval Note History & Physical reviewed/Exam performed by Physician: Yes Changes to H&P: No
[2022-05-05] MEDS: AMPICILLIN/SULBACTAM 3 GM 3 GM in SODIUM CHLORIDE 0.9% 100 ML IV (10:05)
--- NOTE | 2022-05-05 10:15 | SUR.OPER ---
Lithotomy on padded OR bed, head on pillow, arms secured on padded arm boards at <90 degrees abduction. Legs secured in padded yellow fins stirrups.
[2022-05-05] MEDS: GENTAMICIN 160 MG in SODIUM CHLORIDE 0.9% 100 ML 104 MG IV (10:20)
--- NOTE | 2022-05-05 10:57 | P.OP_ITS ---
Operative Date/Time/Diagnoses Date of procedure: 05/05/22 Time of procedure: 10:45 Pre-op diagnosis: 1. Urinary retention. 2. Bladder outlet obstruction. 3. Failure of medical therapy and previous Uro lift procedure. Post-op diagnosis: same Procedure & Clinicians Procedure: 1. Transurethral resection of prostate (button electrode). Same procedure as scheduled: Yes Indications: 1. Urinary retention. 2. Bladder outlet obstruction. 3. Failure medical therapy and previous Uro lift procedure. Surgeon: Howard Chavez Click Yes if Unassisted: Yes Anesthesia Type: Spinal Operative Notes Findings: 1. Urethra normal caliber without annular stricture or lesion. 2. External sphincter-coapted with normal overlying urothelium. 3. Prostate-3.5 cm length with moderately obstructing trilobar hyperplasia and elevated median bar. 4. Bladder-severe trabeculation and cellule formation. Normal ureteral orifices bilaterally with clear efflux. No stone, neoplasm, or diverticulum seen. Closure Type: not applicable Specimen(s): none sent Applied: catheter (#22F [address] way hematuria catheter to gravity drainage.) Estimated Blood Loss (mL): 5 Blood products transfused: none Procedure in detail: The patient was positioned in supine following placement of spinal anesthesia. He was then positioned in semi lithotomy and the lower abdomen, genitalia, and groin were then prepped and draped in sterile fashion. The resectoscope was then advanced lower urinary tract under direct visualization with the findings as described above. The button electrode was then selected and fitted to the working resectoscope element. Incisional resection lines were then made at 4 and 8:00 a.m. positions from the bladder neck to verumontanum. Depth was to the surgical capsule. The intervening median lobe was then resected in the same man ner. A limited amount of additional lateral resection was required on both the right and left again from bladder neck to the level of the verumontanum. Intraoperative photographs were obtained reflecting intraoperative and post resection findings. Bladder neck was widely patent. Hemostasis was then obtained with the button electrode. A small amount of debris was irrigated from the bladder lying dependently at its floor. The bladder was then partially refilled and the resectoscope was removed. A 22 Bengali to a hematuria catheter was then advanced into the bladder over a catheter guide. The balloon was inflated to 30 cc and the catheter was irrigated to a very light pink tinge without clot. It was then connected to gravity drainage. The patient was then repositioned in supine, was transferred to [facility], was transferred to recovery in stable condition. Complications: none Post-operative Condition: stable Disposition: PACU Plan for aftercare: Discharge home.
[2022-05-05 11:02] VITALS: BP 100/63; PULSE 53; RESP 14; TEMP 36.7; O2SAT 99
[2022-05-05 11:07] VITALS: BP 96/59; PULSE 53; RESP 16; O2SAT 99
[2022-05-05 11:12] VITALS: BP 112/68; PULSE 59; RESP 17; TEMP 36.2; O2SAT 100
[2022-05-05 11:17] VITALS: BP 112/68; PULSE 59; RESP 23; TEMP 36.1
[2022-05-05 11:21] LABS: Appearance Urine UA SL CLOUDY; Bilirubin Urine UA NEGATIVE (NEGATIVE); Color Urine UA YELLOW; Glucose Urine UA NEGATIVE (Negative); Ketones Urine UA NEGATIVE (NEGATIVE); Leukocyte Esterase Urine UA TRACE (NEGATIVE); Nitrite Urine UA NEGATIVE (Negative); Occult Blood Urine UA 3+ (Negative); Protein Urine UA NEGATIVE (Negative); Urobilinogen Urine UA 0.2 E.U./dL (0.2); pH Urine UA 7.5 (4.5-8.0)
[2022-05-05 11:27] VITALS: BP 122/63; PULSE 59; RESP 17; TEMP 36.1; O2SAT 99
[2022-05-05 11:51] LABS: Amorphous Sediment Urine 1+; Bacteria Urine Many (>30); Culture Indicated Urine Specimen Cultured; RBC Urine 30-100/HPF (0-5/HPF); Squamous Epithelial Cell Urine None Seen (0-5/HPF); WBC Urine 0-1/HPF (0-5/HPF)
== END 2022-05-05 12:20 | disposition home or self-care (01) ==
LOC: OR 07:48 → AC 07:50
PROVIDERS: Family Provider Internal Medicine; PCP Family Medicine; Referring Provider Specialist; Visit Provider Specialist
PROC: 0VT08ZZ Resection of Prostate, Via Natural or Artificial Opening Endoscopic (ICD-10-PCS; CPT 52601; principal; 2022-05-05 09:15)
DX: R33.9 Retention of urine, unspecified (principal); N32.0 Bladder-neck obstruction; N40.0 Benign prostatic hyperplasia without lower urinary tract symptoms; Z80.42 Family history of malignant neoplasm of prostate
CPT/HCPCS: 52601; 81001; 87077; 87086; 87186; J0295; J1100; J2405; J2704; J3010

== ENCOUNTER 2022-05-07 00:35 | Emergency (ER) | payer MEDICARE, SELFPAY ==
[2022-05-07 00:38] VITALS: BP 176/73; PULSE 80; RESP 18; TEMP 36.6; O2SAT 99; BMI 22.2
--- NOTE | 2022-05-07 03:01 | ED.MALEGU ---
HPI - Male Genitourinary General Chief complaint: Urogenital-Male Stated complaint: bladder is full has catheter and it hurts Time Seen by Provider: 05/07/22 00:37 Source: patient Mode of arrival: Ambulatory History of Present Illness HPI Narrative: 76-year-old male nonsmoker with history of BPH and recent TURP and salcido catheter placement presents with his and chief complaint of salcido not draining over the night. He has an appointment to get the salcido removed at the urology office later this morning. He states it had been flowing appropriately and then over the night it seems to have backed up, he has some minimal suprapubic tenderness but denies any dizziness, weakness or lightheadedness. He has no fever chills nor nausea or vomiting. He denies any back pain. Related Data Home Medications Medication Instructions Recorded Confirmed aspirin 81 mg tablet,delayed 81 mg PO DAILY 08/17/20 05/05/22 release carbidopa 25 mg-levodopa 100 mg 1 tab PO TID 02/26/21 05/05/22 disintegrating tablet Previous Rx's Medication Instructions Recorded tamsulosin 0.4 mg capsule 0.8 mg PO BEDTIME #180 caps 10/08/21 finasteride 5 mg tablet 5 mg PO DAILY #90 tabs 01/02/22 atorvastatin 10 mg tablet See Rx Instructions .Route 03/17/22 .COMPLEX #90 tabs oxycodone 5 mg tablet 5 mg PO Q4H PRN pain #10 tabs 05/05/22 sulfamethoxazole 400 1 tab PO BID #6 tabs 05/05/22 mg-trimethoprim 80 mg tablet (Bactrim) Allergies Allergy/AdvReac Type Severity Reaction Status Date / Time No Known Drug Allergies Allergy Verified 04/24/22 11:26 Review of Systems Review of Systems Narrative: GENERAL: Denies chills, fatigue, malaise, fever, sweats. HEENT: Denies sinus pain, ear pain, sore throat, difficulty swallowing, dizziness. RESPIRATORY: Denies dyspnea, cough, wheezing, hemoptysis, sputum. CARDIOVASCULAR: Denies chest pain, palpitations, orthopnea, edema, GASTROINTESTINAL: Denies nausea, vomiting, abdominal pain, diarrhea, constipation, melena. : D see HPI MUSCULOSKELETAL: denies weakness, joint pain, or bony pain SKIN: Denies rash, skin lesions, or other NEUROLOGIC: Denies weakness, headache, numbness, change in speech, confusion, seizures, incoordination. PSYCHIATRIC: No concerning psychosocial issues. 12 point review of systems is negative except for those stated above Patient History Medical History Abdominal pain Arthritis BPH (benign prostatic hyperplasia) BPH w urinary obs/LUTS BPH w urinary obs/LUTS Chronic back pain (~2018) Dog bite of left arm Elevated PSA Family history of prostate cancer in father Hearing loss History of elevated PSA (~2019) Incomplete bladder emptying Inguinal hernia Left elbow pain Measles (~1949) Mumps (~1949) Nontraumatic coccydynia Osteoarthritis Parkinsons Urinary retention Weight loss, non-intentional (~2019) Well adult exam Surgical History Anesthesia History of appendectomy (~1958) History of intestinal surgery (~1998) Status post appendectomy Status post hernia repair (~2004) Status post inguinal hernia repair (08/26/16) Family History Father Primary amyloidosis Mother Cancer Grandfather Parkinson's disease Grandmother Dementia Social History household members: spouse Smoking Status: Never smoker alcohol intake: current Smoking Status: Never smoker alcohol intake frequency: 0-2 drinks per day Substance Use Type: does not use Exam Narrative Exam Narrative: GEN: AOx3 and in mild distress EYES: Pupils are equal, round, and reactive to light and accommodation. Extraoccular muscles are intact bilaterally. There is no subconjunctival hemorrhage or exudate. CHEST: Lungs are clear to auscultation bilaterally and free of wheezes, rales, or rhonchi. Heart rate is regular rhythm, there are no murmurs, clicks, rubs, or gallops. There is no chest wall tenderness. ABD: Abdomen is soft and nontender. There is no guarding or rebound. Bowel sounds are normal in all 4 quadrants. There is no mass or organomegaly. EXT: Full painless ROM of all extremities with no loss of sensation or strength. SKIN: Warm, pink, and dry. No erythema or rash Initial Vital Signs Initial Vital Signs: Vital Signs Temperature 97.8 F 11/23/22 00:38 Pulse Rate 80 05/07/22 00:38 Respiratory Rate 18 05/07/22 00:38 Blood Pressure 176/73 H 05/07/22 00:38 Pulse Oximetry 99 05/07/22 00:38 Oxygen Delivery Method 05/07/22 00:38 Course Vital Signs Vital signs: Vital Signs - 8 hr 05/07/22 00:38 Temperature 97.8 F Pulse Rate 80 Respiratory Rate 18 Blood Pressure 176/73 H Pulse Oximetry 99 Oxygen Delivery Method Room Air MDM - Male Genitourinary MDM Narrative Medical decision making narrative: Nursing staff have assessed, flushed Salcido it is flowing appropriately, bedside ultrasound notes an empty bladder and there is no evidence of retention. Patient feeling well, has an appointment a few hours, given return precautions and questions answered to his apparent satisfaction Discharge Plan Departure Patient Disposition: Home Clinical Impression: Complication of Salcido catheter Instructions: How to Care for Your Salcido Catheter -- Male Activity Restrictions/Additional Instructions: *You have been diagnosed with [salcido catheter problem. Thankfully it is functioning fine now and there is no evidence of retention ] *What to do: *Please continue to take your regular medications as directed. *Please follow up with your urologist at 0815 as planned *Return to Emergency Department if you should have any new, worsening or concerning symptoms Prescriptions: No Action tamsulosin 0.4 mg capsule 0.8 mg PO BEDTIME Qty: 180 3RF finasteride 5 mg tablet 5 mg PO DAILY Qty: 90 3RF atorvastatin 10 mg tablet See Rx Instructions .ROUTE .COMPLEX Qty: 90 0RF Dose Instruction: TAKE ONE TABLET BY MOUTH NIGHTLY AT BEDTIME Rx Instructions: TAKE ONE TABLET BY MOUTH NIGHTLY AT BEDTIME oxycodone 5 mg tablet 5 mg PO Q4H PRN (Reason: pain) Qty: 10 0RF sulfamethoxazole-trimethoprim [Bactrim] 400-80 mg tablet 1 tab PO BID Qty: 6 0RF Rx Instructions: Take 1st tablet in the morning, the day before scheduled catheter removal. aspirin 81 mg tablet,delayed release (DR/EC) 81 mg PO DAILY carbidopa-levodopa 25-100 mg tablet,disintegrating 1 tab PO TID Referrals: Albert Dickey, [Primary Care Provider] - Visit Report Forms: Patient Portal/API
== END 2022-05-07 01:27 | disposition home or self-care (01) ==
PROVIDERS: Emergency Provider Emergency Medicine; Family Provider Internal Medicine; PCP Family Medicine
DX: T83.9XXA Unspecified complication of genitourinary prosthetic device, implant and graft, initial encounter (principal)
CPT/HCPCS: 51798; 99282

== ENCOUNTER → 2022-06-18 11:35 | Outpatient (CLI) | payer MEDICARE, SELFPAY | PROVIDERS: Family Provider Internal Medicine; PCP Family Medicine; Visit Provider Specialist | DX: N13.8 Other obstructive and reflux uropathy (principal); N40.1 Benign prostatic hyperplasia with lower urinary tract symptoms; R33.9 Retention of urine, unspecified; Z80.42 Family history of malignant neoplasm of prostate | CPT/HCPCS: 51798; 81002; 87077; 87086; 99215 ==

== ENCOUNTER → 2022-09-25 15:34 | Outpatient (CLI) | payer MEDICARE, SELFPAY ==
[2022-09-25 16:29] LABS: BUN Creatinine Ratio 13.8 (6-22); Blood Urea Nitrogen 13 mg/dL (9-20); Estimated Glomerular Filt Rate > 60 mL/min (>60)
== END ==
PROVIDERS: Family Provider Internal Medicine; PCP Family Medicine; Referring Provider Internal Medicine Gastroenterology; Visit Provider Internal Medicine Gastroenterology
DX: R14.0 Abdominal distension (gaseous) (principal); R10.9 Unspecified abdominal pain
CPT/HCPCS: 36415; 82565; 84520

== ENCOUNTER → 2022-09-30 08:30 | Outpatient (CLI) | payer MEDICARE, SELFPAY ==
--- NOTE | 2022-09-30 | DI.CT.S_ITS ---
PROCEDURE: CT ABDOMEN PELVIS W CON INDICATIONS: ABDOMINAL PAIN/DIARRHEA/CONSTIPATION/BLOATING TECHNIQUE: After the administration of oral and intravenous contrast, axial sections were acquired from the lung bases to the pubic symphysis. Coronal and sagittal reformats were performed. For radiation dose reduction, the following was used: automated exposure control, adjustment of mA and/or kV according to patient size. COMPARISON:Located Within [facility], CT, CT ABDOMEN PELVIS WITH CONTRAST, 08/08/2021, 11:20. [facility], CT, ABDOMEN/PELVIS WITH CONTRAST, 10/10/2016, 9:35. FINDINGS: Lung bases: No pleural effusion ABDOMEN: Liver: A few scattered small hypodensities are present, too small to characterize, but similar to before. Gallbladder: Unremarkable. Biliary ducts: Unremarkable. Pancreas: Possible pancreas divisum variant anatomy. Otherwise unremarkable. Spleen: Unremarkable. Adrenal Glands: Unremarkable. Kidneys and Ureters: No hydronephrosis Stomach and Bowel: No evidence of mechanical small bowel obstruction. Large amount of stool present in the colon. Scattered colonic diverticula without evidence of acute diverticulitis identified Peritoneum: No abnormal intraperitoneal fluid. No free air. Abdominal Nodes: No retroperitoneal or mesenteric adenopathy by size criteria. Vessels: Aorta and inferior vena cava are normal in size. PELVIS: Pelvic Organs: Metallic markers present about the prostate gland, possible fiducial markers. Bladder: Unremarkable. Pelvic Nodes: No enlarged lymph nodes. Bones: Multilevel degenerative change of the visualized spine. IMPRESSION: No definite acute abnormality identified within the abdomen or pelvis. Dictated by: Ovi Cuevas M.D. on 09/30/2022 at 15:36 Approved by: Ovi Cuevas M.D. on 09/30/2022 at 15:48
== END ==
PROVIDERS: Family Provider Internal Medicine; PCP Family Medicine; Referring Provider Internal Medicine Gastroenterology; Visit Provider Internal Medicine Gastroenterology
DX: R10.9 Unspecified abdominal pain (principal); R19.7 Diarrhea, unspecified; K59.00 Constipation, unspecified; R14.0 Abdominal distension (gaseous)
CPT/HCPCS: 74177; Q9967

== ENCOUNTER → 2022-10-09 07:25 | Outpatient (CLI) | payer MEDICARE, SELFPAY ==
[2022-10-09 08:59] LABS: Add Manual Diff / Slide Review NO; Basophils Absolute Auto 0 /uL (0-100); Basophils Percent Auto 0.6 % (0-2); Eosinophils Absolute Auto 100 /uL (0-450); Eosinophils Percent Auto 1.6 % (2-4); Hematocrit 40.4 % (41-53); Hemoglobin 14.2 g/dL (13.5-17.5); Lymphocytes Absolute Auto 1300 /uL (1100-4500); Lymphocytes Percent Auto 25.5 % (25-40); Mean Corpuscular HGB Conc 35.1 % (30-36); Mean Corpuscular Hemoglobin 34.6 PG (26-34); Mean Corpuscular Volume 98.6 fL (80-100); Monocytes Absolute Auto 400 /uL (0-900); Monocytes Percent Auto 7.8 % (3-14); Neutrophils Absolute Auto 3300 /uL (1500-7000); Neutrophils Percent Auto 64.5 % (50-75); Platelet Count 116 X10^3/uL (150-400); White Blood Cell Count 5.1 X10^3/uL (4.5-11.0)
[2022-10-09 09:20] LABS: Alanine Aminotransferase 9 IU/L (<50); Albumin 4.2 g/dL (3.5-5.0); Albumin Globulin Ratio 1.8 (1.0-2.8); Alkaline Phosphatase 96 U/L (38-126); Aspartate Aminotransferase 30 IU/L (17-59); BUN Creatinine Ratio 13.2 (6-22); Bilirubin Total 0.7 mg/dL (0.2-1.3); Blood Urea Nitrogen 12 mg/dL (9-20); Calcium 8.9 mg/dL (8.4-10.2); Carbon Dioxide 29 mmol/L (22-32); Chloride 96 mmol/L (98-107); Cholesterol 150 mg/dL (140-199); Estimated Glomerular Filt Rate > 60 mL/min (>60); Globulin 2.4 g/dL (1.7-4.1); Glucose 89 mg/dL (80-110); HDL Cholesterol 77 mg/dL (40-60); HEMOLYSIS < 15 (0-50); LDL Cholesterol Calculated 63 mg/dL (<100); Potassium 4.2 mmol/L (3.4-5.1); Sodium 133 mmol/L (137-145); Total Protein 6.6 g/dL (6.3-8.2); Triglycerides 48 mg/dL (35-150)
[2022-10-09 09:41] LABS: Prostate Specific Antigen Scrn 1.57 ng/mL (0.1-4.0)
== END ==
PROVIDERS: Family Provider Internal Medicine; PCP Family Medicine; Referring Provider Family Medicine; Visit Provider Family Medicine
DX: E78.00 Pure hypercholesterolemia, unspecified (principal); Z12.5 Encounter for screening for malignant neoplasm of prostate; N40.0 Benign prostatic hyperplasia without lower urinary tract symptoms; Z87.898 Personal history of other specified conditions
CPT/HCPCS: 36415; 80053; 80061; 85025; G0103

== ENCOUNTER → 2022-10-21 10:41 | Outpatient (CLI) | payer MEDICARE, SELFPAY ==
--- NOTE | 2022-10-21 | DI.MRI.S_ITS ---
PROCEDURE: MR ABDOMEN WO/W CON INDICATIONS: PANCREATIC DIVISUM TECHNIQUE: Coronal HASTE, axial 2D FLASH in- and [id number]; axial breath-hold T2 FSE with fat saturation from the hepatic dome to the iliac crests. Oblique coronal thin-slice and radial thick slab HASTE through the biliary system. Dynamic axial VIBE during administration of contrast. Post-contrast coronal VIBE or 2D FLASH with fat saturation from the hepatic dome to the iliac crests. Optional diffusion weighted imaging and ADC may be performed. COMPARISON: [facility], CT, CT ABDOMEN PELVIS W CON, 09/30/2022, 10:11. FINDINGS: Image quality: Mild motion artifact. Lower chest: No basal effusions. Lung bases are not well evaluated on MRI. Solid organs: There are liver cysts. Possible partially exophytic hemangioma in the medial segment 5. Gallbladder is unremarkable. The biliary tree is prominent with the CBD measuring up to 1 cm. There is tapering distally and possible sludge within the CBD. Perigraft pancreas divisum anatomy. No pathologic dilation of the pancreatic duct. Normal intrinsic T1 signal otherwise in the pancreatic parenchyma. Periampullary duodenal diverticulum is present. No splenomegaly. No adrenal nodules. Multiple renal cysts. No hydronephrosis. Vessels and lymph nodes: No abdominal aortic aneurysm. No pathologic adenopathy by size criteria. Bowel and peritoneum: No pathologic ascites or bowel obstruction. Body wall: Unremarkable Bones: No acute or suspicious osseous finding. IMPRESSION: Confirmation of pancreas divisum anatomy. No pathologic dilation of the pancreatic duct. Mildly dilated biliary system, with possible sludge in the CBD, which measures up to 1 cm. There is also a periampullary duodenal diverticulum. If further evaluation is needed, consider ERCP. Other incidental findings as above. Dictated by: Amol La M.D. on 10/21/2022 at 13:21 Approved by: Amol La M.D. on 10/21/2022 at 13:29
== END ==
PROVIDERS: Family Provider Internal Medicine; PCP Family Medicine; Referring Provider Internal Medicine Gastroenterology; Visit Provider Internal Medicine Gastroenterology
DX: Q45.3 Other congenital malformations of pancreas and pancreatic duct (principal); K57.10 Diverticulosis of small intestine without perforation or abscess without bleeding; K83.8 Other specified diseases of biliary tract; K76.89 Other specified diseases of liver; N28.1 Cyst of kidney, acquired
CPT/HCPCS: 74183; A9579

== ENCOUNTER → 2022-10-29 10:13 | Outpatient (CLI) | payer MEDICARE, SELFPAY ==
--- NOTE | 2022-10-29 10:15 | DI.RAD.S_ITS ---
PROCEDURE: XR LUMBAR SPINE MIN 4V INDICATIONS: BACK PAIN TECHNIQUE: 5 views of the lumbar spine were acquired, including bilateral oblique views. COMPARISON: [facility], CR, XR LUMBAR SPINE MIN 4V, 03/28/2020, 10:46. [facility], CR, XR LUMBAR SPINE 2-3V, 07/29/2018, 10:27. FINDINGS: Bones: 5 nonrib-bearing vertebrae are present. Stepwise grade 1 retrolisthesis of L3 on L4, L2 on L3 and L1 on L2. Grade 1 anterolisthesis of L4 on L5 and grade 1 retrolisthesis of L5 on S1. Mild facet arthrosis L4 through S1. Moderate, multilevel disc height loss. Slight rightward curvature of the spine. Soft tissues: Overlying bowel gas pattern is normal. No suspicious soft tissue calcifications. Oblique images: No pars defects. IMPRESSION: Moderate, multilevel degenerative disc disease and lower lumbar facet arthrosis. Multilevel listhesis, as detailed above. This is probably degenerative. Dictated by: Toni Teran M.D. on 10/29/2022 at 11:23 Approved by: Toni Teran M.D. on 10/29/2022 at 11:25
== END ==
PROVIDERS: Family Provider Internal Medicine; PCP Family Medicine; Referring Provider Physical Medicine & Rehabilitation; Visit Provider Physical Medicine & Rehabilitation
DX: M47.26 Other spondylosis with radiculopathy, lumbar region (principal); M47.27 Other spondylosis with radiculopathy, lumbosacral region; M51.16 Intervertebral disc disorders with radiculopathy, lumbar region; M43.16 Spondylolisthesis, lumbar region; M43.17 Spondylolisthesis, lumbosacral region; M51.26 Other intervertebral disc displacement, lumbar region; M54.17 Radiculopathy, lumbosacral region; G89.29 Other chronic pain; M53.3 Sacrococcygeal disorders, not elsewhere classified; G20 Parkinson's disease; M47.817 Spondylosis without myelopathy or radiculopathy, lumbosacral region; Z68.22 Body mass index [BMI] 22.0-22.9, adult
CPT/HCPCS: 72110; 99214

== ENCOUNTER → 2022-12-03 16:04 | Outpatient (CLI) | payer MEDICARE, SELFPAY ==
[2022-12-03 17:28] LABS: Alanine Aminotransferase 14 IU/L (<50); Albumin Globulin Ratio 1.6 (1.0-2.8); Alkaline Phosphatase 102 U/L (38-126); Aspartate Aminotransferase 31 IU/L (17-59); Bilirubin Total 0.6 mg/dL (0.2-1.3); Bilirubin Unconjugated 0.5 mg/dL (0.0-1.1); Globulin 2.5 g/dL (1.7-4.1); HEMOLYSIS < 15 (0-50); Lipase 75 U/L (23-300); Total Protein 6.5 g/dL (6.3-8.2)
[2022-12-03 18:00] LABS: Prostate Specific Antigen 1.79 ng/mL (0.10-4.00)
== END ==
PROVIDERS: Internal Medicine Gastroenterology; Family Provider Internal Medicine; PCP Family Medicine; Referring Provider Specialist; Visit Provider Specialist
DX: R97.20 Elevated prostate specific antigen [PSA] (principal); Q45.3 Other congenital malformations of pancreas and pancreatic duct; R14.0 Abdominal distension (gaseous); R10.9 Unspecified abdominal pain; R14.3 Flatulence; K59.00 Constipation, unspecified; R19.7 Diarrhea, unspecified
CPT/HCPCS: 36415; 80076; 83690; 84153

== ENCOUNTER 2023-03-31 15:18 | Outpatient (CLI) | payer MEDICARE, SELFPAY ==
[2023-03-31] VITALS (8 sets, daily range): BP systolic 111–164; BP diastolic 58–91; PULSE 69–78; RESP 16–22; TEMP 36.7; O2SAT 96–100
--- NOTE | 2023-03-31 15:20 | DI.RAD.S_ITS ---
PROCEDURE: PAIN L/S TRANSFORAMINAL INJECT INDICATIONS: SPONDYLOSIS COMPARISON: None. FINDINGS: Fluoroscopic spot filming was performed to verify placement of spinal needles at the L4-5 level(s), as labeled on the films. Appropriate location(s) of the needle tip(s) was confirmed by injection of iodinated contrast. IMPRESSION: Needle placement overlying L4-5 with contrast. Dictated by: Poonam Koehler M.D. on 03/31/2023 at 21:23 Approved by: Poonam Koehler M.D. on 03/31/2023 at 21:24
[2023-03-31] MEDS: MIDAZOLAM 2 MG/2 ML VIAL IV (15:47)
[2023-03-31] MEDS: iopamidoL 15 ML VIAL 3 ML INJ (15:52)
[2023-03-31] MEDS: BETAMETHASONE 30 MG/5 ML MDV 6 MG INJ (15:52)
[2023-03-31] MEDS: DEXAMETHASONE 10 MG/ML VIAL INJ (15:52)
[2023-03-31] MEDS: BUPIVACAINE 0.25% (PF) VIAL 2 ML INJ (15:53)
--- NOTE | 2023-03-31 16:02 | P.PCN_ITS ---
Date/Time/Diagnoses Date of procedure: 03/31/23 Time of procedure: 16:02 Pre-procedure diagnosis: 1. FORAMINAL STENOSIS WITH LE SYMPTOMS Post-procedure diagnosis: same Procedure Notes Procedure: 1. FLUOROSCOPICALLY GUIDED CONTRAST CONTROLLED TRANSFORAMINAL EPIDURAL STEROID INJECTION - LEFT L4/5 Indications: Kenneth is referred by Dr. iDckey for treatment of Foraminal Stenosis with Left LE Symptoms Physician: Jayme Gomes Total Fluoroscopy time (seconds): 16 Total sedation minutes: 12 Complications: none Procedure in detail & Post-procedure care: FINDINGS Foraminal Nerve Root Compression secondary to disc disease and facet hypertrophy DESCRIPTION OF PROCEDURE Following review of allergy and review of potential side effects and complications, including, but not necessarily limited to, infection, allergic reaction, local tissue breakdown, stroke, temporary or permanent nerve injury, paralysis, and possible , the patient indicated that the patient understood and agreed to proceed. An informed consent document was signed by the patient, witnessed by a nurse, and placed in the patient's chart. Additionally, other treatment options including medications, modalities, and physical therapy were reviewed with the patient. After review of previous anaesthesic history and IV conscious sedation the patient was deemed safe to proceed with today?s procedure with IV conscious sedation as ASA class II designation. Safety time-out was performed to confirm patient ID, procedure to be performed and site of procedure. IV sedation was accomplished with a combination of 2mg of Versed administered by the RN after DO order, titrated to patient comfort during the course of the procedure while the patient remained responsive to all verbal commands In the prone position following sterile prep and drape of the lumbar region, the left L4/5 posterior neuroforamen was identified fluoroscopically. The skin was anesthetized via a 25-gauge 1.5-inch needle with 1% lidocaine solution. At this point, a 25-gauge 3.5-inch spinal needle was atraumatically introduced and advanced under fluoroscopic guidance through the posterior left L4/5 neuroforamen to approximately the anterior aspect of the canal. Depth was confirmed on lateral view. Following negative aspiration, injection of approximately 1.5 cc of Isovue 200 under live fluoroscopy in the AP view confirmed excellent flow along the nerve root, into the epidural space without vascular or intrathecal uptake observed Radiological data, including multiple fluoroscopic views of the lumbosacral spine, reveal a spinal needle at the left L4/5 posterior neuroforamen. Subsequent views show flow of contrast material flowing superiorly and inferiorly along the nerve root confirming epidural flow. Subsequently, a test dose of 1.5 cc of 1% lidocaine solution was administered and patient was observed for two minutes for signs or symptoms of complications, including abdominal pain, shortness of breath, bilateral upper or lower extremity weakness, nausea and vomiting, prior to steroid injection. At this point, a total of 2cc or 10mg of dexamethasone and 6mg of betamethasone was injected without incident. The procedure tolerated the procedure well without signs or symptoms of complications prior to transfer to the recovery area continued monitoring without incident. The patient was then transferred to the recovery area where they were observed for an appropriate time after the injection. The patient reported a VAS score of 7 prior to the procedure and a post- procedure VAS of 1. POST OP INSTRUCTIONS The patient was provided a Pain Log to continue to record their response to the target-specific procedure prior to follow-up visit with their referring physician. Additionally, specific post-injection care instructions and a contact number to our office were provided if concerns arise regarding possible complications associated with the procedure are suspected.
== END 2023-03-31 16:28 | disposition home or self-care (01) ==
PROVIDERS: Family Provider Internal Medicine; PCP Family Medicine; Referring Provider Physical Medicine & Rehabilitation; Visit Provider Physical Medicine & Rehabilitation
DX: M51.16 Intervertebral disc disorders with radiculopathy, lumbar region (principal)
CPT/HCPCS: 64483; 99152; J0702; J1100; J2250; J3490

== ENCOUNTER → 2023-05-23 12:20 | Outpatient (CLI) | payer MEDICARE, SELFPAY ==
--- NOTE | 2023-05-23 12:51 | DI.MRI.S_ITS ---
PROCEDURE: MR LUMBAR SPINE WO CON INDICATIONS: Unspecified abnormalities of gait and mobility TECHNIQUE: Noncontrast sagittal T1 spin echo and T2 fast echo, sagittal STIR, and T2 fast spin echo through the lumbar spine. In cases with scoliosis, additional coronal T2 fast spin echo may be performed. COMPARISON: [facility], MR, MR LUMBAR SPINE WO CON, 10/11/2018, 17:44. FINDINGS: Image quality: Excellent. Alignment and Curvature: Straightening of normal lumbar lordosis. Minimal anterolisthesis of L4 on L5. Minimal retrolisthesis of L5 on S1. Bone Marrow: Marrow is of normal overall signal. No acute vertebral body compression fractures. Spinal Cord: Conus medullaris terminates at the L1 level. Visualized cord demonstrates normal signal and size. Paraspinous Soft Tissues: No paravertebral masses. T12-L1: Normal appearance. L1-L2: Disc desiccation. Mild facet arthropathy. No central canal or neural foraminal stenosis. L2-L3: Disc desiccation and mild height loss with posterior disc bulge. Facet arthropathy. Stable mild central canal stenosis. Stable mild bilateral neural foraminal stenosis. L3-L4: Disc desiccation and height loss with a posterior disc bulge, progressed compared to prior with a new left foraminal superiorly directed disc extrusion. Facet arthropathy and thickening of the ligamentum flavum. Mild epidural lipomatosis. Mild central canal stenosis is progressed. Mild right neural foraminal stenosis is stable. Severe left neural foraminal stenosis is progressed. L4-L5: Disc desiccation, height loss and posterior disc bulge with a new central disc protrusion. Facet arthropathy and thickening of ligamentum flavum. Severe central canal stenosis. Stable mild right neural foraminal stenosis. Mild progression of moderate to severe left neural foraminal stenosis. L5-S1: Disc desiccation height loss. Posterior disc bulge with annular fissure. Stable mild central canal stenosis. Facet arthropathy. Severe right and moderate severe left neural foraminal stenosis. IMPRESSION: 1. Multilevel degenerative changes of the lumbar spine are redemonstrated with progression of the lower lumbar spine. 2. At L3-L4, there is now mild central canal stenosis and severe left neural foraminal stenosis. 3. Mild progression of moderate to severe left neural foraminal stenosis at L4-5. Stable severe central canal stenosis. 4. Severe right neural foraminal stenosis L5-S1 is mildly progressed. Stable moderate to severe left neural foraminal stenosis. Dictated by: Jeffrey Blue M.D. on 05/25/2023 at 9:00 Approved by: Jeffrey Blue M.D. on 05/25/2023 at 9:08
== END ==
PROVIDERS: Family Provider Internal Medicine; PCP Family Medicine; Referring Provider Internal Medicine; Visit Provider Internal Medicine
DX: M47.816 Spondylosis without myelopathy or radiculopathy, lumbar region; M48.061 Spinal stenosis, lumbar region without neurogenic claudication; M48.07 Spinal stenosis, lumbosacral region; I73.9 Peripheral vascular disease, unspecified; R26.9 Unspecified abnormalities of gait and mobility
CPT/HCPCS: 72148

== ENCOUNTER → 2023-06-04 10:16 | Outpatient (CLI) | payer MEDICARE, SELFPAY ==
[2023-06-04 13:11] LABS: Prostate Specific Antigen 1.93 ng/mL (0.10-4.00)
== END ==
PROVIDERS: Family Provider Internal Medicine; PCP Family Medicine; Referring Provider Specialist; Visit Provider Specialist
DX: R97.20 Elevated prostate specific antigen [PSA] (principal)
CPT/HCPCS: 36415; 84153

== ENCOUNTER → 2023-06-09 09:53 | Outpatient (CLI) | payer MEDICARE, SELFPAY | PROVIDERS: Family Provider Internal Medicine; PCP Family Medicine; Visit Provider Specialist | DX: N40.0 Benign prostatic hyperplasia without lower urinary tract symptoms (principal); N39.0 Urinary tract infection, site not specified; R33.9 Retention of urine, unspecified; Z80.42 Family history of malignant neoplasm of prostate | CPT/HCPCS: 51798; 81002; 87077; 87086; 87186; 99214 ==

== ENCOUNTER 2023-08-06 10:15 | Emergency (ER) | payer MEDICARE, SELFPAY ==
[2023-08-06] VITALS (13 sets, daily range): BP systolic 93–157; BP diastolic 61–123; PULSE 54–72; RESP 12–32; TEMP 36; O2SAT 97–100; BMI 22.2
--- NOTE | 2023-08-06 10:28 | DI.RAD.S_ITS ---
PROCEDURE: XR CHEST 1V INDICATIONS: chest pain TECHNIQUE: One view of the chest was acquired. COMPARISON: None. FINDINGS: Surgical changes and devices: None. Lungs and pleura: Lungs are clear. No pleural effusions or pneumothorax. Mediastinum: Mediastinal contours appear normal. Heart size is normal. Bones and chest wall: No suspicious bony lesions. Overlying soft tissues appear unremarkable. IMPRESSION: No acute cardiopulmonary abnormality is seen. Dictated by: Elizabeth Vegas M.D. on 08/06/2023 at 11:15 Approved by: Elizabeth Vegas M.D. on 08/06/2023 at 11:15
[2023-08-06 11:15] LABS: Add Manual Diff / Slide Review NO; Basophils Absolute Auto 0 /uL (0-100); Basophils Percent Auto 0.4 % (0-2); Eosinophils Absolute Auto 0 /uL (0-450); Eosinophils Percent Auto 0.4 % (2-4); Hematocrit 39.9 % (41-53); Hemoglobin 13.8 g/dL (13.5-17.5); Lymphocytes Absolute Auto 700 /uL (1100-4500); Lymphocytes Percent Auto 9.7 % (25-40); Mean Corpuscular HGB Conc 34.6 % (30-36); Mean Corpuscular Hemoglobin 35.5 PG (26-34); Mean Corpuscular Volume 102.6 fL (80-100); Monocytes Absolute Auto 500 /uL (0-900); Monocytes Percent Auto 7.1 % (3-14); Neutrophils Absolute Auto 6100 /uL (1500-7000); Neutrophils Percent Auto 82.4 % (50-75); Platelet Count 162 X10^3/uL (150-400); Red Blood Cell Count 3.89 X10^6/uL (4.5-5.9); Red Cell Distribution Width 12.8 % (11.6-14.8); White Blood Cell Count 7.4 X10^3/uL (4.5-11.0)
[2023-08-06 11:23] LABS: Prothrombin Time 11.7 SECONDS (9.4-12.5)
[2023-08-06 11:26] LABS: PTT Partial Thromboplastin Tim 21 SECONDS (25.1-36.5)
[2023-08-06 11:32] LABS: Alanine Aminotransferase 11 IU/L (<50); Albumin 4.1 g/dL (3.5-5.0); Albumin Globulin Ratio 1.5 (1.0-2.8); Alkaline Phosphatase 103 U/L (38-126); Aspartate Aminotransferase 28 IU/L (17-59); BUN Creatinine Ratio 14.1 (6-22); Bilirubin Total 0.6 mg/dL (0.2-1.3); Blood Urea Nitrogen 14 mg/dL (9-20); Carbon Dioxide 25 mmol/L (22-32); Chloride 99 mmol/L (98-107); Creatine Kinase 155 U/L (55-170); Estimated Glomerular Filt Rate > 60 mL/min (>60); Globulin 2.8 g/dL (1.7-4.1); Glucose 108 mg/dL (80-110); HEMOLYSIS < 15 (0-50); Lipase 53 U/L (23-300); Magnesium 2.1 mg/dL (1.6-2.3); Potassium 3.8 mmol/L (3.4-5.1); Sodium 134 mmol/L (137-145); Total Protein 6.9 g/dL (6.3-8.2)
[2023-08-06 11:43] LABS: Troponin I 0.015 ng/mL (0.01-0.034)
--- NOTE | 2023-08-06 12:49 | ED.SYNCOPE ---
HPI - Syncope General Chief Complaint: Syncope Stated Complaint: syncope Time Seen by Provider: 08/06/23 10:44 Source: patient Mode of arrival: Wheelchair Limitations: no limitations History of Present Illness HPI narrative: Patient 77-year-old male history of Parkinson's disease BPH presents today with a syncopal episode. He reports he was feeling well last night and this morning. While sitting at the breakfast table he ate he then suddenly slumped over for a couple seconds or a minute he did not shake or had foaming at the mouth. He then was woke up and felt nauseous and vomited multiple times. He denies any dizziness or lightheadedness. He has not having any abdominal pain. He does self-catheterize for BPH multiple times daily. He was seen by Urology 2 days ago and reports that you did not have a UTI he has not had fever chills chest pain or shortness of breath. Overall feeling a lot better. He reports that he is very active walks daily exercises as much as he can he has been doing it his whole life. Related Data Home Medications Medication Instructions Recorded Confirmed aspirin 81 mg tablet,delayed 81 mg PO DAILY 08/17/20 08/04/23 release carbidopa ER 50 mg-levodopa 200 mg 2 tab PO TID 08/04/23 08/04/23 tablet,extended release Previous Rx's Medication Instructions Recorded tamsulosin 0.4 mg capsule 0.8 mg (2 x 0.4 mg) PO BEDTIME 09/24/22 #180 caps finasteride 5 mg tablet 5 mg PO DAILY #90 tabs 12/31/22 trazodone 50 mg tablet 50 - 100 mg (1 - 2 x 50 mg) PO 03/03/23 BEDTIME PRN insomnia #180 tabs Disabled Parking Permint #1 ea 05/21/23 atorvastatin 10 mg tablet See Rx Instructions .Route 06/16/23 .COMPLEX #90 tabs diazepam 5 mg tablet 5 mg PO .COMPLEX #7 tabs 07/27/23 Allergies Allergy/AdvReac Type Severity Reaction Status Date / Time No Known Drug Allergies Allergy Verified 08/06/23 10:29 Patient History Medical History (Updated 08/06/23 @ 14:24 by Martha Ball DO) History of UTI Gait instability UTI (urinary tract infection) Insomnia Coccydynia Elevated pancreatic enzyme BPH w/o urinary obs/LUTS Elevated PSA Abdominal pain Left elbow pain Well adult exam Chronic back pain (~2019) Mumps (~1950) Measles (~1950) Hearing loss History of elevated PSA (~2019) Weight loss, non-intentional (~2019) Nontraumatic coccydynia Parkinsons Incomplete bladder emptying Family history of prostate cancer in father Urinary retention Inguinal hernia Osteoarthritis BPH (benign prostatic hyperplasia) Arthritis Dog bite of left arm Surgical History Anesthesia History of intestinal surgery (~1998) History of appendectomy (~1958) Status post inguinal hernia repair (08/26/16) Status post appendectomy Status post hernia repair (~2004) Family History Father Primary amyloidosis Mother Cancer Grandfather Parkinson's disease Grandmother Dementia Social History household members: spouse Smoking Status: Never smoker alcohol intake: current Smoking Status: Never smoker alcohol intake frequency: holidays/special occasions only Substance Use Type: does not use Exam Initial Vital Signs Initial Vital Signs: Vital Signs Temperature 96.8 F L 08/06/23 10:16 Pulse Rate 57 L 08/06/23 10:16 Respiratory Rate 14 08/06/23 10:16 Blood Pressure 95/62 08/06/23 10:16 Pulse Oximetry 100 08/06/23 10:16 Oxygen Delivery Method Room Air 08/06/23 10:16 GENERAL: Alert very pleasant 77-year-old male and in no acute distress. HEENT: Head atraumatic,EOMI, pupils reactive, face symmetric, moist mucous membranes CARDIOVASCULAR: Regular rate and rhythm, rubs or gallops. RESPIRATORY: Breath sounds equal bilaterally, no wheezes rales or rhonchi. ABDOMEN: Soft, nontender. Normoactive bowel sounds all 4 quadrants. No guarding or rebound EXTREMITIES: Normal range of motion, no clubbing or edema. Neurovascularly intact NEUROLOGICAL: Alert and oriented x4.Normal gait and speech parkinsonian resting tremor. Cranial nerves II through XII grossly intact. Good [id number], good [id number], strength equal bilaterally, no dysarthria or aphasia, sensation in tact to soft touch bilaterally, no visual changes, no facial droop SKIN: Warm, dry, no laceration, no petechiae, no rashes or lesions. Scores NIH Stroke Scale Level of Conciousness: Alert, keenly responsive Ask month/age: Answers both questions correctly. Open/close eyes, close hand: Performs both tasks correctly Best gaze horizontal: Normal Visual alvarado: No visual loss Facial palsy: Normal symetrical movement Left arm drift: No drift for full 10 sec Right arm drift: No drift for full 10 sec Left leg drift: No drift for full 5 sec Right leg drift: No drift for full 5 sec Limb ataxia: Absent Sensory on face/arms/legs: Normal, no sensory loss Best language: No aphasia, normal Dysarthria: Normal Extinction or inattention: No abnormality Total NIH Stroke scale score: 0 Course Orders Ordered: Discontinued Medications Aspirin (Aspirin 81 Mg Chew Tab) 324 mg PO NOW ONE Stop: 08/06/23 10:29 Last Admin: 08/06/23 12:17 Dose: Not Given Documented By: ZULEYMA Sodium Chloride (Normal Saline 0.9%) 1,000 mls @ 1,000 mls/hr IV BOLUS ONE Stop: 08/06/23 13:55 Last Infusion: 08/06/23 14:28 Dose: Infused Documented By: Admin: 08/06/23 13:10 Dose: 1,000 mls/hr Documented By: JACOB Vital Signs Vital signs: Vital Signs - 8 hr 08/06/23 10:16 08/06/23 10:23 08/06/23 10:30 Temperature 96.8 F L Pulse Rate 57 L 58 L 56 L Respiratory Rate 14 31 H Blood Pressure 95/62 Pulse Oximetry 100 100 98 Oxygen Delivery Method Room Air 08/06/23 10:30 08/06/23 11:00 08/06/23 11:01 Temperature Pulse Rate 55 L Respiratory Rate 26 H Blood Pressure 93/62 150/65 H Pulse Oximetry 100 Oxygen Delivery Method 08/06/23 11:01 08/06/23 11:30 08/06/23 11:30 Temperature Pulse Rate 54 L 54 L Respiratory Rate 32 H 16 Blood Pressure 125/72 Pulse Oximetry 100 100 Oxygen Delivery Method MDM - Syncope Lab Data 08/06/23 10:50 08/06/23 10:50 Labs: Lab Results 08/06/23 08/06/23 Range/Units 10:50 13:55 WBC 7.4 (4.5-11.0) X10^3/uL RBC 3.89 L (4.5-5.9) X10^6/uL Hgb 13.8 (13.5-17.5) g/dL Hct 39.9 L (41-53) % MCV 102.6 H (80-100) fL MCH 35.5 H (26-34) PG MCHC 34.6 (30-36) % RDW 12.8 (11.6-14.8) % Plt Count 162 (150-400) X10^3/uL Neut % (Auto) 82.4 H (50-75) % Lymph % (Auto) 9.7 L (25-40) % [place] % (Auto) 7.1 (3-14) % Eos % (Auto) 0.4 L (2-4) % Baso % (Auto) 0.4 (0-2) % Neut # (Auto) 6100 (1637-1109) /uL Lymph # (Auto) 700 L (0868-5467) /uL [place] # (Auto) 500 (0-900) /uL Eos # (Auto) 0 (0-450) /uL Baso # (Auto) 0 (0-100) /uL PT 11.7 (9.4-12.5) SECONDS INR 1.0 (0.9-1.3) APTT 21 L (25.1-36.5) SECONDS Sodium 134 L (137-145) mmol/L Potassium 3.8 (3.4-5.1) mmol/L Chloride 99 (98-107) mmol/L Carbon Dioxide 25 (22-32) mmol/L BUN 14 (9-20) mg/dL Creatinine 0.99 (0.66-1.25) mg/dL Estimated GFR > 60 (>60) mL/min BUN/Creatinine Ratio 14.1 (6-22) Glucose 108 (80-110) mg/dL Calcium 9.0 (8.4-10.2) mg/dL Magnesium 2.1 (1.6-2.3) mg/dL Total Bilirubin 0.6 (0.2-1.3) mg/dL AST 28 (17-59) IU/L ALT 11 (<50) IU/L Alkaline Phosphatase 103 (38-126) U/L Total Creatine Kinase 155 (55-170) U/L Troponin I 0.015 (0.01-0.034) ng/mL Total Protein 6.9 (6.3-8.2) g/dL Albumin 4.1 (3.5-5.0) g/dL Globulin 2.8 (1.7-4.1) g/dL Albumin/Globulin Ratio 1.5 (1.0-2.8) Lipase 53 (23-300) U/L Urine Color Yellow Urine Appearance Clear Urine pH 7.5 (4.5-8.0) Ur Specific [place] 1.015 (1.000-1.035) Urine Protein Negative (Negative) Urine Glucose (UA) Negative (Negative) g/dL Urine Ketones Trace H (NEGATIVE) Urine Occult Blood Negative (Negative) Urine Nitrate Negative (Negative) Urine Bilirubin Negative (NEGATIVE) Urine Urobilinogen 0.2 (0.2) E.U./dL Ur Leukocyte Esterase Negative (NEGATIVE) Urine RBC 0-1/hpf D (0-5/HPF) Urine WBC None seen (0-5/HPF) Ur Squamous Epith Cells None seen (0-5/HPF) Urine Bacteria None seen (None) Ur Culture Indicated? Cult not indicated Vol Urine Centrifuged 10ml (spun) Point of Care Testing Glucose POC 100 Imaging Data Chest x-ray: Radiologist's Impression: PROCEDURE: XR CHEST 1V INDICATIONS: chest pain TECHNIQUE: One view of the chest was acquired. COMPARISON: None. FINDINGS: Surgical changes and devices: None. Lungs and pleura: Lungs are clear. No pleural effusions or pneumothorax. Mediastinum: Mediastinal contours appear normal. Heart size is normal. Bones and chest wall: No suspicious bony lesions. Overlying soft tissues appear unremarkable. IMPRESSION: No acute cardiopulmonary abnormality is seen. Dictated by: Elizabeth Vegas M.D. on 08/06/2023 at 11:15 ECG Data Interpretation: Normal sinus rhythm rate 56 WA interval 220 QRS 92 QTC 440 MDM Narrative Medical decision making narrative: Patient is a 77-year-old male who presents today with syncopal episode treating. He vomited a couple times after but overall feeling better abdomen is soft and nontender. Was feeling well earlier. Vitals have been stable. He is neurologically intact any sort of focal deficits. Not on any anticoagulation. Blood work has been reviewed no clinical significant abnormalities no leukocytosis anemia JEMAL electrolyte abnormalities Imaging reviewed EKG reviewed At this time patient is feeling better he has no more nausea vomiting he ambulated to the restroom without any assistance he has no dizziness no evidence of vertigo or stroke. At this time recommended supportive care at home offered anti nausea medication but declined at this time. If symptoms worsen they are to return to the ED. Discharge Plan Departure Patient Disposition: Home Clinical Impression: Near syncope Instructions: DI for Syncope in Adults (Fainting) Activity Restrictions/Additional Instructions: *You have been diagnosed with near-syncope *What to do: At this time blood work is overall reassuring I am sorry that you passed out and threw up this morning I hope that you feel better *Continue to take medications as directed *Follow up with your primary care provider in 2-3 days or call [phone] *Return to ER if you should have recurrent episode of passing out nausea vomiting or any new, worsening or concerning symptoms Prescriptions: No Action tamsulosin 0.4 mg capsule 0.8 mg PO BEDTIME Qty: 180 3RF finasteride 5 mg tablet 5 mg PO DAILY Qty: 90 3RF trazodone 50 mg tablet 50 - 100 mg PO BEDTIME PRN (Reason: insomnia) Qty: 180 3RF atorvastatin 10 mg tablet See Rx Instructions .ROUTE .COMPLEX Qty: 90 1RF Dose Instruction: TAKE ONE TABLET BY MOUTH NIGHTLY AT BEDTIME. DUE FOR APPOINTMENT WITH PCP FOR FURTHER REFILLS. Rx Instructions: TAKE ONE TABLET BY MOUTH NIGHTLY AT BEDTIME. (DME) Disabled Parking Permint See Rx Instructions .ROUTE .MEDSUPPLY Qty: 1 0RF Rx Instructions: I find this patient to be medically disabled and qualified for Disabled Parking as indicated and signed on the Accompanying Disabled Parking Application for individuals. aspirin 81 mg tablet,delayed release (DR/EC) 81 mg PO DAILY diazepam 5 mg tablet 5 mg PO .COMPLEX MDD 3 tabs Qty: 7 0RF Rx Instructions: 5 mg orally 1-2 for procedure one hour before; carbidopa-levodopa 50-200 mg tablet extended release 2 tab PO TID Patient Comments: Take before meal Referrals: Albert Dickey, [Primary Care Provider] - Stand Alone Forms: Patient Portal/API
[2023-08-06] MEDS: SODIUM CHLORIDE 0.9% 1,000 ML 1000 ML IV (13:10)
--- NOTE | 2023-08-06 13:48 | PC.NURSE ---
Pt ambulated to bathroom with walker and 1-person assist. Pt self-cath to produce urine sample. Prefers to use his own caths.
[2023-08-06 14:04] LABS: Appearance Urine UA CLEAR; Bilirubin Urine UA NEGATIVE (NEGATIVE); Color Urine UA YELLOW; Glucose Urine UA NEGATIVE (Negative); Ketones Urine UA TRACE (NEGATIVE); Leukocyte Esterase Urine UA NEGATIVE (NEGATIVE); Nitrite Urine UA NEGATIVE (Negative); Occult Blood Urine UA NEGATIVE (Negative); Protein Urine UA NEGATIVE (Negative); Specific Gravity Urine UA 1.015 (1.000-1.035); Urobilinogen Urine UA 0.2 E.U./dL (0.2); pH Urine UA 7.5 (4.5-8.0)
[2023-08-06 14:28] LABS: Bacteria Urine None Seen; Culture Indicated Urine Cult Not Indicated; RBC Urine 0-1/HPF (0-5/HPF); Squamous Epithelial Cell Urine None Seen (0-5/HPF); Urine Volume 10mL (spun); WBC Urine None Seen (0-5/HPF)
== END 2023-08-06 14:38 | disposition home or self-care (01) ==
PROVIDERS: Emergency Provider Emergency Medicine; Family Provider Internal Medicine; PCP Family Medicine
DX: R55 Syncope and collapse (principal); R07.9 Chest pain, unspecified
CPT/HCPCS: 36415; 71045; 80053; 81001; 82550; 82962; 83690; 83735; 84484; 85025; 85610; 85730; 93005; 96360; 99284

== ENCOUNTER 2023-08-20 09:14 | Outpatient (CLI) | payer MEDICARE, SELFPAY ==
[2023-08-20] VITALS (8 sets, daily range): BP systolic 100–136; BP diastolic 55–70; PULSE 65–73; RESP 11–20; TEMP 36.6; O2SAT 93–100
--- NOTE | 2023-08-20 09:45 | DI.RAD.S_ITS ---
PROCEDURE: PAIN L/S TRANSFORAM INJECT MACK COMPARISON: None. INDICATIONS: SPINAL STENOSIS FINDINGS: Fluoroscopic view demonstrates facet injection at the right L4-5 joint. IMPRESSION: Fluoroscopically guided right L4-5 facet injection. Dictated by: Elizabeth Vegas M.D. on 08/20/2023 at 10:58 Approved by: Elizabeth Vegas M.D. on 08/20/2023 at 10:59
[2023-08-20] MEDS: MIDAZOLAM 2 MG/2 ML VIAL IV (10:04)
[2023-08-20] MEDS: DEXAMETHASONE 10 MG/ML VIAL 20 MG INJ (10:11)
[2023-08-20] MEDS: BUPIVACAINE 0.25% (PF) VIAL 2 ML INJ (10:11)
[2023-08-20] MEDS: BETAMETHASONE 30 MG/5 ML MDV 12 MG INJ (10:12)
[2023-08-20] MEDS: iopamidoL 15 ML VIAL 3 ML INJ (10:12)
--- NOTE | 2023-08-20 10:29 | PM.PROC.IR.1 ---
Date/Time/Diagnoses Date of procedure: 08/20/23 Time of procedure: 10:29 Pre-procedure diagnosis: 1. FORAMINAL STENOSIS WITH LE SYMPTOMS Procedure Notes Procedure: 1. FLUOROSCOPICALLY GUIDED CONTRAST CONTROLLED TRANSFORAMINAL EPIDURAL STEROID INJECTION - BILATERAL L4/5 TFESI Indications: Onel is referred by Dr. Dickey for treatment of Foraminal Stenosis with bilateral LE Symptoms Physician: Jayme Gomes Total Fluoroscopy time (seconds): 23 Total sedation minutes: 17 Complications: none Procedure in detail & Post-procedure care: FINDINGS Foraminal Nerve Root Compression secondary to disc disease and facet hypertrophy DESCRIPTION OF PROCEDURE Following review of allergy and review of potential side effects and complications, including, but not necessarily limited to, infection, allergic reaction, local tissue breakdown, stroke, temporary or permanent nerve injury, paralysis, and possible , the patient indicated that the patient understood and agreed to proceed. An informed consent document was signed by the patient, witnessed by a nurse, and placed in the patient's chart. Additionally, other treatment options including medications, modalities, and physical therapy were reviewed with the patient. After review of previous anaesthesic history and IV conscious sedation the patient was deemed safe to proceed with today?s procedure with IV conscious sedation as ASA class II designation. Safety time-out was performed to confirm patient ID, procedure to be performed and site of procedure. IV sedation was accomplished with a combination of 2mg of Versed was administered by the RN after DO order, titrated to patient comfort during the course of the procedure while the patient remained responsive to all verbal commands In the prone position following sterile prep and drape of the lumbar region, the right L4/5 posterior neuroforamen was identified fluoroscopically. The skin was anesthetized via a 25-gauge 1.5-inch needle with 1% lidocaine solution. At this point, a 25-gauge 3.5-inch spinal needle was atraumatically introduced and advanced under fluoroscopic guidance through the posterior right L4/5 neuroforamen to approximately the anterior aspect of the canal. Depth was confirmed on lateral view. Following negative aspiration, injection of approximately 1.5cc of Isovue 200 under live fluoroscopy in the AP view confirmed excellent flow along the nerve root, into the epidural space without vascular or intrathecal uptake observed Radiological data, including multiple fluoroscopic views of the lumbosacral spine, reveal a spinal needle at the right L4/5 posterior neuroforamen. Subsequent views show flow of contrast material flowing superiorly and inferiorly along the nerve root confirming epidural flow. Subsequently, a test dose of 1.5cc of 1% lidocaine solution was administered and patient was observed for two minutes for signs or symptoms of complications, including abdominal pain, shortness of breath, bilateral upper or lower extremity weakness, nausea and vomiting, prior to steroid injection. At this point, a total of 2cc or 10mg of dexamethasone and 6mg betamethasone was injected without incident. Attention was then refocused to the left L4/5 level where the identical procedure was replicated. The procedure tolerated the procedure well without signs or symptoms of complications prior to transfer to the recovery area continued monitoring without incident. The patient was then transferred to the recovery area where they were observed for an appropriate time after the injection. The patient reported a VAS score of 7 prior to the procedure and a post-procedure VAS of 0. POST OP INSTRUCTIONS The patient was provided a Pain Log to continue to record their response to the target-specific procedure prior to follow-up visit with their referring physician. Additionally, specific post-injection care instructions and a contact number to our office were provided if concerns arise regarding possible complications associated with the procedure are suspected.
--- NOTE | 2023-08-20 10:58 | PC.NURSE ---
Upon returning from procedure room patient with noticeable weakness to lower extremities, he also reports some weakness outside of his normal baseline. 2 person assist from wheelchair to recliner. Clear for discharge from sedation protocol but will give more time for Dr. Gomes to evaluate prior to discharge. Care ongoing.
--- NOTE | 2023-08-20 11:35 | PC.NURSE ---
Update: Patient stood with 2 person SBA. Remains unsteady with buckeling of the right knee noted. Patient reports baseline BLE weakness and unsteadiness. He walks with a cane normally. He has not met criteria for safe discharge. Dr. Gomes updated. Care ongoing.
--- NOTE | 2023-08-20 12:12 | PC.NURSE ---
1200 Patient reports BLE feeling more like my normal. SBA to stand, no buckeling at this time. Able to take multiples steady steps with 2 person SBA. Visually patient at or better than his gait witnessed upon check in pre-procedure as well as the report from patient feeling like he is at his baseline weakness and mobility. Beni, patient's , updated on aftercare and safety precautions. He has a cane and walker at home. Discharge criteria met.
== END 2023-08-20 12:09 | disposition home or self-care (01) ==
LOC: RAD 09:15
PROVIDERS: Family Provider Internal Medicine; PCP Family Medicine; Referring Provider Physical Medicine & Rehabilitation; Visit Provider Physical Medicine & Rehabilitation
DX: M48.061 Spinal stenosis, lumbar region without neurogenic claudication (principal); M51.16 Intervertebral disc disorders with radiculopathy, lumbar region; M47.26 Other spondylosis with radiculopathy, lumbar region
CPT/HCPCS: 64483; 99152; J0702; J1100; J2250; J3490

== ENCOUNTER → 2023-11-13 14:46 | Outpatient (CLI) | payer MEDICARE, SELFPAY ==
[2023-11-13 15:42] LABS: Add Manual Diff / Slide Review NO; Basophils Absolute Auto 0 /uL (0-100); Basophils Percent Auto 0.6 % (0-2); Eosinophils Absolute Auto 100 /uL (0-450); Eosinophils Percent Auto 0.9 % (2-4); Hematocrit 39.7 % (41-53); Hemoglobin 14.1 g/dL (13.5-17.5); Lymphocytes Absolute Auto 1300 /uL (1100-4500); Lymphocytes Percent Auto 19.9 % (25-40); Mean Corpuscular HGB Conc 35.4 % (30-36); Mean Corpuscular Hemoglobin 34.9 PG (26-34); Mean Corpuscular Volume 98.5 fL (80-100); Monocytes Absolute Auto 500 /uL (0-900); Monocytes Percent Auto 7.3 % (3-14); Neutrophils Absolute Auto 4800 /uL (1500-7000); Neutrophils Percent Auto 71.3 % (50-75); Platelet Count 126 X10^3/uL (150-400); Red Blood Cell Count 4.03 X10^6/uL (4.5-5.9); Red Cell Distribution Width 12.9 % (11.6-14.8); White Blood Cell Count 6.8 X10^3/uL (4.5-11.0)
--- NOTE | 2023-11-13 16:21 | DI.US.S_ITS ---
PROCEDURE: US CAROTID DOPPLER BI INDICATIONS: syncope TECHNIQUE: Color and pulse Doppler interrogation was performed of both carotid systems, with image documentation and velocity measurements. COMPARISON: None. FINDINGS: Stenosis calculations are based on SRU (Society of Radiologists in Ultrasound) criteria. Right side: Brachial blood pressure: 135/76 mm Hg. Common carotid artery peak systolic velocity: 107 cm/sec. Internal carotid artery peak systolic velocity: 81 cm/sec. Internal carotid artery end diastolic velocity: 28 cm/sec. External carotid artery peak systolic velocity: 82 cm/sec. ICA/CCA peak systolic ratio: 1.1 . Mcfarland scale imaging description: Mild atherosclerotic plaque Percent internal carotid artery stenosis: Less than 50 . Vertebral artery: Flow direction is antegrade. Left side: Brachial blood pressure: 132/79 mm Hg. Common carotid artery peak systolic velocity: 124 cm/sec. Internal carotid artery peak systolic velocity: 71 cm/sec. Internal carotid artery end diastolic velocity: 22 cm/sec. External carotid artery peak systolic velocity: 105 cm/sec. ICA/CCA peak systolic ratio: 0.9 . Mcfarland scale imaging description: Mild atherosclerotic plaque Percent internal carotid artery stenosis: Less than 50 . Vertebral artery: Flow direction is antegrade. IMPRESSION: Moderate atherosclerotic plaque without evidence of hemodynamically significant stenosis Approved by: Prosper Hamm M.D. on 11/13/2023 at 18:10
[2023-11-13 16:24] LABS: Erythrocyte Sedimentation Rate 5 MM/HR (0-15)
[2023-11-13 17:00] LABS: Alanine Aminotransferase 8 IU/L (<50); Albumin 4.3 g/dL (3.5-5.0); Albumin Globulin Ratio 1.9 (1.0-2.8); Alkaline Phosphatase 83 U/L (38-126); Aspartate Aminotransferase 27 IU/L (17-59); BUN Creatinine Ratio 14.9 (6-22); Bilirubin Total 0.8 mg/dL (0.2-1.3); Blood Urea Nitrogen 14 mg/dL (9-20); C-Reactive Protein Quant < 0.5 mg/dL (<1.0); Calcium 8.7 mg/dL (8.4-10.2); Carbon Dioxide 29 mmol/L (22-32); Chloride 98 mmol/L (98-107); Estimated Glomerular Filt Rate > 60 mL/min (>60); Globulin 2.3 g/dL (1.7-4.1); Glucose 105 mg/dL (80-110); HEMOLYSIS < 15 (0-50); Potassium 4.3 mmol/L (3.4-5.1); Sodium 133 mmol/L (137-145); Total Protein 6.6 g/dL (6.3-8.2)
[2023-11-13 17:35] LABS: TSH w/ Reflex to FT4 1.03 uIU/mL (0.47-4.68)
== END ==
PROVIDERS: Family Provider Internal Medicine; PCP Family Medicine; Referring Provider Internal Medicine; Visit Provider Internal Medicine
DX: G20.A1 Parkinson's disease without dyskinesia, without mention of fluctuations (principal); R55 Syncope and collapse; E78.00 Pure hypercholesterolemia, unspecified; R26.81 Unsteadiness on feet; E03.9 Hypothyroidism, unspecified
CPT/HCPCS: 80053; 84443; 85025; 85651; 86140; 93880

== ENCOUNTER → 2023-11-25 14:43 | Outpatient (CLI) | payer MEDICARE, SELFPAY | LOC: CAR 14:44 | PROVIDERS: Family Provider Internal Medicine; PCP Family Medicine; Referring Provider Internal Medicine; Visit Provider Internal Medicine | DX: R55 Syncope and collapse (principal) | CPT/HCPCS: 93246 ==

== ENCOUNTER → 2024-02-08 09:57 | Outpatient (CLI) | payer MEDICARE, SELFPAY ==
[2024-02-08 12:15] LABS: Prostate Specific Antigen 1.81 ng/mL (0.10-4.00)
== END ==
LOC: LAB 09:58
PROVIDERS: Family Provider Internal Medicine; PCP Family Medicine; Referring Provider Specialist; Visit Provider Specialist
DX: N40.1 Benign prostatic hyperplasia with lower urinary tract symptoms (principal)
CPT/HCPCS: 36415; 84153

== ENCOUNTER → 2024-04-27 06:51 | Outpatient (CLI) | payer MEDICARE, SELFPAY ==
--- NOTE | 2024-04-27 06:52 | DI.ECHO.S_ITS ---
[facility]---------+ [facility] : : [address] : : [place] : : [id number] : : Phone: [phone] Echocardiogram Report + + :Name: JODI BLANTON Study Date: 04/27/2024 Height: 67 in : :[facility] ReadingLocation: Weight: 143 lb : : Gender: Male BSA: 1.8 m2 : :: 1945 Age: 78 yrs BP: 132/81 mmHg: :Reason For Study: SUPRAVENTRICULAR TACHYCARDIA : :Ordering Physician: KATTY AJ Performed By: Radha Pacheco : :Referring: KATTY AJ : + + Interpretation Summary 1. Left ventricular contractility is moderately compromised. Estimate ejection fraction is approximate 35 to 40%. There is severe hypokinesis of the inferior segment. Remaining segments appear to be mildly hypokinetic. No LVH. Grade 1 diastolic dysfunction. Global longitudinal strain of -19.1%. 2. The right ventricular contractility is normal. 3. Mild left atrial enlargement. All other cardiac chambers are of normal size. 4. Trace to mild tricuspid regurgitation with estimated pulmonary systolic artery pressures of 20 mmHg. 5. Mild mitral regurgitation. 6. No obvious intracardiac shunts. 7. No obvious tract masses nor thrombi. 8. No hemodynamically significant pericardial effusion 9. Low right-sided filling pressures. Conclusion: Moderately compromised left ventricular systolic function with mild valvular insufficiencies. Normal left ventricular global longitudinal strain. Procedure: A two-dimensional transthoracic echocardiogram with color flow and Doppler was performed. The study quality was technically adequate. Images from the parasternal window were difficult to obtain and are suboptimal in quality due to pectus excavatum. The patient was in sinus bradycardia with heart rates between 49-57 bpm during the exam. Left Ventricle: The left ventricle is normal in size and wall thickness. Right Ventricle: The right ventricle is normal in size and function. Atria: The left atrium is mildly dilated. Right atrial size is normal. There is no Doppler evidence for an interatrial shunt. Mitral Valve: The mitral valve leaflets appear moderately thickened, but open well. There is mild mitral regurgitation. Aortic Valve: The aortic valve is trileaflet. The aortic valve opens well. There is no aortic valve stenosis. No aortic regurgitation is present. Tricuspid Valve: The tricuspid valve leaflets are thickened and/or calcified, but open well. There is mild tricuspid regurgitation. The right ventricular systolic pressure is estimated to be at least 20 mmHg based on an estimated right atrial pressure of 3 mm Hg. Pulmonic Valve: The pulmonic valve is not well visualized. There is no pulmonic valvular regurgitation. Great Vessels: The aortic root is borderline dilated. The ascending aorta is mildly enlarged. The IVC is of normal diameter and collapses greater than 50% with a sniff. This suggests a low right atrial pressure of 3 mm Hg. Pericardium/ Pleura There is no pericardial effusion. There is no pleural effusion. MMode/2D Measurements & Calculations LVIDd: 4.5 cm LVOT diam: 2.0 cm LVIDs: 3.7 cm Ao root diam: 3.6 cm FS: 16.3 % asc Aorta Diam: 3.9 cm IVSd: 0.66 cm Ao Arch Diam (Prox Trans): 2.8 cm LVPWd: 0.68 cm LV peralta. diameter/BSA (cm/m^2): 2.5 LV sys. diameter/BSA (cm/m^2): 2.1 LA A2 area: 20.9 cm2 RA long axis: 5.1 cm LA A4 area: 18.1 cm2 RA area: 18.2 cm2 LA length (vol): 4.8 cm RA vol: 55.1 ml LA vol: 66.7 ml RA : 31.4 ml/m2 LA vol index: 38.0 ml/m2 IVC diam: 1.9 cm RVD1 (basal): 4.0 cm RVD2 (mid): 3.2 cm TAPSE: 1.9 cm Doppler Measurements & Calculations Ao V2 max: 101.8 cm/sec LVOT Max Ryan: 106.3 cm/sec Ao V2 mean: 72.0 cm/sec LV V1 max P.5 mmHg Ao max P.1 mmHg LV V1 VTI: 22.8 cm Ao mean P.3 mmHg AMBER(I,D): 2.9 cm2 Ao V2 VTI: 24.5 cm AMBER(V,D): 3.3 cm2 sev ratio: 0.93 AMBER indexed to BSA (cm^2/m^2): 1.7 MV E max ryan: 59.1 cm/sec TR max ryan: 206.8 cm/sec MV A max ryan: 65.2 cm/sec TR max P.1 mmHg MV E/A: 0.91 PA V2 max: 70.2 cm/sec Med Peak E' Ryan: 5.9 cm/sec PA V2 mean: 46.8 cm/sec E/E' med: 10.0 PA mean P.0 mmHg Lat Peak E' Ryan: 6.2 cm/sec PA pr(Accel): 3.6 mmHg E/E' lat: 9.5 E/e' average: 9.8 MV dec time: 0.25 sec MVA(VTI): 3.1 cm2 MV V2 mean: 37.0 cm/sec SV(LVOT): 72.3 ml MV mean P.63 mmHg MV V2 VTI: 23.0 cm Reading Physician:
== END ==
PROVIDERS: Family Provider Internal Medicine; PCP Family Medicine; Referring Provider Internal Medicine; Visit Provider Internal Medicine
DX: I77.810 Thoracic aortic ectasia (principal); I08.1 Rheumatic disorders of both mitral and tricuspid valves; R00.1 Bradycardia, unspecified; I47.10 Supraventricular tachycardia, unspecified
CPT/HCPCS: 93306

== ENCOUNTER → 2024-07-07 09:40 | Outpatient (CLI) | payer MEDICARE, SELFPAY ==
--- NOTE | 2024-07-07 09:41 | DI.NM.S_ITS ---
PROCEDURE: NM SARAHI PERF SPECT R&S PHARM Rest and pharmacological stress myocardial perfusion SPECT with gated imaging and ejection fraction RADIOPHARMACEUTICAL: 12.5 mCi Tc-99m tetrafosmin IV at rest and 25.0 mCi Tc-99m tetrafosmin IV at peak effect of pharmacological stress. [id number] was performed. INDICATIONS: SYSTOLIC HEART FAILURE PQRS ATTESTATIONS: Measure 322 - Is this imaging test primarily performed on a low-risk surgery patient for preoperative evaluation within 30 days preceding their low-risk non-cardiac surgery? Low-risk surgery is defined as cardiac or myocardial infarction less than 1%, including (but not limited to) endoscopic procedures, superficial procedures, cataract surgery, and excisional breast surgery: Answer: No Measure 323 - Is this imaging test performed primarily for the monitoring of an asymptomatic patient who had percutaneous coronary intervention on the visit date or within 2 years of the visit date? Answer: No Measure 324 - Is this imaging test performed primarily for the initial detection and risk assessment on an asymptomatic, low coronary heart disease patient? Low CHD risk definition = clinicians should consider the maximum number of available patient factors used to estimate risk based on Sanford (ATP III criteria), typically age, gender, diabetes, smoking status, and use of blood pressure medication, and integrate age appropriate estimates for missing elements, such as LDL or standard blood pressure. Answer: No TECHNIQUE: Radiopharmaceutical was injected at peak stress test, and also at rest. SPECT images were obtained. SPECT myocardial perfusion images were displayed in short axis, horizontal long axis, and vertical long axis views. Gated images were reviewed using [employer] software. COMPARISON: None. CARDIAC STRESS: A pharmacologic stress test was performed under the supervision of an attending staff, using an infusion of Lexiscan at 0.4 mg. Hemodynamic data: There is normal blood pressure and heart rate response to pharmacologic stress. Symptoms: The patient denied anginal chest pain. Aminophylline: None EKG: No diagnostic changes of ischemia; no ectopy. FINDINGS: Raw data: There is good myocardial uptake of radiotracer. No significant motion artifacts. Gqct-qa-ctimb ratio is not calculated (normal is less than 0.38 for tetrafosmin tracer). Left ventricle function: Gated images demonstrate normal left ventricular wall thickening. No segmental wall motion abnormalities. No transient ischemic dilation; TID is 0.98 (normal less than 1.3). Left ventricle resting end diastolic volume is 107 mL. Left ventricle stress ejection fraction is 69%; normal range is above 45%. Myocardial perfusion: Rest images had mild hypoperfusion in the inferior segment. Stress images demonstrated a slight worsening of the inferior segment hypoperfusion. However prone images had no perfusion defects. IMPRESSION: 1. Negative Lexiscan myocardial perfusion scan for ischemia and infarction. Dictated by: Sean Aj M.D. on 07/07/2024 at 16:19 Approved by: Sean jA M.D. on 07/07/2024 at 16:22
== END ==
PROVIDERS: Family Provider Internal Medicine; PCP Family Medicine; Referring Provider Internal Medicine; Visit Provider Internal Medicine
DX: I50.21 Acute systolic (congestive) heart failure (principal)
CPT/HCPCS: 78452; 93017; A9502; J2785

== ENCOUNTER → 2024-09-15 10:48 | Outpatient (CLI) | payer MEDICARE, SELFPAY ==
[2024-09-15 13:21] LABS: Prostate Specific Antigen 2.39 ng/mL (0.10-4.00)
== END ==
LOC: LAB 10:50
PROVIDERS: Family Provider Internal Medicine; PCP Family Medicine; Referring Provider Urology; Visit Provider Urology
DX: N40.1 Benign prostatic hyperplasia with lower urinary tract symptoms (principal); Z78.9 Other specified health status
CPT/HCPCS: 36415; 84153

== ENCOUNTER → 2024-09-16 10:34 | Outpatient (CLI) | payer MEDICARE, SELFPAY | PROVIDERS: Family Provider Internal Medicine; PCP Family Medicine; Visit Provider Urology | DX: N40.1 Benign prostatic hyperplasia with lower urinary tract symptoms (principal); N31.2 Flaccid neuropathic bladder, not elsewhere classified; G20.B1 Parkinson's disease with dyskinesia, without mention of fluctuations; R82.81 Pyuria; Z78.9 Other specified health status | CPT/HCPCS: 81002; 87077; 87086; 87186; 99214 ==

== ENCOUNTER 2024-10-20 10:45 | Outpatient (RCR) | payer MEDICARE, SELFPAY ==
--- NOTE | 2024-10-18 14:57 | PT.OIE ---
Current Diagnoses Parkinson's disease with dyskinesia, without mention of fluctuations (10/18/24) Ataxic gait (10/18/24) Unsteadiness on feet (10/18/24) Other abnormalities of gait and mobility (10/18/24) Past Medical History (Last Updated 09/16/24 @ 12:40 by Jamarcus Mireles MD) Arthritis Benign non-nodular prostatic hyperplasia with lower urinary tract symptoms (06/18/15) BPH (benign prostatic hyperplasia) Calcaneal spur Chronic back pain (~2018) Elevated PSA Facet arthropathy, lumbosacral Family history of prostate cancer in father Gait instability Ganglion of left wrist (06/18/15) Hearing loss Herniated nucleus pulposus, L4-5 History of elevated PSA (~2019) Hypotonic bladder Incomplete bladder emptying Inguinal hernia Insomnia Intermittent self-catheterization of bladder Lumbosacral radiculopathy at L4 Lumbosacral spondylosis with radiculopathy Measles (~1949) Mumps (~1949) Neoplasm of uncertain behavior of skin (08/26/16) Nontraumatic coccydynia Osteoarthritis Parkinsons Parkinsons disease (~2017) Peripheral vascular disease (~2019) Plantar fasciitis Pure hypercholesterolemia (09/23/16) UTI (urinary tract infection) Vasovagal syncope Weight loss, non-intentional (~2019) Past Surgical History (Last Reviewed 06/12/24 @ 08:49 by Albert Dickey DO) Anesthesia History of appendectomy (~1958) History of intestinal surgery (~1998) Status post appendectomy Status post hernia repair (~2004) Status post inguinal hernia repair (08/26/16) Visit Care Team Role Provider Type Albert Dickey DO Attending Provider Physician Family Provider Primary Care Provider Referring Provider Specialty: Family Practice Address: [address] [place] [address], [facility] Email: [email or web address] Initial Evaluation PT-OP-A Visit Information Start: 10/18/24 14:21 Freq: Status: Active Protocol: Document 10/18/24 10:45 DCW (Rec: 10/18/24 14:29 DCW [id number]) Out-Patient Physical Therapy Visit Information Visit Information Visit Type Initial Evaluation Visit Start Time 10:45 Visit Stop Time 11:30 Visit Number 1 Number of FARM REPORTER Visits 0 Evaluation Information Evaluation Date 10/18/24 PT-OP-B Current Condition Start: 10/18/24 14:21 Freq: Status: Active Protocol: Document 10/18/24 10:45 DCW (Rec: 10/18/24 14:29 DCW [id number]) Current Condition History of Current Condition Onset Date 2018 Current Complaints Parkinson's, declining balance History of Current Condition Pt is an 79 year old male presenting with complaints of worsening balance and gait secondary to Parkinson's Disease. Pt reports he was first diagnosed in 2018, although his right hand tremor first appeared in 2014. Pt notes PD symptoms are progressing rather slowly, and his tremor doesn't seem to be getting worse. Pt has to self-cath himself 4x/day due to neurogenic bladder. Pt notes only one fall in the last ~5 years, reports it was only because he was in a hurry and not paying attention. Pt typically uses a SPC in the community and a quad cane at home. Does have Trekking poles that he uses when out for his daily walk, typically lasting about 30 minutes. Does walk on trails, but only when his goes with him. Pt reports he and his have had conversations about moving to [facility], but would rather stay independent for as long as they can. PT-OP-C Subjective Start: 10/18/24 14:21 Freq: Status: Active Protocol: Document 10/18/24 10:45 DCW (Rec: 10/18/24 14:29 DCW [id number]) OP-PT Subjective Patient Comments Patient Comments I want to stay as active as I can for as long as I can. PT-OP-D Balance Start: 10/18/24 14:21 Freq: Status: Active Protocol: Document 10/18/24 10:45 DCW (Rec: 10/18/24 14:38 DCW [id number]) Balance Tests Allen Balance Test Allen Balance Test Score 44/56 Allen Impairment Rating 20 to 39% Impaired (Score 34- 44) Allen Balance Assessment Evaluation Sitting to Standing Ability Independent w/out Hands Unsupported Stance Supervision- 2 minutes Sitting Unsupported, Feet on Floor Safely- 2 minutes Standing to Sitting Ability Safely, Minimal Hand Use Transfer Ability Safely, Hand Use Unsupported Stance- Eyes Closed Supervision, 10 seconds Unsupported Stance- Eyes Open Independent, 1 minute Reaching Forward Standing Confidently, 10 inches Pick- Up Object From Floor Independent/Safe Look Behind Shoulder - Standing Shifts Weight Well Turning 360 Degrees Supervision/Verbal Cues Unsupported Stance, Alternating Feet on 4 Steps w/Supervision Stair Unsupported Tandem Stance Holds Tandem- 30 seconds Unilateral Leg Stance Lifts Leg/Unable to Hold Total Score Allen Total Score (out of 56 points) 44 Allen Impairment Rating 20 to 39% Impaired (Score 34- 44) Tinetti Balance Assessment Sitting Balance Sitting Balance Steady, safe Arising from Chair Ability to Arise Able, w/o using arms Attempts to Arise Arises on 1st attempt Standing Balance Immediate Standing Balance Steady w/o support Standing Balance Steady, wide stance Nudged Response Staggers, catches self Standing with Eyes Closed Steady Turning Step Pattern Turning 360 Degrees Discontinuous steps Stability Turning 360 Degrees Unsteady, grabs/staggers Sitting Down Sitting Down Safe, steady Gait and Step Initiation of Gait No hesitancy Right Foot Step Length Does not pass stance ft. Right Foot Step Height Completely clears floor Left Foot Step Length Does pass stance foot Left Foot Step Height Completely clears floor Step Description Step Symmetry Step length not equal Step Continuity Stopping or discontinuity Gait Description Path Description Mild/moderate deviation Trunk Description Marked sway or uses aide Walking Stance Heels apart Scoring and Interpretation Tinetti Composite Score (points) 17 Interpretation of Scores High risk for falls(< 19) Tinetti Impairment Rating from Composite 20 to <40% Impaired (Score 17- Score 22) PT-OP-E Functional Tests Start: 10/18/24 14:21 Freq: Status: Active Protocol: Document 10/18/24 10:45 DCW (Rec: 10/18/24 14:38 [facility] [id number]) Functional Tests 30 Second Sit to Stand Test Score x19 repetitions Timed Up and Go (TUG) Score 10.3 /s AD Comments Three-trial Average (10.67, 10 .28, 9.94) PT-OP-G Mobility & Gait Start: 10/18/24 14:21 Freq: Status: Active Protocol: Document 10/18/24 10:45 DCW (Rec: 10/18/24 14:38 [facility] [id number]) OP Gait Assessment Gait Gait Assistance Required: Independent Assistive Devices Assistive Device Tripod Cane/Hurry Cane Gait Deviations General Gait Pattern Ataxic,Decreased Stride Length ,Festinating,Wide Based Gait Comments Gait Comments Severe Festinating gait pattern, occasional difficulty initiating movement. Ambulates with halting gait. PT-OP-M Strength Start: 10/18/24 14:21 Freq: Status: Active Protocol: Document 10/18/24 10:45 DCW (Rec: 10/18/24 14:38 DCW [id number]) Hip Strength Hip Manual Muscle Testing Right Flexion (L2) 4+ Good+ Extension (S1) 4 Good Abduction 4 Good Adduction 4 Good External Rotation 4+ Good+ Internal Rotation 4+ Good+ Left Flexion (L2) 4+ Good+ Extension (S1) 4- Good- Abduction 4 Good Adduction 4 Good External Rotation 4+ Good+ Internal Rotation 4+ Good+ Knee Strength Knee Manual Muscle Testing Right Flexion (S2) 4+ Good+ Extension (L3) 4+ Good+ Left Flexion (S2) 4+ Good+ Extension (L3) 4+ Good+ Ankle/Foot Strength Ankle and Foot Manual Muscle Testing Right Dorsiflexion (L4) 4+ Good+ Left Dorsiflexion (L4) 4+ Good+ PT-OP-T Assessment and Plan Start: 10/18/24 14:21 Freq: Status: Active Protocol: Document 10/18/24 10:45 DCW (Rec: 10/18/24 14:57 DCW [id number]) Physical Therapy Assessment Rehab Potential Rehabilitation Potential Fair Evaluation Complexity Number of Personal Factors/Comorbidities 3 or More Number of Body Systems Impaired 4 or More Clinical Presentation at Evaluation Unstable Impairments Impairments Balance,Coordination, Functional Activities, Functional Mobility,Gait, Strength Other Concerns Fall Risk Yes, per score on Allen Balance (44/56) and Tinetti (17/28) Goals Two Impairment Pt experiencing increased difficulty ambulating on uneven trails Collection Systems Worker Goal (LTG) Pt to demonstrate a decreased falls risk by improving Tinetti score by at least six points to 23/28 in order to improve safety when walking through the forest land. LTG Duration 01/16/25 One Impairment Pt does not have an appropriate home exercise program Short Term Goal (STG) PT to be independent and compliant with an appropriate HEP STG Duration 11/18/24 Assessment Summary Assessment Pt presents with signs and symptoms consistent with referring diagnosis. Pt is overall doing fairly well with his PD diagnosis, practically no falls over the past 8 years, good general LE strength, gets out walking daily using a cane or trekking poles. Does have a fairly severe Festinating gait pattern, occasional difficulty initiating movement, and a significant R>L resting tremor . Pt testing does indicate an increased falls risk, per score on Allen Balance (44/56) and Tinetti (17/28). Pt does, however, score 19 repetitions on the 30 second Sit to Stand test, which is substantially better than the average score for his age group, which is 10 . Additionally, pt has an excellent TUG score of 10.3. Pt will likely benefit from skilled therapy focusing on static and dynamic balance challenges, coordination training, functional mobility, gait, and some minor hip strengthening. Physical Therapy Plan Frequency and Duration Frequency of Treatment 2x/Week Plan of Care Start Date 10/18/24 Plan of Care End Date 01/16/25 Therapeutic Interventions Therapeutic Interventions Balance Training,Coordination Training,Gait Training,Home Exercise Program,Joint Mobilizations,Manual Therapy, Neuromuscular Re-education, Patient/Caregiver Education, Self-Care/Home Management,Soft Tissue Mobilization, Therapeutic Activities, Therapeutic Exercises Next Visit Focus/Plan Next Note Type Treatment Note Next Visit Plan Static/dynamic balance challenges, gait training, coordination training
--- NOTE | 2024-10-18 14:58 | PT.OPPOC ---
Physical, Occupational & Speech Therapy At [facility] Current Diagnoses Parkinson's disease with dyskinesia, without mention of fluctuations (10/18/24) Ataxic gait (10/18/24) Unsteadiness on feet (10/18/24) Other abnormalities of gait and mobility (10/18/24) Visit Care Team Role Provider Type Albert Dickey DO Attending Provider Physician Family Provider Primary Care Provider Referring Provider Specialty: Family Practice Address: [address] [place] [address], [facility] Email: [email or web address] Plan Of Care PT-OP-B Current Condition Start: 10/18/24 14:21 Freq: Status: Active Protocol: Document 10/18/24 10:45 DCW (Rec: 10/18/24 14:29 DCW [id number]) Current Condition History of Current Condition Onset Date 2017 Current Complaints Parkinson's, declining balance History of Current Condition Pt is an 79 year old male presenting with complaints of worsening balance and gait secondary to Parkinson's Disease. Pt reports he was first diagnosed in 2018, although his right hand tremor first appeared in 2014. Pt notes PD symptoms are progressing rather slowly, and his tremor doesn't seem to be getting worse. Pt has to self-cath himself 4x/day due to neurogenic bladder. Pt notes only one fall in the last ~5 years, reports it was only because he was in a hurry and not paying attention. Pt typically uses a SPC in the community and a quad cane at home. Does have Trekking poles that he uses when out for his daily walk, typically lasting about 30 minutes. Does walk on trails, but only when his goes with him. Pt reports he and his have had conversations about moving to [facility], but would rather stay independent for as long as they can. PT-OP-T Assessment and Plan Start: 10/18/24 14:21 Freq: Status: Active Protocol: Document 10/18/24 10:45 DCW (Rec: 10/18/24 14:57 DCW [id number]) Physical Therapy Assessment Rehab Potential Rehabilitation Potential Fair Evaluation Complexity Number of Personal Factors/Comorbidities 3 or More Number of Body Systems Impaired 4 or More Clinical Presentation at Evaluation Unstable Impairments Impairments Balance,Coordination, Functional Activities, Functional Mobility,Gait, Strength Other Concerns Fall Risk Yes, per score on Allen Balance (44/56) and Tinetti (17/28) Goals Two Impairment Pt experiencing increased difficulty ambulating on uneven trails Intermediate Goal (LTG) Pt to demonstrate a decreased falls risk by improving Tinetti score by at least six points to 23/28 in order to improve safety when walking through the forest land. LTG Duration 01/16/25 One Impairment Pt does not have an appropriate home exercise program Short Term Goal (STG) PT to be independent and compliant with an appropriate HEP STG Duration 11/18/24 Assessment Summary Assessment Pt presents with signs and symptoms consistent with referring diagnosis. Pt is overall doing fairly well with his PD diagnosis, practically no falls over the past 8 years, good general LE strength, gets out walking daily using a cane or trekking poles. Does have a fairly severe Festinating gait pattern, occasional difficulty initiating movement, and a significant R>L resting tremor . Pt testing does indicate an increased falls risk, per score on Allen Balance (44/56) and Tinetti (17/28). Pt does, however, score 19 repetitions on the 30 second Sit to Stand test, which is substantially better than the average score for his age group, which is 10 . Additionally, pt has an excellent TUG score of 10.3. Pt will likely benefit from skilled therapy focusing on static and dynamic balance challenges, coordination training, functional mobility, gait, and some minor hip strengthening. Physical Therapy Plan Frequency and Duration Frequency of Treatment 2x/Week Plan of Care Start Date 10/18/24 Plan of Care End Date 01/16/25 Therapeutic Interventions Therapeutic Interventions Balance Training,Coordination Training,Gait Training,Home Exercise Program,Joint Mobilizations,Manual Therapy, Neuromuscular Re-education, Patient/Caregiver Education, Self-Care/Home Management,Soft Tissue Mobilization, Therapeutic Activities, Therapeutic Exercises Next Visit Focus/Plan Next Note Type Treatment Note Next Visit Plan Static/dynamic balance challenges, gait training, coordination training Plan of Care Dates Plan of Care Start Date 10/18/24 Plan of Care End Date 01/16/25 Electronically Signed by: Brandon Emanuel, PT 10/18/24 8910 If you are in agreement with this Plan of Care, please return a signed and dated copy. I have reviewed this Plan of Care and certify that the skilled therapy services above are required to meet the patient?s needs. Physician Signature Date Printed Name and Credentials Clinical Instructor Signature Printed Name and Credentials
--- NOTE | 2024-10-20 11:36 | PT.OTN ---
Current Diagnoses Parkinson's disease with dyskinesia, without mention of fluctuations (10/20/24) Ataxic gait (10/20/24) Unsteadiness on feet (10/20/24) Other abnormalities of gait and mobility (10/20/24) Physical Therapy Treatment Note PT-OP-A Visit Information Start: 10/18/24 14:21 Freq: Status: Active Protocol: Document 10/20/24 10:45 DCW (Rec: 10/20/24 11:36 DCW [id number]) Out-Patient Physical Therapy Visit Information Visit Information Visit Type Treatment Note Visit Start Time 10:45 Visit Stop Time 11:30 Visit Number 2 Number of STEAMBOAT CAPTAIN Visits 0 Evaluation Information Evaluation Date 10/18/24 PT-OP-B Current Condition Start: 10/18/24 14:21 Freq: Status: Active Protocol: Document 10/18/24 10:45 DCW (Rec: 10/18/24 14:29 DCW [id number]) Current Condition History of Current Condition Onset Date 2017 Current Complaints Parkinson's, declining balance History of Current Condition Pt is an 79 year old male presenting with complaints of worsening balance and gait secondary to Parkinson's Disease. Pt reports he was first diagnosed in 2018, although his right hand tremor first appeared in 2015. Pt notes PD symptoms are progressing rather slowly, and his tremor doesn't seem to be getting worse. Pt has to self-cath himself 4x/day due to neurogenic bladder. Pt notes only one fall in the last ~5 years, reports it was only because he was in a hurry and not paying attention. Pt typically uses a SPC in the community and a quad cane at home. Does have Trekking poles that he uses when out for his daily walk, typically lasting about 30 minutes. Does walk on trails, but only when his goes with him. Pt reports he and his have had conversations about moving to [facility], [place], but would rather stay independent for as long as they can. PT-OP-C Subjective Start: 10/18/24 14:21 Freq: Status: Active Protocol: Document 10/20/24 10:45 DCW (Rec: 10/20/24 11:36 DCW [id number]) OP-PT Subjective Patient Comments Patient Comments I can help some with my freezing gait if I think about it constantly, but as soon as I stop paying attention, I lose it. PT-OP-D Balance Start: 10/18/24 14:21 Freq: Status: Active Protocol: Document 10/18/24 10:45 DCW (Rec: 10/18/24 14:38 DCW [id number]) Balance Tests Allen Balance Test Allen Balance Test Score 44/56 Allen Impairment Rating 20 to 39% Impaired (Score 34- 44) Allen Balance Assessment Evaluation Sitting to Standing Ability Independent w/out Hands Unsupported Stance Supervision- 2 minutes Sitting Unsupported, Feet on Floor Safely- 2 minutes Standing to Sitting Ability Safely, Minimal Hand Use Transfer Ability Safely, Hand Use Unsupported Stance- Eyes Closed Supervision, 10 seconds Unsupported Stance- Eyes Open Independent, 1 minute Reaching Forward Standing Confidently, 10 inches Pick- Up Object From Floor Independent/Safe Look Behind Shoulder - Standing Shifts Weight Well Turning 360 Degrees Supervision/Verbal Cues Unsupported Stance, Alternating Feet on 4 Steps w/Supervision Stair Unsupported Tandem Stance Holds Tandem- 30 seconds Unilateral Leg Stance Lifts Leg/Unable to Hold Total Score Allen Total Score (out of 56 points) 44 Allen Impairment Rating 20 to 39% Impaired (Score 34- 44) Tinetti Balance Assessment Sitting Balance Sitting Balance Steady, safe Arising from Chair Ability to Arise Able, w/o using arms Attempts to Arise Arises on 1st attempt Standing Balance Immediate Standing Balance Steady w/o support Standing Balance Steady, wide stance Nudged Response Staggers, catches self Standing with Eyes Closed Steady Turning Step Pattern Turning 360 Degrees Discontinuous steps Stability Turning 360 Degrees Unsteady, grabs/staggers Sitting Down Sitting Down Safe, steady Gait and Step Initiation of Gait No hesitancy Right Foot Step Length Does not pass stance ft. Right Foot Step Height Completely clears floor Left Foot Step Length Does pass stance foot Left Foot Step Height Completely clears floor Step Description Step Symmetry Step length not equal Step Continuity Stopping or discontinuity Gait Description Path Description Mild/moderate deviation Trunk Description Marked sway or uses aide Walking Stance Heels apart Scoring and Interpretation Tinetti Composite Score (points) 17 Interpretation of Scores High risk for falls(< 19) Tinetti Impairment Rating from Composite 20 to <40% Impaired (Score 17- Score 22) PT-OP-E Functional Tests Start: 10/18/24 14:21 Freq: Status: Active Protocol: Document 10/18/24 10:45 DCW (Rec: 10/18/24 14:38 DCW [id number]) Functional Tests 30 Second Sit to Stand Test Score x19 repetitions Timed Up and Go (TUG) Score 10.3 /s AD Comments Three-trial Average (10.67, 10 .28, 9.94) PT-OP-G Mobility & Gait Start: 10/18/24 14:21 Freq: Status: Active Protocol: Document 10/18/24 10:45 DCW (Rec: 10/18/24 14:38 DCW [id number]) OP Gait Assessment Gait Gait Assistance Required: Independent Assistive Devices Assistive Device Tripod Cane/Hurry Cane Gait Deviations General Gait Pattern Ataxic,Decreased Stride Length ,Festinating,Wide Based Gait Comments Gait Comments Severe Festinating gait pattern, occasional difficulty initiating movement. Ambulates with halting gait. PT-OP-M Strength Start: 10/18/24 14:21 Freq: Status: Active Protocol: Document 10/18/24 10:45 DCW (Rec: 10/18/24 14:38 DCW [id number]) Hip Strength Hip Manual Muscle Testing Right Flexion (L2) 4+ Good+ Extension (S1) 4 Good Abduction 4 Good Adduction 4 Good External Rotation 4+ Good+ Internal Rotation 4+ Good+ Left Flexion (L2) 4+ Good+ Extension (S1) 4- Good- Abduction 4 Good Adduction 4 Good External Rotation 4+ Good+ Internal Rotation 4+ Good+ Knee Strength Knee Manual Muscle Testing Right Flexion (S2) 4+ Good+ Extension (L3) 4+ Good+ Left Flexion (S2) 4+ Good+ Extension (L3) 4+ Good+ Ankle/Foot Strength Ankle and Foot Manual Muscle Testing Right Dorsiflexion (L4) 4+ Good+ Left Dorsiflexion (L4) 4+ Good+ PT-OP-Q Treatments Start: 10/18/24 14:21 Freq: Status: Active Protocol: Document 10/20/24 10:45 DCW (Rec: 10/20/24 11:36 DCW [id number]) Cardio Equipment Recumbent Stepper (Sci-Fit) Duration (Minutes) 5 Resistance 7 Seat Position 8, arms at 7 Other [employer] Equipment Shuttle Balance Red Details WBOS, Staggered Gait Training Gait Activity Metronome Description Trial with Metronome Comments 2MWT without metronome: 246' 2MWT at 90 bpm: 265' Neuro Re-Education Treatment Balance Activities Hurdles Details Hurdles Equipment // bars Comments Forward, Lateral PT-OP-T Assessment and Plan Start: 10/18/24 14:21 Freq: Status: Active Protocol: Document 10/20/24 10:45 DCW (Rec: 10/20/24 11:36 DCW [id number]) Physical Therapy Assessment Impairments Impairments Balance,Coordination, Functional Activities, Functional Mobility,Gait, Strength Other Concerns Fall Risk Yes, per score on Allen Balance (44/56) and Tinetti (17/28) Goals Two Impairment Pt experiencing increased difficulty ambulating on uneven trails Substation Operator Apprentice Goal (LTG) Pt to demonstrate a decreased falls risk by improving Tinetti score by at least six points to 23/28 in order to improve safety when walking through the [employer] land. LTG Duration 01/16/25 One Impairment Pt does not have an appropriate home exercise program Short Term Goal (STG) PT to be independent and compliant with an appropriate HEP STG Duration 11/18/24 Assessment Summary Assessment Pt demonstrates significant improvement with quality of gait with use of metronome. Displays equal stride length and no freezing gait when metronome is on. Good response to balance challenges, able to tolerate Shuttle Balance well. Continue to focus on gait, balance, and functional mobility. Physical Therapy Plan Frequency and Duration Frequency of Treatment 2x/Week Plan of Care Start Date 10/18/24 Plan of Care End Date 01/16/25 Therapeutic Interventions Therapeutic Interventions Balance Training,Coordination Training,Gait Training,Home Exercise Program,Joint Mobilizations,Manual Therapy, Neuromuscular Re-education, Patient/Caregiver Education, Self-Care/Home Management,Soft Tissue Mobilization, Therapeutic Activities, Therapeutic Exercises Next Visit Focus/Plan Next Note Type Treatment Note Next Visit Plan Static/dynamic balance challenges, gait training, coordination training
--- NOTE | 2024-10-26 09:41 | PT.OPDS ---
Current Diagnoses Parkinson's disease with dyskinesia, without mention of fluctuations (10/20/24) Ataxic gait (10/20/24) Unsteadiness on feet (10/20/24) Other abnormalities of gait and mobility (10/20/24) Visit Care Team Role Provider Type Albert Dickey DO Attending Provider Physician Family Provider Primary Care Provider Referring Provider Specialty: [facility] Practice Address: [address] [place] [address], [facility] Email: [email or web address] Visit Number Visit Number 2 Discharge Summary PT-OP-B Current Condition Start: 10/18/24 14:21 Freq: Status: Active Protocol: Document 10/18/24 10:45 DCW (Rec: 10/18/24 14:29 DCW [id number]) Current Condition History of Current Condition Onset Date 2017 Current Complaints Parkinson's, declining balance History of Current Condition Pt is an 79 year old male presenting with complaints of worsening balance and gait secondary to Parkinson's Disease. Pt reports he was first diagnosed in 2018, although his right hand tremor first appeared in 2014. Pt notes PD symptoms are progressing rather slowly, and his tremor doesn't seem to be getting worse. Pt has to self-cath himself 4x/day due to neurogenic bladder. Pt notes only one fall in the last ~5 years, reports it was only because he was in a hurry and not paying attention. Pt typically uses a SPC in the community and a quad cane at home. Does have Trekking poles that he uses when out for his daily walk, typically lasting about 30 minutes. Does walk on trails, but only when his goes with him. Pt reports he and his have had conversations about moving to [facility], but would rather stay independent for as long as they can. PT-OP-C Subjective Start: 10/18/24 14:21 Freq: Status: Active Protocol: Document 10/20/24 10:45 DCW (Rec: 10/20/24 11:36 DCW [id number]) OP-PT Subjective Patient Comments Patient Comments I can help some with my freezing gait if I think about it constantly, but as soon as I stop paying attention, I lose it. PT-OP-D Balance Start: 10/18/24 14:21 Freq: Status: Active Protocol: Document 10/18/24 10:45 DCW (Rec: 10/18/24 14:38 DCW [id number]) Balance Tests Allen Balance Test Allen Balance Test Score 44/56 Allen Impairment Rating 20 to 39% Impaired (Score 34- 44) Allen Balance Assessment Evaluation Sitting to Standing Ability Independent w/out Hands Unsupported Stance Supervision- 2 minutes Sitting Unsupported, Feet on Floor Safely- 2 minutes Standing to Sitting Ability Safely, Minimal Hand Use Transfer Ability Safely, Hand Use Unsupported Stance- Eyes Closed Supervision, 10 seconds Unsupported Stance- Eyes Open Independent, 1 minute Reaching Forward Standing Confidently, 10 inches Pick- Up Object From Floor Independent/Safe Look Behind Shoulder - Standing Shifts Weight Well Turning 360 Degrees Supervision/Verbal Cues Unsupported Stance, Alternating Feet on 4 Steps w/Supervision Stair Unsupported Tandem Stance Holds Tandem- 30 seconds Unilateral Leg Stance Lifts Leg/Unable to Hold Total Score Allen Total Score (out of 56 points) 44 Allen Impairment Rating 20 to 39% Impaired (Score 34- 44) Tinetti Balance Assessment Sitting Balance Sitting Balance Steady, safe Arising from Chair Ability to Arise Able, w/o using arms Attempts to Arise Arises on 1st attempt Standing Balance Immediate Standing Balance Steady w/o support Standing Balance Steady, wide stance Nudged Response Staggers, catches self Standing with Eyes Closed Steady Turning Step Pattern Turning 360 Degrees Discontinuous steps Stability Turning 360 Degrees Unsteady, grabs/staggers Sitting Down Sitting Down Safe, steady Gait and Step Initiation of Gait No hesitancy Right Foot Step Length Does not pass stance ft. Right Foot Step Height Completely clears floor Left Foot Step Length Does pass stance foot Left Foot Step Height Completely clears floor Step Description Step Symmetry Step length not equal Step Continuity Stopping or discontinuity Gait Description Path Description Mild/moderate deviation Trunk Description Marked sway or uses aide Walking Stance Heels apart Scoring and Interpretation Tinetti Composite Score (points) 17 Interpretation of Scores High risk for falls(< 19) Tinetti Impairment Rating from Composite 20 to <40% Impaired (Score 17- Score 22) PT-OP-E Functional Tests Start: 10/18/24 14:21 Freq: Status: Active Protocol: Document 10/18/24 10:45 DCW (Rec: 10/18/24 14:38 DCW [id number]) Functional Tests 30 Second Sit to Stand Test Score x19 repetitions Timed Up and Go (TUG) Score 10.3 /s AD Comments Three-trial Average (10.67, 10 .28, 9.94) PT-OP-G Mobility & Gait Start: 10/18/24 14:21 Freq: Status: Active Protocol: Document 10/18/24 10:45 DCW (Rec: 10/18/24 14:38 DCW [id number]) OP Gait Assessment Gait Gait Assistance Required: Independent Assistive Devices Assistive Device Tripod Cane/Hurry Cane Gait Deviations General Gait Pattern Ataxic,Decreased Stride Length ,Festinating,Wide Based Gait Comments Gait Comments Severe Festinating gait pattern, occasional difficulty initiating movement. Ambulates with halting gait. PT-OP-M Strength Start: 10/18/24 14:21 Freq: Status: Active Protocol: Document 10/18/24 10:45 DCW (Rec: 10/18/24 14:38 DCW [id number]) Hip Strength Hip Manual Muscle Testing Right Flexion (L2) 4+ Good+ Extension (S1) 4 Good Abduction 4 Good Adduction 4 Good External Rotation 4+ Good+ Internal Rotation 4+ Good+ Left Flexion (L2) 4+ Good+ Extension (S1) 4- Good- Abduction 4 Good Adduction 4 Good External Rotation 4+ Good+ Internal Rotation 4+ Good+ Knee Strength Knee Manual Muscle Testing Right Flexion (S2) 4+ Good+ Extension (L3) 4+ Good+ Left Flexion (S2) 4+ Good+ Extension (L3) 4+ Good+ Ankle/Foot Strength Ankle and Foot Manual Muscle Testing Right Dorsiflexion (L4) 4+ Good+ Left Dorsiflexion (L4) 4+ Good+ PT-OP-T Assessment and Plan Start: 10/18/24 14:21 Freq: Status: Active Protocol: Document 10/26/24 09:40 DCW (Rec: 10/26/24 09:41 DCW [id number]) Physical Therapy Assessment Goals Two Impairment Pt experiencing increased difficulty ambulating on uneven trails Assisted Goal (LTG) Pt to demonstrate a decreased falls risk by improving Tinetti score by at least six points to 23/28 in order to improve safety when walking [place] the [place]. LTG Duration 01/16/25 One Impairment Pt does not have an appropriate home exercise program Short Term Goal (STG) PT to be independent and compliant with an appropriate HEP STG Duration 11/18/24 Assessment Summary Assessment Pt phoned clinic to request cancellation of remaining visits, states he is ready for discharge. Physical Therapy Plan Discharge Physical Therapy Discharge Reasons Patient Request
== END 2025-04-11 10:00 | disposition home or self-care (01) ==
LOC: PHYS 10:45
PROVIDERS: Family Provider Family Medicine; PCP Family Medicine; Referring Provider Family Medicine; Visit Provider Family Medicine
DX: R26.81 Unsteadiness on feet (principal); G20.B1 Parkinson's disease with dyskinesia, without mention of fluctuations; R26.89 Other abnormalities of gait and mobility; R26.0 Ataxic gait
CPT/HCPCS: 97112; 97116; 97163

== ENCOUNTER → 2024-12-02 12:36 | Outpatient (CLI) | payer MEDICARE, SELFPAY ==
--- NOTE | 2024-12-02 12:37 | DI.RAD.S_ITS ---
PROCEDURE: XR LUMBAR SPINE MIN 4V INDICATIONS: SCREENING TECHNIQUE: 5 views of the lumbar spine were acquired, including bilateral oblique views. COMPARISON: [facility], CR, XR LUMBAR SPINE MIN 4V, 10/29/2022, 10:11. FINDINGS: Bones: 5 nonrib-bearing vertebrae are present. Trace dextroscoliosis has its apex about the L3-L4 interspace. Anterolisthesis of L4 on L5 measures 4 mm. There is otherwise normal bony alignment. Moderate to severe disc height loss at the L4-L5 and L5- S1 levels with adjacent endplate sclerosis and anterior osteophytosis. Chronic appearing anterior wedging deformity of the L3 vertebral body has resulted in less than 25% anterior height loss. No acute vertebral body compression fractures. No suspicious bony lesions. Soft tissues: Overlying bowel gas pattern is normal. No suspicious soft tissue calcifications. Oblique images: No pars defects. IMPRESSION: Degenerative change of the lumbar spine including anterolisthesis of L4 on L5 and chronic appearing anterior wedging deformity of the L3 vertebral body resulting in less than 25% anterior height loss without evidence of acute bony abnormality. Dictated by: Marlon Saldana M.D. on 12/02/2024 at 23:58 Approved by: Marlon Saldana M.D. on 12/03/2024 at 0:00
--- NOTE | 2024-12-02 12:37 | DI.RAD.S_ITS ---
PROCEDURE: XR THORACIC SPINE 3V INDICATIONS: Worsening atraumatic mid and lower back pain TECHNIQUE: 4 views of the thoracic spine were acquired. COMPARISON: None. FINDINGS: Moderate motion artifact significantly obscures detail. Bones: No definite fractures or dislocations. Degenerative change at consecutive levels of the thoracic spine includes disc height loss, adjacent endplate sclerosis and anterior osteophytosis. No suspicious bony lesions. 12 pairs of ribs are noted, and appear intact where visualized. Soft tissues: No paravertebral stripe thickening. IMPRESSION: Limited exam secondary to motion artifact which significantly obscures detail, especially on the lateral views. No gross evidence of acute fracture. Degenerative changes are present. Dictated by: Marlon Saldana M.D. on 12/03/2024 at 0:00 Approved by: Marlon Saldana M.D. on 12/03/2024 at 0:09
== END ==
PROVIDERS: Family Provider Family Medicine; PCP Family Medicine; Referring Provider Family Medicine; Visit Provider Family Medicine
DX: M51.16 Intervertebral disc disorders with radiculopathy, lumbar region (principal); M47.26 Other spondylosis with radiculopathy, lumbar region; M43.16 Spondylolisthesis, lumbar region; M43.8X6 Other specified deforming dorsopathies, lumbar region; M47.814 Spondylosis without myelopathy or radiculopathy, thoracic region; G20.B1 Parkinson's disease with dyskinesia, without mention of fluctuations; M54.9 Dorsalgia, unspecified
CPT/HCPCS: 72072; 72110

== ENCOUNTER → 2024-12-05 10:21 | Outpatient (CLI) | payer MEDICARE, SELFPAY ==
--- NOTE | 2024-12-05 10:22 | DI.ECHO.S_ITS ---
[place] [facility] +---------+ [facility] : : [address] : : [place] : : [id number] : : Phone: [phone] Echocardiogram Report + + :Name: JODI BLANTON Study Date: 12/05/2024 Height: 67 in : :[facility] ReadingLocation: Weight: 148 lb : : Gender: Male BSA: 1.8 m2 : :: 1945 Age: 79 yrs BP: 102/67 mmHg: :Reason For Study: Systolic Heart Failure : :Ordering Physician: KATTY AJ Performed By: Graciela Castellanos : :Referring: KATTY AJ : + + Interpretation Summary 1. The left ventricular contractility is mildly compromised. Estimate ejection fractions is 40 to 45%. There is mild hypokinesis of the inferior segment. No LVH. Unable to comment diastolic function. 2. The right ventricle contractility appears to be normal. 3. Mild mitral regurgitation. 4. Trace tricuspid regurgitation. 5. No obvious intracardiac shunts. 6. No obvious intracardiac masses nor thrombi. 7. No hemodynamically significant pericardial effusion. Conclusion: Mildly compromised left ventricular systolic function. When compared with previous echocardiogram, there is an improvement in the left ventricular contractility. Procedure: A two-dimensional transthoracic echocardiogram with color flow and Doppler was performed in limited views only. The study quality was technically adequate. Comparison is made with the echocardiogram of 04-27-24. The heart rate ranged between 59-60 bpm during the study. Left Ventricle: The left ventricle is normal in size and wall thickness. The ejection fraction is estimated to be 40-45%. There is mid anteroseptal wall akinesis. Diastolic function could not be accurately assessed due to unobtainable data. Right Ventricle: The right ventricle grossly appears normal in size with probable normal systolic function. MMode/2D Measurements & Calculations LVIDd: 4.6 cm IVC diam: 1.9 cm LVIDs: 2.6 cm FS: 44.0 % IVSd: 0.80 cm LVPWd: 0.52 cm LV peralta. diameter/BSA (cm/m^2): 2.6 LV sys. diameter/BSA (cm/m^2): 1.4 Doppler Measurements & Calculations MV E max ryan: 46.5 cm/sec TR max ryan: 187.8 cm/sec MV A max ryan: 43.0 cm/sec TR max P.1 mmHg MV E/A: 1.1 Med Peak E' Ryan: 5.8 cm/sec E/E' med: 8.0 Lat Peak E' Ryan: 5.4 cm/sec E/E' lat: 8.6 E/e' average: 8.3 MV dec time: 0.34 sec Reading Physician:JAMES
== END ==
LOC: ECHO 10:21
PROVIDERS: Family Provider Family Medicine; PCP Family Medicine; Referring Provider Internal Medicine; Visit Provider Internal Medicine
DX: I34.0 Nonrheumatic mitral (valve) insufficiency (principal); I50.20 Unspecified systolic (congestive) heart failure
CPT/HCPCS: 93307

== ENCOUNTER → 2025-03-08 11:24 | Outpatient (CLI) | payer MEDICARE, SELFPAY ==
[2025-03-08 12:58] LABS: Prostate Specific Antigen 2.39 ng/mL (0.10-4.00)
== END ==
PROVIDERS: Family Provider Family Medicine; PCP Family Medicine; Referring Provider Family Medicine; Visit Provider Urology
DX: N40.1 Benign prostatic hyperplasia with lower urinary tract symptoms (principal); Z12.5 Encounter for screening for malignant neoplasm of prostate
CPT/HCPCS: 36415; 84153

== ENCOUNTER → 2025-06-12 08:34 | Outpatient (CLI) | payer MEDICARE, SELFPAY ==
[2025-06-12 09:29] LABS: Blood Urea Nitrogen 18 mg/dL (9-20); Calcium 9.4 mg/dL (8.4-10.2); Carbon Dioxide 25 mmol/L (22-32); Chloride 101 mmol/L (98-107); Cholesterol 140 mg/dL (140-199); Estimated Glomerular Filt Rate > 60 mL/min (>60); Glucose 96 mg/dL (70-99); HDL Cholesterol 67 mg/dL (40-60); HEMOLYSIS < 15 (0-50); Potassium 4.5 mmol/L (3.4-5.1); Sodium 134 mmol/L (137-145); Triglycerides 58 mg/dL (35-150)
== END ==
PROVIDERS: Family Provider Family Medicine; PCP Family Medicine; Referring Provider Internal Medicine; Visit Provider Internal Medicine
DX: E78.5 Hyperlipidemia, unspecified (principal); I50.22 Chronic systolic (congestive) heart failure
CPT/HCPCS: 36415; 80048; 80061